=== PATIENT | female | born 1985 | race Caucasian/White ===

== ENCOUNTER → 2016-09-06 | Outpatient (CLI) | payer MEDICAID ==
--- NOTE | 2016-09-09 18:45 | US ---
EXAM DATE: 09/06/16 PATIENT'S AGE: 30 Patient: RYAN DAVIS Facility: [place], [place] Site . Site : 1985 Study: US OB Pelvis [id number]/10/2017 5:01:19 PM Ordering Physician: Sandra Pelaez Final Report: INDICATION: survey. TECHNIQUE: Conventional transabdominal two-dimensional grayscale ultrasound examination. COMPARISON: None. FINDINGS: There is a living fetus with gestational age of 20 weeks 6 days by LMP and 20 weeks 5 days by today`s measurements. EDC based on LMP is 01/18/2017. BPD: 4.8 cm, 20 weeks 5 days Head circumference: 18.4 cm, 20 weeks 4 days Abdominal circumference: 15.0 cm, 20 weeks 3 days Femur length: 3.6 cm, 21 weeks 4 days The weight is estimated at 386 grams, the 48th percentile. The heart rate is measured at 147 beats per minute and the rhythm appears regular. The quality of the survey is less than optimal due to the patient`s large body habitus. The head and spine are grossly intact. No gross facial abnormality is evident. The upper lip is intact. Four cardiac chambers are demonstrated. The heart and stomach appear to be on the same side. The diaphragm is intact. Two kidneys and a bladder are demonstrated. The cord insertion is normal and 3 cord vessels are noted. Four extremities are demonstrated. The amniotic fluid volume is within normal limits with CELIA of 16 cm. The placenta is anterior with no evidence of previa. IMPRESSION: 1. Living fetus with gestational age of 20 weeks 6 days by LMP and 20 weeks 5 days by today`s measurements. EDC based on LMP is 01/18/2017. 2. Less than optimal survey due to the patient`s large body habitus. No gross anomaly evident. Dictated by Sherman Gamino MD @ Sep 09 2016 10:06AM (Electronic Signature) Report Signed by Proxy and Original Signed Document filed in the Medical Record. CHIVOD
== END ==
LOC: MW.US 15:54
PROVIDERS: ATTEND Obstetrics & Gynecology
DX: Z34.90 Encounter for supervision of normal pregnancy, unspecified, unspecified trimester (principal); Z36 Encounter for antenatal screening of mother; Z3A.20 20 weeks gestation of pregnancy
CPT/HCPCS: 76805; 76805-26

== ENCOUNTER → 2016-09-06 | Outpatient (CLI) | payer MEDICAID | LOC: MW.CHOBGYN 14:33 | PROVIDERS: ATTEND Obstetrics & Gynecology | DX: O20.0 Threatened abortion (principal) | CPT/HCPCS: 81003 ==

== ENCOUNTER → 2016-10-16 | Outpatient (CLI) | payer MEDICAID | LOC: MW.CHOBGYN 10:20 | PROVIDERS: ATTEND Obstetrics & Gynecology | DX: Z34.90 Encounter for supervision of normal pregnancy, unspecified, unspecified trimester (principal) | CPT/HCPCS: 36415; 82950; 85027 ==

== ENCOUNTER → 2016-10-18 | Outpatient (CLI) | payer MEDICAID | LOC: MW.CHOBGYN 08:33 | PROVIDERS: ATTEND Obstetrics & Gynecology | DX: O99.810 Abnormal glucose complicating pregnancy (principal) | CPT/HCPCS: 36415; 82951; 83036 ==

== ENCOUNTER 2017-01-08 07:07 | Inpatient (IN) | payer MEDICAID ==
[2017-01-08] MEDS ORDERED: Terbutaline 1 MG/ML SDV SUBCUT PRN (07:18)
[2017-01-08] MEDS ORDERED: Methylergonovine 0.2 MG/1 ML Amp IM PRN (07:18)
[2017-01-08] MEDS ORDERED: Nalbuphine 10 MG/1 ML Vial IVPUSH PRN (07:18)
[2017-01-08] MEDS ORDERED: Misoprostol 200 MCG Tab PO PRN (07:18)
[2017-01-08] MEDS ORDERED: Water For Irrigation,Sterile 1,000 ML Container IRR PRN (07:18)
[2017-01-08] MEDS ORDERED: Sodium Chloride 0.9% 2.5 ML Syringe FLUSH PRN (07:18)
[2017-01-08] MEDS ORDERED: Sodium Chloride 0.9% 10 ML Syringe FLUSH PRN (07:18)
[2017-01-08] MEDS ORDERED: Ampicillin 2 GM in Sodium Chloride 0.9% 100 ML IV ONE (07:18)
[2017-01-08] MEDS ORDERED: Carboprost Tromethamine 250 MCG/1 ML Amp IM PRN (07:18)
[2017-01-08] MEDS ORDERED: Lidocaine 1% 50 ML MDV INJECT PRN (07:18)
[2017-01-08] MEDS ORDERED: Oxytocin/Lactated Ringers 30 UNIT/500 ML BAG IV SCH ×2 (07:30)
[2017-01-08] MEDS ORDERED: Lactated Ringers 1,000 ML IV SCH (07:30)
[2017-01-08] MEDS ORDERED: Dextrose 5%-0.9% NaCl 1,000 ML IV SCH (07:30)
[2017-01-08] MEDS ORDERED: Misoprostol 25 MCG (1/4 of 100 MCG) Tab VAG SCH (07:30)
[2017-01-08 08:28] LABS: CHLORIDE,CL 108 mmol/L (98-110); SODIUM,NA 135 mmol/L (136-146)
[2017-01-08] MEDS: Dextrose 5%-Lactated Ringers 1,000 ML IV SCH ×2 (09:59→21:19)
[2017-01-08] MEDS: Sodium Chloride 0.9% 1,000 ML IV SCH (10:04)
[2017-01-08] MEDS: Butorphanol 1 MG/ML SDV IVPUSH PRN ×4 (14:01→22:33)
[2017-01-08] MEDS: Ampicillin 1 GM in Sodium Chloride 0.9% 50 ML IV SCH ×3 (14:08→23:07)
[2017-01-08] MEDS ORDERED: Ondansetron 4 MG/2 ML SDV IVPUSH PRN (19:08)
[2017-01-08] MEDS: Promethazine 25 MG/ML SDV IM PRN (20:17)
[2017-01-08] MEDS: Misoprostol 25 MCG (1/4 of 100 MCG) Tab VAG PRN (20:19)
[2017-01-09] MEDS: Butorphanol 1 MG/ML SDV IVPUSH PRN ×8 (00:11→17:58)
[2017-01-09] MEDS: Misoprostol 25 MCG (1/4 of 100 MCG) Tab VAG PRN ×4 (00:12→12:28)
[2017-01-09] MEDS: Ampicillin 1 GM in Sodium Chloride 0.9% 50 ML IV SCH ×5 (04:08→21:24)
[2017-01-09] MEDS: Dextrose 5%-Lactated Ringers 1,000 ML IV SCH ×2 (07:42→17:51)
[2017-01-09] MEDS: Promethazine 25 MG/ML SDV IM PRN (12:34)
[2017-01-09] MEDS ORDERED: hydrOXYzine Pamoate 25 MG Cap PO ONE (15:18)
[2017-01-09] MEDS ORDERED: Misoprostol 50 MCG (1/2 of 100 MCG) Tab VAG SCH ×2 (16:30)
[2017-01-09] MEDS: Misoprostol 25 MCG (1/4 of 100 MCG) Tab VAG SCH (16:53)
[2017-01-09] MEDS ORDERED: Ropivacaine 0.2% 2 MG/ML 20 ML SDV ONE (18:56)
--- NOTE | 2017-01-09 19:29 | PCM.PREANE ---
Preanesthetic Assessment - Procedure Proposed Procedure: labor induction on insulin gtt - Anesthesia/Transfusion/Family Hx Anesthesia History: Prior Anesthesia Without Reaction Family History of Anesthesia Reaction: No - Review of Systems Other: Reports: None - Physical Assessment Height: 5 ft 1.5 in Weight: 130 kg ASA Class: 3 Mental Status: Alert & Oriented x3 Airway Class: Mallampati = 2 Dentition: Reports: Normal Dentition, Broken Tooth/Teeth (left front chipped) Thyro-Mental Finger Breadths: 3 Mouth Opening Finger Breadths: 3 ROM/Head Extension: Full - Lab Values: Laboratory Last Values WBC 9.59 K/uL (4.0-11.0) 01/09/17 18:07 RBC 3.65 M/uL (4.30-5.90) L 01/09/17 18:07 Hgb 12.1 g/dL (12.0-16.0) 01/09/17 18:07 Hct 34.8 % (36.0-46.0) L 01/09/17 18:07 MCV 95.3 fL (80.0-98.0) 01/09/17 18:07 MCH 33.2 pg (27.0-32.0) H 01/09/17 18:07 MCHC 34.8 g/dL (31.0-37.0) 01/09/17 18:07 RDW Std Deviation 48.7 fl (28.0-62.0) 01/09/17 18:07 RDW Coeff of Raúl 14 % (11.0-15.0) 01/09/17 18:07 Plt Count 110 K/uL (150-400) L 01/09/17 18:07 MPV 9.60 fL (7.40-12.00) 01/09/17 18:07 Nucleated RBC % 0.0 /100WBC 01/09/17 18:07 Nucleated RBCs # 0 K/uL 01/09/17 18:07 Sodium 135 mmol/L (136-146) L 01/08/17 07:57 Potassium 3.9 mmol/L (3.5-5.1) 01/08/17 07:57 Chloride 108 mmol/L (98-110) 01/08/17 07:57 Carbon Dioxide 21 mmol/L (21-31) 01/08/17 07:57 BUN 9 mg/dL (6.0-23.0) 01/08/17 07:57 Creatinine 0.7 mg/dL (0.6-1.5) 01/08/17 07:57 Est Cr Clr Drug Dosing 92.10 mL/min 01/08/17 07:57 Estimated GFR (MDRD) > 60.0 ml/min 01/08/17 07:57 Glucose 201 mg/dL (60-110) H 01/08/17 07:57 POC Glucose 102 mg/dL (60-110) 01/09/17 18:33 Uric Acid 3.8 mg/dL (2.1-6.2) 01/08/17 07:57 Calcium 8.6 mg/dL (8.8-10.8) L 01/08/17 07:57 Total Bilirubin 0.4 mg/dL (0.1-1.5) 01/08/17 07:57 AST 12 IU/L (5-40) 01/08/17 07:57 ALT 22 IU/L (8-54) 01/08/17 07:57 Alkaline Phosphatase 218 (40-150) H 01/08/17 07:57 Total Protein 5.7 g/dL (6.0-8.0) L 01/08/17 07:57 Albumin 2.7 g/dL (3.5-5.0) L 01/08/17 07:57 Globulin 3.0 g/dL (2.0-3.5) 01/08/17 07:57 Albumin/Globulin Ratio 0.9 (1.3-2.8) L 01/08/17 07:57 Membrane Rupture NEGATIVE 01/08/17 22:20 Urine Opiates Screen NEGATIVE (NEGATIVE) 01/08/17 09:25 Ur Oxycodone Screen NEGATIVE (NEGATIVE) 01/08/17 09:25 Urine Methadone Screen NEGATIVE (NEGATIVE) 01/08/17 09:25 Ur Barbiturates Screen NEGATIVE (NEGATIVE) 01/08/17 09:25 Ur Phencyclidine Scrn NEGATIVE (NEGATIVE) 01/08/17 09:25 Ur Amphetamine Screen NEGATIVE (NEGATIVE) 01/08/17 09:25 U Methamphetamines Scrn NEGATIVE (NEGATIVE) 01/08/17 09:25 U Benzodiazepines Scrn NEGATIVE (NEGATIVE) 01/08/17 09:25 U Cocaine Metab Screen NEGATIVE (NEGATIVE) 01/08/17 09:25 U Marijuana (THC) Screen NEGATIVE (NEGATIVE) 01/08/17 09:25 Blood Type O POSITIVE 01/08/17 07:57 Antibody Screen NEGATIVE 01/08/17 07:57 - Allergies Allergies/Adverse Reactions: Allergies Allergy/AdvReac Type Severity Reaction Status Date / Time No Known Allergies Allergy Verified 05/30/16 20:46 - Blood Blood Available: Yes Product(s) Available: PRBC - Acknowledgements Anesthesia Type Planned: Epidural Pt an Appropriate Candidate for the Planned Anesthesia: Yes Alternatives and Risks of Anesthesia Discussed w Pt/Guardian: Yes Pt/Guardian Understands and Agrees with Anesthesia Plan: Yes PreAnesthesia Questionnaire - Past Health History Medical/Surgical History: Denies 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: Psychiatric History: Reports: Suicide Attempt Endocrine/Metabolic History: Reports: Diabetes, Gestational, Diabetes, Type II Hematologic History: Reports: Other (See Below) Other Hematologic History: thrombocytopenia - Infectious Disease History Infectious Disease History: Reports: None - Past Surgical History GI Surgical History: Reports: Appendectomy, Cholecystectomy - SUBSTANCE USE Smoking Status *Q: Never Smoker Tobacco Use Within Last Twelve Months: Cigarettes Recreational Drug Use History: Yes Recreational Drug Type: Reports: Methamphetamine - HOME MEDS Home Medications: Home Meds Insulin NPH Human Isophane [Humulin N] 100 unit SQ 01/08/17 [History] Insulin Regular, Human [Humulin R] 12 units SUBCUT 01/08/17 [History] Pnv No.95/Ferrous Fum/Folic AC [ Multivitamin Tablet] 1 each PO DAILY [History] Venlafaxine [Effexor XR 24 Hr] 75 mg PO 01/08/17 [History] - CURRENT (IN HOUSE) MEDS Current Meds: Current Medications Butorphanol Tartrate (Stadol) 1 mg IVPUSH Q1H PRN PRN Reason: Pain Last Admin: 01/09/17 17:58 Dose: 1 mg Carboprost Tromethamine (Hemabate Ds) 250 mcg IM ASDIRECTED PRN PRN Reason: Post Hemorrhage Ampicillin Sodium 1 gm/ Sodium (Chloride) 50 mls @ 100 mls/hr IV Q4H ISABEL Last Admin: 01/09/17 16:50 Dose: 100 mls/hr Oxytocin/Lactated Ringer's (Pitocin In Lr 30 Units/500 Ml) 30 unit in 500 mls @ 2 mls/hr IV TITRATE ISABEL; 2 MUNITS/MIN PRN Reason: Protocol Insulin Human Regular 100 unit (/ Sodium Chloride) 100 mls @ 0.5 mls/hr IV TITRATE ISABEL; 0.5 UNIT/HR PRN Reason: Protocol Last Titration: 01/09/17 11:16 Dose: 1 unit/hr, 1 mls/hr Dextrose/Sodium Chloride (Dextrose 5%-Normal Saline) 1,000 mls @ 100 mls/hr IV ASDIRECTED ISABEL Dextrose/Lactated Ringer's (Dextrose 5%-Lactated Ringers) 1,000 mls @ 100 mls/ hr IV ASDIRECTED ISABEL Last Admin: 01/09/17 17:51 Dose: 100 mls/hr Sodium Chloride (Normal Saline) 1,000 mls @ 125 mls/hr IV ASDIRECTED ISABEL Last Infusion: 01/08/17 10:23 Dose: 0 mls/hr Lidocaine HCl (Xylocaine 1%) 50 ml INJECT .ONCE PRN PRN Reason: Laceration repair Methylergonovine Maleate (Methergine) 0.2 mg IM ASDIRECTED PRN PRN Reason: Post Hemorrhage Misoprostol (Cytotec) 200 mcg PO .ONCE PRN PRN Reason: Post Hemorrhage Misoprostol (Cytotec) 25 mcg VAG Q4H ISABEL Last Admin: 01/09/17 16:53 Dose: 25 mcg Ondansetron HCl (Zofran) 8 mg IVPUSH Q4H PRN PRN Reason: Nausea/Vomiting Last Admin: 01/08/17 20:15 Dose: 8 mg Promethazine HCl (Phenergan) 25 mg IM Q4H PRN PRN Reason: Nausea/Vomiting Last Admin: 01/09/17 12:34 Dose: 25 mg Sodium Chloride (Saline Flush) 10 ml FLUSH ASDIRECTED PRN PRN Reason: Keep Vein Open Sodium Chloride (Saline Flush) 2.5 ml FLUSH ASDIRECTED PRN PRN Reason: Keep Vein Open Sterile Water (Sterile Water For Irrigation) 1,000 ml IRR ASDIRECTED PRN PRN Reason: delivery Terbutaline Sulfate (Brethine) 0.25 mg SUBCUT ASDIRECTED PRN PRN Reason: Tacysystole Discontinued Medications Hydroxyzine Pamoate (Vistaril) 50 mg PO ONETIME ONE Stop: 01/09/17 15:19 Last Admin: 01/09/17 15:23 Dose: 50 mg Ampicillin Sodium 2 gm/ Sodium (Chloride) 100 mls @ 200 mls/hr IV ONETIME ONE Stop: 01/08/17 07:47 Last Admin: 01/08/17 10:04 Dose: 200 mls/hr Lactated Ringer's (Ringers, Lactated) 1,000 mls @ 150 mls/hr IV ASDIRECTED ISABEL Oxytocin/Lactated Ringer's (Pitocin In Lr 30 Units/500 Ml) 30 unit in 500 mls @ 999 mls/hr IV TITRATE ISABEL; 999 MUNITS/MIN PRN Reason: Protocol Stop: 01/08/17 08:01 Ropivacaine/Fentanyl/NS (Fentanyl 2 Mcg-Ropiv 0.2%-Ns) Confirm Administered Dose 100 mls @ as directed .ROUTE .STK-MED ONE Stop: 01/09/17 18:56 Misoprostol (Cytotec) 25 mcg VAG .ONCE ISABEL Last Admin: 01/08/17 09:40 Dose: 25 mcg Misoprostol (Cytotec) 25 mcg VAG Q4H PRN PRN Reason: Cervical Ripening Stop: 01/09/17 11:19 Last Admin: 01/09/17 12:28 Dose: 25 mcg Misoprostol (Cytotec) 25 mcg VAG Q4H ISABEL Misoprostol (Cytotec) 25 mcg VAG Q4H ISABEL Nalbuphine HCl (Nubain) 10 mg IVPUSH Q1H PRN PRN Reason: Pain (severe 7-10) Stop: 01/08/17 09:19 Ropivacaine (Naropin 0.2%) Confirm Administered Dose 20 ml .ROUTE .STK-MED ONE Stop: 01/09/17 18:57
[2017-01-10] MEDS: Ampicillin 1 GM in Sodium Chloride 0.9% 50 ML IV SCH ×5 (00:51→12:46)
[2017-01-10] MEDS: Dextrose 5%-Lactated Ringers 1,000 ML IV SCH ×2 (03:51→14:01)
[2017-01-10] MEDS ORDERED: Acetaminophen 500 MG Tab PO ONE (07:15)
[2017-01-10] MEDS: Sodium Chloride 0.9% 1,000 ML IV SCH (13:18)
[2017-01-10] MEDS ORDERED: Ropivacaine HCl/PF 100 ML ONE (13:29)
[2017-01-10] MEDS ORDERED: Bupivacaine 0.5% 10 ML SDV ONE (16:00)
[2017-01-10] MEDS ORDERED: Oxytocin 10 Units/1 ML SDV ONE (16:13)
[2017-01-10] MEDS ORDERED: Ondansetron 4 MG/2 ML SDV ONE (16:13)
[2017-01-10] MEDS ORDERED: ceFAZolin 1 GM Vial ONE (16:16)
[2017-01-10] MEDS ORDERED: Sodium Chloride 0.9% 20 ML ONE (16:16)
[2017-01-10] MEDS ORDERED: ePHEDrine 50 MG/ML SDV ONE (16:24)
[2017-01-10] MEDS ORDERED: Nitroglycerin/D5W 0 MG/0 ML BOTTLE ONE (16:31)
[2017-01-10] MEDS ORDERED: fentaNYL 100 MCG/2 ML SDV ONE (16:42)
[2017-01-10] MEDS ORDERED: Morphine PF 10 MG/10 ML SDV ONE (16:47)
[2017-01-10] MEDS ORDERED: Phenylephrine/Normal Saline 100 MCG/ML 10 ML Syringe ONE (16:59)
[2017-01-10] MEDS ORDERED: Acetaminophen/oxyCODONE 325-5 MG Tab PO PRN (18:04)
[2017-01-10] MEDS ORDERED: Lanolin 100% Cream 7 GM Tube TOP PRN (18:04)
[2017-01-10] MEDS ORDERED: Ondansetron 4 MG/2 ML SDV IV PRN (18:04)
[2017-01-10] MEDS ORDERED: Bisacodyl 10 MG Supp RECTAL PRN (18:04)
[2017-01-10] MEDS ORDERED: diphenhydrAMINE 50 MG/ML SDV IVPUSH PRN ×2 (18:04→18:17)
[2017-01-10] MEDS ORDERED: Lactated Ringers 1,000 ML IV SCH (18:15)
[2017-01-10] MEDS ORDERED: Nalbuphine 10 MG/1 ML Vial IVPUSH PRN (18:17)
[2017-01-10] MEDS ORDERED: Naloxone 0.4 MG/ML Syringe IVPUSH PRN (18:17)
[2017-01-10] MEDS: Ketorolac 30 MG/ML SDV IVPUSH SCH (18:28)
[2017-01-10] MEDS: Docusate Sodium 100 MG Cap PO SCH (22:09)
[2017-01-10] MEDS: Nystatin Topical Powder 15 GM Bottle TOP SCH (22:54)
[2017-01-11] MEDS: Ketorolac 30 MG/ML SDV IVPUSH SCH ×4 (00:25→22:55)
[2017-01-11] MEDS: Misoprostol 25 MCG (1/4 of 100 MCG) Tab VAG SCH ×5 (04:50→10:08)
[2017-01-11] MEDS: Ampicillin 1 GM in Sodium Chloride 0.9% 50 ML IV SCH (04:54)
[2017-01-11] MEDS: Nystatin Topical Powder 15 GM Bottle TOP SCH ×2 (06:31→13:46)
--- NOTE | 2017-01-11 09:47 | PCM.PNPP ---
- General Info Date of Service: 01/11/17 Functional Status: Reports: pain controlled, tolerating diet - Review of Systems General: Denies: Fever, Weakness Pulmonary: Denies: shortness of breath Cardiovascular: Denies: Chest Pain, Palpitations, Lightheadedness Gastrointestinal: Reports: Abdominal pain (incisional--controlled overall with duramorph). Denies: Nausea, Vomiting Genitourinary: Denies: flank pain Psychiatric: Reports: no symptoms - General Info Date of Service: 01/11/17 - Patient Data Vital Signs - most recent: Last Vital Signs Temp 37.2 C 01/11/17 04:00 Pulse 94 01/11/17 07:00 Resp 15 01/11/17 07:00 BP 143/77 H 01/11/17 04:00 Pulse Ox 96 01/11/17 07:00 Weight - most recent: 130 kg I&O - last 24 hours: Intake & Output 01/10/17 01/11/17 01/11/17 22:59 06:59 14:59 Intake Total 2600 Output Total 400 600 Balance 2200 -600 Lab Results - last 24 hrs: Laboratory Results - last 24 hr 01/08/17 01/08/17 01/08/17 Range/Units 07:57 07:57 07:57 WBC 6.20 (4.0-11.0) K/uL RBC 3.47 L (4.30-5.90) M/uL Hgb 11.2 L (12.0-16.0) g/dL Hct 33.1 L (36.0-46.0) % MCV 95.4 (80.0-98.0) fL MCH 32.3 H (27.0-32.0) pg MCHC 33.8 (31.0-37.0) g/dL RDW Std Deviation 47.6 (28.0-62.0) fl RDW Coeff of Raúl 14 (11.0-15.0) % Plt Count 103 L (150-400) K/uL MPV 9.40 (7.40-12.00) fL Neut % (Auto) (48.0-80.0) % Lymph % (Auto) (16.0-40.0) % [place] % (Auto) (0.0-15.0) % Eos % (Auto) (0.0-7.0) % Baso % (Auto) (0.0-1.5) % Neut # (Auto) (1.4-5.7) K/uL Lymph # (Auto) (0.6-2.4) K/uL [place] # (Auto) (0.0-0.8) K/uL Eos # (Auto) (0.0-0.7) K/uL Baso # (Auto) (0.0-0.1) K/uL Nucleated RBC % 0.0 /100WBC Nucleated RBCs # 0 K/uL Sodium 135 L (136-146) mmol/L Potassium 3.9 (3.5-5.1) mmol/L Chloride 108 (98-110) mmol/L Carbon Dioxide 21 (21-31) mmol/L BUN 9 (6.0-23.0) mg/dL Creatinine 0.7 (0.6-1.5) mg/dL Est Cr Clr Drug Dosing 92.10 mL/min Estimated GFR (MDRD) > 60.0 ml/min Glucose 201 H (60-110) mg/dL POC Glucose (60-110) mg/dL Calcium 8.6 L (8.8-10.8) mg/dL Total Bilirubin 0.4 (0.1-1.5) mg/dL AST 12 (5-40) IU/L ALT 22 (8-54) IU/L Alkaline Phosphatase 218 H (40-150) Total Protein 5.7 L (6.0-8.0) g/dL Albumin 2.7 L (3.5-5.0) g/dL Globulin 3.0 (2.0-3.5) g/dL Albumin/Globulin Ratio 0.9 L (1.3-2.8) Blood Type O POSITIVE Antibody Screen NEGATIVE Crossmatch See Detail 01/10/17 01/10/17 01/10/17 Range/Units 10:05 11:08 12:26 WBC (4.0-11.0) K/uL RBC (4.30-5.90) M/uL Hgb (12.0-16.0) g/dL Hct (36.0-46.0) % MCV (80.0-98.0) fL MCH (27.0-32.0) pg MCHC (31.0-37.0) g/dL RDW Std Deviation (28.0-62.0) fl RDW Coeff of Raúl (11.0-15.0) % Plt Count (150-400) K/uL MPV (7.40-12.00) fL Neut % (Auto) (48.0-80.0) % Lymph % (Auto) (16.0-40.0) % [place] % (Auto) (0.0-15.0) % Eos % (Auto) (0.0-7.0) % Baso % (Auto) (0.0-1.5) % Neut # (Auto) (1.4-5.7) K/uL Lymph # (Auto) (0.6-2.4) K/uL [place] # (Auto) (0.0-0.8) K/uL Eos # (Auto) (0.0-0.7) K/uL Baso # (Auto) (0.0-0.1) K/uL Nucleated RBC % /100WBC Nucleated RBCs # K/uL Sodium (136-146) mmol/L Potassium (3.5-5.1) mmol/L Chloride (98-110) mmol/L Carbon Dioxide (21-31) mmol/L BUN (6.0-23.0) mg/dL Creatinine (0.6-1.5) mg/dL Est Cr Clr Drug Dosing mL/min Estimated GFR (MDRD) ml/min Glucose (60-110) mg/dL POC Glucose 141 H 121 H 133 H (60-110) mg/dL Calcium (8.8-10.8) mg/dL Total Bilirubin (0.1-1.5) mg/dL AST (5-40) IU/L ALT (8-54) IU/L Alkaline Phosphatase (40-150) Total Protein (6.0-8.0) g/dL Albumin (3.5-5.0) g/dL Globulin (2.0-3.5) g/dL Albumin/Globulin Ratio (1.3-2.8) Blood Type Antibody Screen Crossmatch 01/10/17 01/10/17 01/10/17 Range/Units 13:35 14:37 17:49 WBC (4.0-11.0) K/uL RBC (4.30-5.90) M/uL Hgb (12.0-16.0) g/dL Hct (36.0-46.0) % MCV (80.0-98.0) fL MCH (27.0-32.0) pg MCHC (31.0-37.0) g/dL RDW Std Deviation (28.0-62.0) fl RDW Coeff of Raúl (11.0-15.0) % Plt Count (150-400) K/uL MPV (7.40-12.00) fL Neut % (Auto) (48.0-80.0) % Lymph % (Auto) (16.0-40.0) % [place] % (Auto) (0.0-15.0) % Eos % (Auto) (0.0-7.0) % Baso % (Auto) (0.0-1.5) % Neut # (Auto) (1.4-5.7) K/uL Lymph # (Auto) (0.6-2.4) K/uL [place] # (Auto) (0.0-0.8) K/uL Eos # (Auto) (0.0-0.7) K/uL Baso # (Auto) (0.0-0.1) K/uL Nucleated RBC % /100WBC Nucleated RBCs # K/uL Sodium (136-146) mmol/L Potassium (3.5-5.1) mmol/L Chloride (98-110) mmol/L Carbon Dioxide (21-31) mmol/L BUN (6.0-23.0) mg/dL Creatinine (0.6-1.5) mg/dL Est Cr Clr Drug Dosing mL/min Estimated GFR (MDRD) ml/min Glucose (60-110) mg/dL POC Glucose 133 H 108 141 H (60-110) mg/dL Calcium (8.8-10.8) mg/dL Total Bilirubin (0.1-1.5) mg/dL AST (5-40) IU/L ALT (8-54) IU/L Alkaline Phosphatase (40-150) Total Protein (6.0-8.0) g/dL Albumin (3.5-5.0) g/dL Globulin (2.0-3.5) g/dL Albumin/Globulin Ratio (1.3-2.8) Blood Type Antibody Screen Crossmatch 01/11/17 01/11/17 Range/Units 06:28 06:28 WBC 14.17 H (4.0-11.0) K/uL RBC 2.69 L (4.30-5.90) M/uL Hgb 8.9 L (12.0-16.0) g/dL Hct 25.5 L (36.0-46.0) % MCV 94.8 (80.0-98.0) fL MCH 33.1 H (27.0-32.0) pg MCHC 34.9 (31.0-37.0) g/dL RDW Std Deviation 47.9 (28.0-62.0) fl RDW Coeff of Raúl 14 (11.0-15.0) % Plt Count 109 L (150-400) K/uL MPV 10.10 (7.40-12.00) fL Neut % (Auto) 83.2 H (48.0-80.0) % Lymph % (Auto) 9.9 L (16.0-40.0) % [place] % (Auto) 6.6 (0.0-15.0) % Eos % (Auto) 0.2 (0.0-7.0) % Baso % (Auto) 0.1 (0.0-1.5) % Neut # (Auto) 11.8 H (1.4-5.7) K/uL Lymph # (Auto) 1.4 (0.6-2.4) K/uL [place] # (Auto) 0.9 H (0.0-0.8) K/uL Eos # (Auto) 0.0 (0.0-0.7) K/uL Baso # (Auto) 0.0 (0.0-0.1) K/uL Nucleated RBC % 0.0 /100WBC Nucleated RBCs # 0 K/uL Sodium 132 L (136-146) mmol/L Potassium 4.0 (3.5-5.1) mmol/L Chloride 103 (98-110) mmol/L Carbon Dioxide 19 L (21-31) mmol/L BUN 20 (6.0-23.0) mg/dL Creatinine 1.3 (0.6-1.5) mg/dL Est Cr Clr Drug Dosing 48.45 mL/min Estimated GFR (MDRD) 47.8 ml/min Glucose 158 H (60-110) mg/dL POC Glucose (60-110) mg/dL Calcium 7.4 L (8.8-10.8) mg/dL Total Bilirubin (0.1-1.5) mg/dL AST (5-40) IU/L ALT (8-54) IU/L Alkaline Phosphatase (40-150) Total Protein (6.0-8.0) g/dL Albumin (3.5-5.0) g/dL Globulin (2.0-3.5) g/dL Albumin/Globulin Ratio (1.3-2.8) Blood Type Antibody Screen Crossmatch Med Orders - Current: Current Medications Bisacodyl (Dulcolax) 10 mg RECTAL .ONCE PRN PRN Reason: Constipation Butorphanol Tartrate (Stadol) 1 mg IVPUSH Q1H PRN PRN Reason: Pain Last Admin: 01/09/17 17:58 Dose: 1 mg Diphenhydramine HCl (Benadryl) 25 mg IVPUSH Q6H PRN PRN Reason: Itching or Nausea Diphenhydramine HCl (Benadryl) 25 mg IVPUSH Q4H PRN PRN Reason: Itching Stop: 01/11/17 18:18 Docusate Sodium (Colace) 100 mg PO BID ISABEL Last Admin: 01/10/17 22:09 Dose: 100 mg Emollient Ointment (Lansinoh Hpa) 0 gm TOP ASDIRECTED PRN PRN Reason: Sore Nipples Oxytocin/Lactated Ringer's (Pitocin In Lr 30 Units/500 Ml) 30 unit in 500 mls @ 2 mls/hr IV TITRATE ISABEL; 2 MUNITS/MIN PRN Reason: Protocol Last Titration: 01/10/17 02:16 Dose: 22 munits/min, 22 mls/hr Insulin Human Regular 100 unit (/ Sodium Chloride) 100 mls @ 0.5 mls/hr IV TITRATE ISABEL; 0.5 UNIT/HR PRN Reason: Protocol Last Titration: 01/10/17 11:19 Dose: 1 unit/hr, 1 mls/hr Sodium Chloride (Normal Saline) 1,000 mls @ 125 mls/hr IV ASDIRECTED ISABEL Last Admin: 01/10/17 13:18 Dose: 125 mls/hr Lactated Ringer's (Ringers, Lactated) 1,000 mls @ 125 mls/hr IV ASDIRECTED [facility] Last Admin: 01/10/17 22:12 Dose: 125 mls/hr Ibuprofen (Motrin) 800 mg PO Q8H PRN PRN Reason: mild pain or fever Ketorolac Tromethamine (Toradol) 30 mg IVPUSH Q6H [facility] Stop: 01/11/17 18:16 Last Admin: 01/11/17 06:27 Dose: 30 mg Lidocaine HCl (Xylocaine 1%) 50 ml INJECT .ONCE PRN PRN Reason: Laceration repair Methylergonovine Maleate (Methergine) 0.2 mg IM ASDIRECTED PRN PRN Reason: Post Hemorrhage Misoprostol (Cytotec) 200 mcg PO .ONCE PRN PRN Reason: Post Hemorrhage Misoprostol (Cytotec) 25 mcg VAG Q4H [facility] Last Admin: 01/11/17 04:51 Dose: Not Given Nalbuphine HCl (Nubain) 5 mg IVPUSH Q3H PRN PRN Reason: Pruritis Stop: 01/11/17 18:18 Naloxone HCl (Narcan) 0.1 mg IVPUSH ONETIME PRN PRN Reason: Respiratory Depression Stop: 01/11/17 18:18 Nystatin (Nystop) 0 gm TOP TID [facility] Last Admin: 01/11/17 06:31 Dose: 1 applic Ondansetron HCl (Zofran) 8 mg IVPUSH Q4H PRN PRN Reason: Nausea/Vomiting Last Admin: 01/08/17 20:15 Dose: 8 mg Ondansetron HCl (Zofran) 4 mg IV Q4H PRN PRN Reason: Nausea/Vomiting Oxycodone/Acetaminophen (Percocet 325-5 Mg) 1 tab PO Q4H PRN PRN Reason: Pain (moderate 4-6) Oxycodone/Acetaminophen (Percocet 325-5 Mg) 2 tab PO Q4H PRN PRN Reason: Pain (moderate 4-6) Promethazine HCl (Phenergan) 25 mg IM Q4H PRN PRN Reason: Nausea/Vomiting Last Admin: 01/09/17 12:34 Dose: 25 mg Sodium Chloride (Saline Flush) 10 ml FLUSH ASDIRECTED PRN PRN Reason: Keep Vein Open Sodium Chloride (Saline Flush) 2.5 ml FLUSH ASDIRECTED PRN PRN Reason: Keep Vein Open Sterile Water (Sterile Water For Irrigation) 1,000 ml IRR ASDIRECTED PRN PRN Reason: delivery Terbutaline Sulfate (Brethine) 0.25 mg SUBCUT ASDIRECTED PRN PRN Reason: Tacysystole Discontinued Medications Acetaminophen (Tylenol Extra Strength) 1,000 mg PO ONETIME ONE Stop: 01/10/17 07:16 Last Admin: 01/10/17 07:19 Dose: 1,000 mg Bupivacaine HCl (Sensorcaine-Mpf 0.5%) Confirm Administered Dose 10 ml .ROUTE .STK-MED ONE Stop: 01/10/17 16:01 Last Admin: 01/11/17 04:51 Dose: Not Given Carboprost Tromethamine (Hemabate Ds) 250 mcg IM ASDIRECTED PRN PRN Reason: Post Hemorrhage Cefazolin Sodium (Ancef) Confirm Administered Dose 3 gm .ROUTE .STK-MED ONE Stop: 01/10/17 16:17 Ephedrine Sulfate (Ephedrine Sulfate) Confirm Administered Dose 50 mg .ROUTE .STK-MED ONE Stop: 01/10/17 16:25 Fentanyl (Sublimaze) Confirm Administered Dose 100 mcg .ROUTE .STK-MED ONE Stop: 01/10/17 16:43 Glycopyrrolate () Confirm Administered Dose 1 mg .ROUTE .STK-MED ONE Stop: 01/10/17 16:25 Hydroxyzine Pamoate (Vistaril) 50 mg PO ONETIME ONE Stop: 01/09/17 15:19 Last Admin: 01/09/17 15:23 Dose: 50 mg Ampicillin Sodium 2 gm/ Sodium (Chloride) 100 mls @ 200 mls/hr IV ONETIME ONE Stop: 01/08/17 07:47 Last Admin: 01/08/17 10:04 Dose: 200 mls/hr Ampicillin Sodium 1 gm/ Sodium (Chloride) 50 mls @ 100 mls/hr IV Q4H ISABEL Last Admin: 01/11/17 04:54 Dose: Not Given Lactated Ringer's (Ringers, Lactated) 1,000 mls @ 150 mls/hr IV ASDIRECTED ISABEL Oxytocin/Lactated Ringer's (Pitocin In Lr 30 Units/500 Ml) 30 unit in 500 mls @ 999 mls/hr IV TITRATE ISABEL; 999 MUNITS/MIN PRN Reason: Protocol Stop: 01/08/17 08:01 Dextrose/Sodium Chloride (Dextrose 5%-Normal Saline) 1,000 mls @ 100 mls/hr IV ASDIRECTED ISABEL Dextrose/Lactated Ringer's (Dextrose 5%-Lactated Ringers) 1,000 mls @ 100 mls/ hr IV ASDIRECTED ISABEL Last Admin: 01/10/17 14:01 Dose: 100 mls/hr Ropivacaine/Fentanyl/NS (Fentanyl 2 Mcg-Ropiv 0.2%-Ns) Confirm Administered Dose 100 mls @ as directed .ROUTE .STK-MED ONE Stop: 01/09/17 18:56 Ropivacaine/Fentanyl/NS (Fentanyl 2 Mcg-Ropiv 0.2%-Ns) Confirm Administered Dose 100 mls @ as directed .ROUTE .STK-MED ONE Stop: 01/10/17 03:36 Last Admin: 01/11/17 04:51 Dose: Not Given Ropivacaine (Naropin 0.2%) Confirm Administered Dose 100 mls @ as directed .ROUTE .STK-MED ONE Stop: 01/10/17 13:30 Last Admin: 01/11/17 04:51 Dose: Not Given Sodium Chloride (Normal Saline) Confirm Administered Dose 20 mls @ as directed .ROUTE .STK-MED ONE Stop: 01/10/17 16:17 Nitroglycerin/Dextrose (Nitroglycerin 25 Mg/D5w 250 Ml) Confirm Administered Dose 25 mg in 250 mls @ as directed .ROUTE .STK-MED ONE Stop: 01/10/17 16:32 Misoprostol (Cytotec) 25 mcg VAG .ONCE ISABEL Last Admin: 01/08/17 09:40 Dose: 25 mcg Misoprostol (Cytotec) 25 mcg VAG Q4H PRN PRN Reason: Cervical Ripening Stop: 01/09/17 11:19 Last Admin: 01/09/17 12:28 Dose: 25 mcg Misoprostol (Cytotec) 25 mcg VAG Q4H ISABEL Misoprostol (Cytotec) 25 mcg VAG Q4H ISABEL Morphine Sulfate (Duramorph Pf) Confirm Administered Dose 10 mg .ROUTE .STK-MED ONE Stop: 01/10/17 16:48 Nalbuphine HCl (Nubain) 10 mg IVPUSH Q1H PRN PRN Reason: Pain (severe 7-10) Stop: 01/08/17 09:19 Ondansetron HCl (Zofran) Confirm Administered Dose 4 mg .ROUTE .STK-MED ONE Stop: 01/10/17 16:14 Oxytocin (Pitocin) Confirm Administered Dose 20 unit .ROUTE .STK-MED ONE Stop: 01/10/17 16:14 Phenylephrine HCl (Phenylephrine In Ns 100 Mcg/Ml) Confirm Administered Dose 1 mg .ROUTE .STK-MED ONE Stop: 01/10/17 17:00 Ropivacaine (Naropin 0.2%) Confirm Administered Dose 20 ml .ROUTE .STK-MED ONE Stop: 01/09/17 18:57 - Infant Interaction Support Person: Sister - Recovery Exam Fundal Tone: Firm Fundal Level: At Umbilicus Fundal Placement: Midline Lochia Amount: Scant Lochia Color: Rubra/Red Perineum Description: Other (see below) Other Perinuem Description: Vaginal laceration Bladder Status: Indwelling Catheter in Place Urinary Elimination: Indwelling Catheter - Exam General: alert, oriented Lungs: Normal respiratory effort, Rhonchi Cardiovascular: Regular Rate Abdomen: bowel sounds present, soft. No: CVA tenderness Extremities: no calf tenderness Skin: warm, dry, intact Wound/Incisions: no drainage. No: erythema Psy/Mental Status: alert - Problem List & Annotations (1) delivery delivered SNOMED Code(s): 282758535 Code(s): O82 - ENCOUNTER FOR DELIVERY WITHOUT INDICATION Status: Acute Current Visit: Yes - Problem List Review Problem List Initiated/Reviewed/Updated: Yes - Assessment Assessment:: POD 1 status post Primary LTCS GDM - Plan Plan:: Ambulate today, amin removed. Labs are stable. Glucose 158, will monitor bid and consider oral hypoglycemic as indicated. Continue PP cares.
--- NOTE | 2017-01-11 10:25 | PCM48HPAN ---
Post Anesthesia Note - EVALUATION WITHIN 48HRS OF ANESTHETIC Vital Signs in Normal Range: Yes Patient Participated in Evaluation: Yes Respiratory Function Stable: Yes Airway Patent: Yes Cardiovascular Function Stable: Yes Hydration Status Stable: Yes Pain Control Satisfactory: Yes Nausea and Vomiting Control Satisfactory: Yes Mental Status Recovered: Yes
[2017-01-11] MEDS: Docusate Sodium 100 MG Cap PO SCH ×2 (13:27→22:59)
[2017-01-11] MEDS: Acetaminophen/oxyCODONE 325-5 MG Tab PO PRN ×2 (17:54→23:19)
[2017-01-11] MEDS: Ibuprofen 800 MG Tab PO PRN (22:59)
[2017-01-12] MEDS: Acetaminophen/oxyCODONE 325-5 MG Tab PO PRN ×3 (05:13→21:15)
[2017-01-12] MEDS: Nystatin Topical Powder 15 GM Bottle TOP SCH ×4 (08:19→22:10)
[2017-01-12] MEDS: Docusate Sodium 100 MG Cap PO SCH ×2 (08:19→21:11)
[2017-01-12] MEDS: Ibuprofen 800 MG Tab PO PRN ×2 (08:19→16:34)
--- NOTE | 2017-01-12 11:18 | PCM.PNPP ---
- General Info Date of Service: 01/12/17 Functional Status: Reports: pain controlled, tolerating diet, ambulating, urinating - Review of Systems General: Denies: Fever, Weakness Pulmonary: Denies: shortness of breath Cardiovascular: Denies: Chest Pain, Palpitations, Lightheadedness Gastrointestinal: Reports: Flatus. Denies: Nausea, Vomiting Genitourinary: Denies: flank pain Neurological: Denies: Headache Psychiatric: Reports: no symptoms - General Info Date of Service: 01/12/17 - Patient Data Vital Signs - most recent: Last Vital Signs Temp 36.0 C 01/12/17 04:00 Pulse 96 01/12/17 04:00 Resp 15 01/12/17 04:00 BP 131/76 01/12/17 04:00 Pulse Ox 99 01/12/17 04:00 Weight - most recent: 130 kg Lab Results - last 24 hrs: Laboratory Results - last 24 hr 01/08/17 01/11/17 01/12/17 Range/Units 07:57 17:30 05:11 POC Glucose 151 H 133 H (60-110) mg/dL Blood Type O POSITIVE Antibody Screen NEGATIVE Crossmatch See Detail Med Orders - Current: Current Medications Bisacodyl (Dulcolax) 10 mg RECTAL .ONCE PRN PRN Reason: Constipation Butorphanol Tartrate (Stadol) 1 mg IVPUSH Q1H PRN PRN Reason: Pain Last Admin: 01/09/17 17:58 Dose: 1 mg Diphenhydramine HCl (Benadryl) 25 mg IVPUSH Q6H PRN PRN Reason: Itching or Nausea Docusate Sodium (Colace) 100 mg PO BID ISABEL Last Admin: 01/12/17 08:19 Dose: 100 mg Emollient Ointment (Lansinoh Hpa) 0 gm TOP ASDIRECTED PRN PRN Reason: Sore Nipples Oxytocin/Lactated Ringer's (Pitocin In Lr 30 Units/500 Ml) 30 unit in 500 mls @ 2 mls/hr IV TITRATE ISABEL; 2 MUNITS/MIN PRN Reason: Protocol Last Titration: 01/10/17 02:16 Dose: 22 munits/min, 22 mls/hr Insulin Human Regular 100 unit (/ Sodium Chloride) 100 mls @ 0.5 mls/hr IV TITRATE ISABEL; 0.5 UNIT/HR PRN Reason: Protocol Last Titration: 01/10/17 11:19 Dose: 1 unit/hr, 1 mls/hr Sodium Chloride (Normal Saline) 1,000 mls @ 125 mls/hr IV ASDIRECTED [facility] Last Admin: 01/10/17 13:18 Dose: 125 mls/hr Lactated Ringer's (Ringers, Lactated) 1,000 mls @ 125 mls/hr IV ASDIRECTED [facility] Last Admin: 01/10/17 22:12 Dose: 125 mls/hr Ibuprofen (Motrin) 800 mg PO Q8H PRN PRN Reason: mild pain or fever Last Admin: 01/12/17 08:19 Dose: 800 mg Lidocaine HCl (Xylocaine 1%) 50 ml INJECT .ONCE PRN PRN Reason: Laceration repair Methylergonovine Maleate (Methergine) 0.2 mg IM ASDIRECTED PRN PRN Reason: Post Hemorrhage Misoprostol (Cytotec) 200 mcg PO .ONCE PRN PRN Reason: Post Hemorrhage Nystatin (Nystop) 0 gm TOP TID [facility] Last Admin: 01/12/17 08:19 Dose: 1 applic Ondansetron HCl (Zofran) 8 mg IVPUSH Q4H PRN PRN Reason: Nausea/Vomiting Last Admin: 01/08/17 20:15 Dose: 8 mg Ondansetron HCl (Zofran) 4 mg IV Q4H PRN PRN Reason: Nausea/Vomiting Oxycodone/Acetaminophen (Percocet 325-5 Mg) 1 tab PO Q4H PRN PRN Reason: Pain (moderate 4-6) Oxycodone/Acetaminophen (Percocet 325-5 Mg) 2 tab PO Q4H PRN PRN Reason: Pain (moderate 4-6) Last Admin: 01/12/17 05:13 Dose: 2 tab Promethazine HCl (Phenergan) 25 mg IM Q4H PRN PRN Reason: Nausea/Vomiting Last Admin: 01/09/17 12:34 Dose: 25 mg Sodium Chloride (Saline Flush) 10 ml FLUSH ASDIRECTED PRN PRN Reason: Keep Vein Open Sodium Chloride (Saline Flush) 2.5 ml FLUSH ASDIRECTED PRN PRN Reason: Keep Vein Open Sterile Water (Sterile Water For Irrigation) 1,000 ml IRR ASDIRECTED PRN PRN Reason: delivery Terbutaline Sulfate (Brethine) 0.25 mg SUBCUT ASDIRECTED PRN PRN Reason: Tacysystole Discontinued Medications Acetaminophen (Tylenol Extra Strength) 1,000 mg PO ONETIME ONE Stop: 01/10/17 07:16 Last Admin: 01/10/17 07:19 Dose: 1,000 mg Bupivacaine HCl (Sensorcaine-Mpf 0.5%) Confirm Administered Dose 10 ml .ROUTE .STK-MED ONE Stop: 01/10/17 16:01 Last Admin: 01/11/17 04:51 Dose: Not Given Carboprost Tromethamine (Hemabate Ds) 250 mcg IM ASDIRECTED PRN PRN Reason: Post Hemorrhage Cefazolin Sodium (Ancef) Confirm Administered Dose 3 gm .ROUTE .STK-MED ONE Stop: 01/10/17 16:17 Diphenhydramine HCl (Benadryl) 25 mg IVPUSH Q4H PRN PRN Reason: Itching Stop: 01/11/17 18:18 Last Admin: 01/11/17 13:42 Dose: 25 mg Ephedrine Sulfate (Ephedrine Sulfate) Confirm Administered Dose 50 mg .ROUTE .STK-MED ONE Stop: 01/10/17 16:25 Fentanyl (Sublimaze) Confirm Administered Dose 100 mcg .ROUTE .STK-MED ONE Stop: 01/10/17 16:43 Glycopyrrolate () Confirm Administered Dose 1 mg .ROUTE .STK-MED ONE Stop: 01/10/17 16:25 Hydroxyzine Pamoate (Vistaril) 50 mg PO ONETIME ONE Stop: 01/09/17 15:19 Last Admin: 01/09/17 15:23 Dose: 50 mg Ampicillin Sodium 2 gm/ Sodium (Chloride) 100 mls @ 200 mls/hr IV ONETIME ONE Stop: 01/08/17 07:47 Last Admin: 01/08/17 10:04 Dose: 200 mls/hr Ampicillin Sodium 1 gm/ Sodium (Chloride) 50 mls @ 100 mls/hr IV Q4H ISABEL Last Admin: 01/11/17 04:54 Dose: Not Given Lactated Ringer's (Ringers, Lactated) 1,000 mls @ 150 mls/hr IV ASDIRECTED ISABEL Oxytocin/Lactated Ringer's (Pitocin In Lr 30 Units/500 Ml) 30 unit in 500 mls @ 999 mls/hr IV TITRATE ISABEL; 999 MUNITS/MIN PRN Reason: Protocol Stop: 01/08/17 08:01 Last Admin: 01/11/17 10:06 Dose: Not Given Dextrose/Sodium Chloride (Dextrose 5%-Normal Saline) 1,000 mls @ 100 mls/hr IV ASDIRECTED [facility] Dextrose/Lactated Ringer's (Dextrose 5%-Lactated Ringers) 1,000 mls @ 100 mls/ hr IV ASDIRECTED [facility] Last Admin: 01/10/17 14:01 Dose: 100 mls/hr Ropivacaine/Fentanyl/NS (Fentanyl 2 Mcg-Ropiv 0.2%-Ns) Confirm Administered Dose 100 mls @ as directed .ROUTE .STK-MED ONE Stop: 01/09/17 18:56 Last Admin: 01/11/17 10:08 Dose: Not Given Ropivacaine/Fentanyl/NS (Fentanyl 2 Mcg-Ropiv 0.2%-Ns) Confirm Administered Dose 100 mls @ as directed .ROUTE .STK-MED ONE Stop: 01/10/17 03:36 Last Admin: 01/11/17 04:51 Dose: Not Given Ropivacaine (Naropin 0.2%) Confirm Administered Dose 100 mls @ as directed .ROUTE .STK-MED ONE Stop: 01/10/17 13:30 Last Admin: 01/11/17 04:51 Dose: Not Given Sodium Chloride (Normal Saline) Confirm Administered Dose 20 mls @ as directed .ROUTE .STK-MED ONE Stop: 01/10/17 16:17 Nitroglycerin/Dextrose (Nitroglycerin 25 Mg/D5w 250 Ml) Confirm Administered Dose 25 mg in 250 mls @ as directed .ROUTE .STK-MED ONE Stop: 01/10/17 16:32 Ketorolac Tromethamine (Toradol) 30 mg IVPUSH Q6H ISABEL Stop: 01/11/17 18:16 Last Admin: 01/11/17 22:55 Dose: Not Given Misoprostol (Cytotec) 25 mcg VAG .ONCE ISABEL Last Admin: 01/08/17 09:40 Dose: 25 mcg Misoprostol (Cytotec) 25 mcg VAG Q4H PRN PRN Reason: Cervical Ripening Stop: 01/09/17 11:19 Last Admin: 01/09/17 12:28 Dose: 25 mcg Misoprostol (Cytotec) 25 mcg VAG Q4H ISABEL Misoprostol (Cytotec) 25 mcg VAG Q4H ISABEL Last Admin: 01/11/17 10:08 Dose: Not Given Misoprostol (Cytotec) 25 mcg VAG Q4H ISABEL Last Admin: 01/11/17 10:08 Dose: Not Given Morphine Sulfate (Duramorph Pf) Confirm Administered Dose 10 mg .ROUTE .STK-MED ONE Stop: 01/10/17 16:48 Nalbuphine HCl (Nubain) 10 mg IVPUSH Q1H PRN PRN Reason: Pain (severe 7-10) Stop: 01/08/17 09:19 Nalbuphine HCl (Nubain) 5 mg IVPUSH Q3H PRN PRN Reason: Pruritis Stop: 01/11/17 18:18 Naloxone HCl (Narcan) 0.1 mg IVPUSH ONETIME PRN PRN Reason: Respiratory Depression Stop: 01/11/17 18:18 Ondansetron HCl (Zofran) Confirm Administered Dose 4 mg .ROUTE .STK-MED ONE Stop: 01/10/17 16:14 Oxytocin (Pitocin) Confirm Administered Dose 20 unit .ROUTE .STK-MED ONE Stop: 01/10/17 16:14 Phenylephrine HCl (Phenylephrine In Ns 100 Mcg/Ml) Confirm Administered Dose 1 mg .ROUTE .STK-MED ONE Stop: 01/10/17 17:00 Ropivacaine (Naropin 0.2%) Confirm Administered Dose 20 ml .ROUTE .STK-MED ONE Stop: 01/09/17 18:57 Last Admin: 01/11/17 10:08 Dose: Not Given - Interaction Support Person: Sister - Recovery Exam Fundal Tone: Firm Fundal Level: At Umbilicus Fundal Placement: Midline Lochia Amount: Scant Lochia Color: Rubra/Red Perineum Description: Intact, Minimal Bruising/Swelling Other Perinuem Description: Vaginal laceration Episiotomy/Laceration: None Bladder Status: Voiding Urinary Elimination: Voided Other Urinary Elimination, : Due to void by 1100 - Exam General: alert, oriented Lungs: Normal respiratory effort Cardiovascular: Regular Rate, Regular Rhythm Abdomen: bowel sounds present, soft. No: CVA tenderness Extremities: no calf tenderness Wound/Incisions: healing well, drainage (small amount of serous). No: erythema Psy/Mental Status: alert, normal affect - Problem List & Annotations (1) delivery delivered SNOMED Code(s): 714657591 Code(s): O82 - ENCOUNTER FOR DELIVERY WITHOUT INDICATION Status: Acute Current Visit: Yes - Problem List Review Problem List Initiated/Reviewed/Updated: Yes - Assessment Assessment:: POD 2 status post Primary LTCS GDM--glucoses slightly elevated in 130-150s. Depression/anxiety. - Plan Plan:: Ambulate, may shower. Continue postoperative cares. Given elevated glucoses will resume metformin 750 XR daily Patient has been off effexor for almost a week and prefers to not resume with . She prefers to trial a SSRI, like sertraline. Will start this medication and monitor mood.
[2017-01-12] MEDS: Sertraline 50 MG Tab PO SCH (11:35)
[2017-01-12] MEDS: metFORMIN 500 MG Tab.ER PO SCH (17:37)
[2017-01-13] MEDS: Ibuprofen 800 MG Tab PO PRN ×2 (04:09→17:00)
--- NOTE | 2017-01-13 06:20 | OR ---
SURGEON: Deirdre Moreira DATE OF PROCEDURE: 01/10/2017 PREOPERATIVE HISTORY: This is a 31-year-old, G1, P0, presented to Labor and Delivery on January 08 for induction of labor at 38 weeks and 6 days for diabetes noted in and treated with insulin. The patient was also known to have gestational thrombocytopenia in addition to class 3 obesity with a BMI above 50. The patient's heart tracing was significant for category 1 status and the patient was not having any significant uterine activity on admission. The patient was given approximately at least 8 doses of vaginal Cytotec for cervical ripening, as the patient's cervix was closed, thick, and high at the time of admission. The patient eventually needed to 3 cm dilated, had underwent an amniotomy for meconium-stained amniotic fluid. IUPC and scalp electrode was placed. The patient's blood sugars remained euglycemic with the insulin drip. During the course of induction, the patient had mild to severe range hypertension without any symptoms and labs not supporting overt preeclampsia. The patient was also known to be very anxious and stated she was in pain the entire time the cervix was being ripened. The patient eventually did receive her epidural for analgesia during labor and the patient afterwards had normotensive blood pressures throughout. The patient of note also was on IV ampicillin for GBS positive. The patient eventually did progress to complete dilation and started maternal expulsive efforts. The patient pushed for 2 hours and then was evaluated by myself and it was in agreement that the patient was not pushing effectively. The patient was offered a vacuum assistance though it was told to the patient she did have to push even harder to effectively move the baby for vaginal delivery. Even with help, the patient did continue to say that she could not push the baby out and that she wanted a . The patient even with vacuum had poor maternal expulsive efforts for an ineffective vacuum delivery. After the third pop-off, it was decided to proceed with primary low transverse section for a failed vacuum and maternal exhaustion. PREOPERATIVE DIAGNOSES: 1. Intrauterine at 38 weeks and 6 days. 2. GBS positive. 3. A2 diabetes mellitus in . 4. Meconium-stained amniotic fluid. 5. Maternal exhaustion. 6. Failed vacuum. 7. Vaginal laceration secondary to placement of vacuum. 8. Active yeast under pannus. POSTOPERATIVE DIAGNOSES: 1. Intrauterine at 38 weeks and 6 days. 2. Delivery. 3. Vaginal laceration secondary to placement of vacuum. PROCEDURE PERFORMED: 1. Primary low transverse section. 2. Repair of vaginal laceration. ANESTHESIA TYPE: Redosed epidural. ESTIMATED BLOOD LOSS: 800 mL. IV FLUIDS: 2 L. URINE OUTPUT: 400 mL. BAG TURNER SURGEON: Breonna Black M.D. FINDINGS: Active yeast under the patient's pannus. Viable female infant in vertex presentation with score of 7 and 8 at 1 and 5 minutes respectively, and weight of 3540 g. Normal intact placenta with 3-vessel cord. Normal uterus, tubes, and ovaries palpated normally. Vaginal laceration from placement of the vacuum. COMPLICATIONS: None known other than difficulty in completing the secondary to a depth of maternal adipose tissue. DISPOSITION: Mom and tolerated the procedure well and was stable afterwards. DESCRIPTION OF PROCEDURE: The patient was taken to the operating room in her labor bed. Venodyne were placed in the OR and Venodyne were connected to the machine. The patient was placed in the dorsal lithotomy position in the [facility] with a leftward tilt. The patient was then prepped and of note, underneath pannus was prepped at least a minimum of two times in addition to prepping the belly secondary to the active yeast under the patient's pannus. After prepping, the patient was draped in a normal sterile fashion. A time-out was held. The patient was tested and redosed spinal, was noted to be good. The incision was made at above the patient's pannus to avoid her active intertriginal yeast . A Pfannenstiel skin incision was made with a scalpel blade and the adipose tissue was dissected down to the fascia with the scalpel. The fascia was incised in the midline and the fascia was extended laterally with the Webster scissors. The superior aspect of the fascial incision was grasped with the Nadine clamps, and elevated and the rectus muscles were dissected off bluntly, then sharply with the Bovie. Attention was turned to the inferior aspect of the same incision where the fascia was tented and the rectus muscles dissected off bluntly, then sharply with the Bovie. The peritoneum was entered with blunt dissection and with lateral stretching, the abdominal exposure was increased. The Andrei self- retaining retractor was placed in the patient's abdomen and set. The vesicouterine peritoneum was identified, entered sharply with the Metzenbaum scissors and the bladder flap was created digitally. A new scalpel blade was used to incise the lower uterine segment in a transverse fashion. The uterine incision was then extended in anterior-posterior direction to prevent lateral extension out to the uterine vessels. Secondary to the vertex being deep in the pelvis, the suction was broken, the vertex was brought out of the pelvis through the hysterotomy incision followed by the body. The body later came and was bulb suctioned at delivery. Cord was doubly clamped and cut and the was taken over to Dr. Frye who was waiting and the waiting baby nurse. Cord blood was collected and sent for analysis. The gases were not present on the table. IV Pitocin was given in a bolus fashion to help clamp the uterus down. The placenta was removed from the uterus manually and the uterus was cleared of all clots and debris. The first layer of the uterine incision was closed with 0 Vicryl suture in a running, locked fashion. A second layer of same suture was used for the imbricating layer. A non- hemostatic area on the uterus at the hysterotomy incision was oversewn with 0 Vicryl in a [id number] fashion. The ovaries were palpated bilaterally and noted to be normal. Secondary to patient's morbid obese status, it was difficult to elevate the adipose to actually directly visualize the ovaries and the tubes bilaterally. Afterwards, the Andrei self-retaining retractor was removed from the patient's abdomen after it was noted that there were no further bleeders. The rectus muscles and peritoneum were reapproximated with 0 Vicryl suture in a running mattress with an 0 Vicryl. The fascia was reapproximated on a looped PDS. The adipose tissue was reapproximated with 0 Vicryl suture on a CTX needle in two layers to prevent seroma or hematoma postoperatively. The skin was closed with tate. Afterwards, a Telfa pressure dressing and ABD was placed. After completing the abdominal surgery, attention was turned to patient's vagina where the vaginal laceration on the left vaginal sidewall was located and the area was made hemostatic with a 3-0 Vicryl suture in a figure-of - eight fashion. Afterwards, hemostasis was noted to be excellent. The patient's uterus was expressed and there was no excess bleeding, just normal lochia at this point. The patient was cleansed and bed was returned to functioning normal functioning status and the patient was taken down out of stirru. The patient was eventually moved to bed in awake and stable condition. The patient went to the postop recovery area in awake and stable condition. The patient tolerated the procedure well. Sponge, lap, needle, and instrument counts were correct on all counts. MIKE / CHELE /[id number] MTDD
[2017-01-13] MEDS: Nystatin Topical Powder 15 GM Bottle TOP SCH ×2 (06:21→13:15)
[2017-01-13] MEDS: Acetaminophen/oxyCODONE 325-5 MG Tab PO PRN ×2 (08:19→16:59)
[2017-01-13] MEDS: Docusate Sodium 100 MG Cap PO SCH (08:19)
[2017-01-13] MEDS: Sertraline 50 MG Tab PO SCH (08:19)
--- NOTE | 2017-01-13 09:01 | PCM.PNPP ---
- General Info Date of Service: 01/13/17 Functional Status: Reports: pain controlled, tolerating diet, ambulating, urinating - Review of Systems General: Reports: No Symptoms HEENT: Reports: no symptoms Pulmonary: Reports: no symptoms Cardiovascular: Reports: No Symptoms Gastrointestinal: Reports: No symptoms Genitourinary: Reports: no symptoms Musculoskeletal: Reports: no symptoms Skin: Reports: no symptoms Neurological: Reports: No Symptoms Psychiatric: Reports: no symptoms - General Info Date of Service: 01/13/17 - Patient Data Vital Signs - most recent: Last Vital Signs Temp 36.8 C 01/13/17 04:00 Pulse 88 01/13/17 04:00 Resp 17 01/13/17 04:00 BP 135/70 01/13/17 04:00 Pulse Ox 95 01/13/17 04:00 Weight - most recent: 130 kg Lab Results - last 24 hrs: Laboratory Results - last 24 hr 01/13/17 Range/Units 05:28 POC Glucose 91 (60-110) mg/dL Med Orders - Current: Current Medications Bisacodyl (Dulcolax) 10 mg RECTAL .ONCE PRN PRN Reason: Constipation Butorphanol Tartrate (Stadol) 1 mg IVPUSH Q1H PRN PRN Reason: Pain Last Admin: 01/09/17 17:58 Dose: 1 mg Diphenhydramine HCl (Benadryl) 25 mg IVPUSH Q6H PRN PRN Reason: Itching or Nausea Docusate Sodium (Colace) 100 mg PO BID ISABEL Last Admin: 01/13/17 08:19 Dose: 100 mg Emollient Ointment (Lansinoh Hpa) 0 gm TOP ASDIRECTED PRN PRN Reason: Sore Nipples Oxytocin/Lactated Ringer's (Pitocin In Lr 30 Units/500 Ml) 30 unit in 500 mls @ 2 mls/hr IV TITRATE ISABEL; 2 MUNITS/MIN PRN Reason: Protocol Last Titration: 01/10/17 02:16 Dose: 22 munits/min, 22 mls/hr Insulin Human Regular 100 unit (/ Sodium Chloride) 100 mls @ 0.5 mls/hr IV TITRATE ISABEL; 0.5 UNIT/HR PRN Reason: Protocol Last Titration: 01/10/17 11:19 Dose: 1 unit/hr, 1 mls/hr Sodium Chloride (Normal Saline) 1,000 mls @ 125 mls/hr IV ASDIRECTED [facility] Last Admin: 01/10/17 13:18 Dose: 125 mls/hr Lactated Ringer's (Ringers, Lactated) 1,000 mls @ 125 mls/hr IV ASDIRECTED [facility] Last Admin: 01/10/17 22:12 Dose: 125 mls/hr Ibuprofen (Motrin) 800 mg PO Q8H PRN PRN Reason: mild pain or fever Last Admin: 01/13/17 04:09 Dose: 800 mg Lidocaine HCl (Xylocaine 1%) 50 ml INJECT .ONCE PRN PRN Reason: Laceration repair Metformin HCl (Glucophage Xr) 500 mg PO WITHDINNER [facility] Last Admin: 01/12/17 17:37 Dose: 500 mg Methylergonovine Maleate (Methergine) 0.2 mg IM ASDIRECTED PRN PRN Reason: Post Hemorrhage Misoprostol (Cytotec) 200 mcg PO .ONCE PRN PRN Reason: Post Hemorrhage Nystatin (Nystop) 0 gm TOP TID [facility] Last Admin: 01/13/17 06:21 Dose: 1 applic Ondansetron HCl (Zofran) 8 mg IVPUSH Q4H PRN PRN Reason: Nausea/Vomiting Last Admin: 01/08/17 20:15 Dose: 8 mg Ondansetron HCl (Zofran) 4 mg IV Q4H PRN PRN Reason: Nausea/Vomiting Oxycodone/Acetaminophen (Percocet 325-5 Mg) 1 tab PO Q4H PRN PRN Reason: Pain (moderate 4-6) Last Admin: 01/12/17 16:35 Dose: 1 tab Oxycodone/Acetaminophen (Percocet 325-5 Mg) 2 tab PO Q4H PRN PRN Reason: Pain (moderate 4-6) Last Admin: 01/13/17 08:19 Dose: 2 tab Promethazine HCl (Phenergan) 25 mg IM Q4H PRN PRN Reason: Nausea/Vomiting Last Admin: 01/09/17 12:34 Dose: 25 mg Sertraline HCl (Zoloft) 50 mg PO DAILY [facility] Last Admin: 01/13/17 08:19 Dose: 50 mg Sodium Chloride (Saline Flush) 10 ml FLUSH ASDIRECTED PRN PRN Reason: Keep Vein Open Sodium Chloride (Saline Flush) 2.5 ml FLUSH ASDIRECTED PRN PRN Reason: Keep Vein Open Sterile Water (Sterile Water For Irrigation) 1,000 ml IRR ASDIRECTED PRN PRN Reason: delivery Terbutaline Sulfate (Brethine) 0.25 mg SUBCUT ASDIRECTED PRN PRN Reason: Tacysystole Discontinued Medications Acetaminophen (Tylenol Extra Strength) 1,000 mg PO ONETIME ONE Stop: 01/10/17 07:16 Last Admin: 01/10/17 07:19 Dose: 1,000 mg Bupivacaine HCl (Sensorcaine-Mpf 0.5%) Confirm Administered Dose 10 ml .ROUTE .STK-MED ONE Stop: 01/10/17 16:01 Last Admin: 01/11/17 04:51 Dose: Not Given Carboprost Tromethamine (Hemabate Ds) 250 mcg IM ASDIRECTED PRN PRN Reason: Post Hemorrhage Cefazolin Sodium (Ancef) Confirm Administered Dose 3 gm .ROUTE .STK-MED ONE Stop: 01/10/17 16:17 Diphenhydramine HCl (Benadryl) 25 mg IVPUSH Q4H PRN PRN Reason: Itching Stop: 01/11/17 18:18 Last Admin: 01/11/17 13:42 Dose: 25 mg Ephedrine Sulfate (Ephedrine Sulfate) Confirm Administered Dose 50 mg .ROUTE .STK-MED ONE Stop: 01/10/17 16:25 Fentanyl (Sublimaze) Confirm Administered Dose 100 mcg .ROUTE .STK-MED ONE Stop: 01/10/17 16:43 Glycopyrrolate () Confirm Administered Dose 1 mg .ROUTE .STK-MED ONE Stop: 01/10/17 16:25 Hydroxyzine Pamoate (Vistaril) 50 mg PO ONETIME ONE Stop: 01/09/17 15:19 Last Admin: 01/09/17 15:23 Dose: 50 mg Ampicillin Sodium 2 gm/ Sodium (Chloride) 100 mls @ 200 mls/hr IV ONETIME ONE Stop: 01/08/17 07:47 Last Admin: 01/08/17 10:04 Dose: 200 mls/hr Ampicillin Sodium 1 gm/ Sodium (Chloride) 50 mls @ 100 mls/hr IV Q4H [facility] Last Admin: 01/11/17 04:54 Dose: Not Given Lactated Ringer's (Ringers, Lactated) 1,000 mls @ 150 mls/hr IV ASDIRECTED ISABEL Oxytocin/Lactated Ringer's (Pitocin In Lr 30 Units/500 Ml) 30 unit in 500 mls @ 999 mls/hr IV TITRATE ISABEL; 999 MUNITS/MIN PRN Reason: Protocol Stop: 01/08/17 08:01 Last Admin: 01/11/17 10:06 Dose: Not Given Dextrose/Sodium Chloride (Dextrose 5%-Normal Saline) 1,000 mls @ 100 mls/hr IV ASDIRECTED ISABEL Dextrose/Lactated Ringer's (Dextrose 5%-Lactated Ringers) 1,000 mls @ 100 mls/ hr IV ASDIRECTED ISABEL Last Admin: 01/10/17 14:01 Dose: 100 mls/hr Ropivacaine/Fentanyl/NS (Fentanyl 2 Mcg-Ropiv 0.2%-Ns) Confirm Administered Dose 100 mls @ as directed .ROUTE .STK-MED ONE Stop: 01/09/17 18:56 Last Admin: 01/11/17 10:08 Dose: Not Given Ropivacaine/Fentanyl/NS (Fentanyl 2 Mcg-Ropiv 0.2%-Ns) Confirm Administered Dose 100 mls @ as directed .ROUTE .STK-MED ONE Stop: 01/10/17 03:36 Last Admin: 01/11/17 04:51 Dose: Not Given Ropivacaine (Naropin 0.2%) Confirm Administered Dose 100 mls @ as directed .ROUTE .STK-MED ONE Stop: 01/10/17 13:30 Last Admin: 01/11/17 04:51 Dose: Not Given Sodium Chloride (Normal Saline) Confirm Administered Dose 20 mls @ as directed .ROUTE .STK-MED ONE Stop: 01/10/17 16:17 Nitroglycerin/Dextrose (Nitroglycerin 25 Mg/D5w 250 Ml) Confirm Administered Dose 25 mg in 250 mls @ as directed .ROUTE .STK-MED ONE Stop: 01/10/17 16:32 Ketorolac Tromethamine (Toradol) 30 mg IVPUSH Q6H ISABEL Stop: 01/11/17 18:16 Last Admin: 01/11/17 22:55 Dose: Not Given Misoprostol (Cytotec) 25 mcg VAG .ONCE ISABEL Last Admin: 01/08/17 09:40 Dose: 25 mcg Misoprostol (Cytotec) 25 mcg VAG Q4H PRN PRN Reason: Cervical Ripening Stop: 01/09/17 11:19 Last Admin: 01/09/17 12:28 Dose: 25 mcg Misoprostol (Cytotec) 25 mcg VAG Q4H ISABEL Misoprostol (Cytotec) 25 mcg VAG Q4H ISABEL Last Admin: 01/11/17 10:08 Dose: Not Given Misoprostol (Cytotec) 25 mcg VAG Q4H [facility] Last Admin: 01/11/17 10:08 Dose: Not Given Morphine Sulfate (Duramorph Pf) Confirm Administered Dose 10 mg .ROUTE .STK-MED ONE Stop: 01/10/17 16:48 Nalbuphine HCl (Nubain) 10 mg IVPUSH Q1H PRN PRN Reason: Pain (severe 7-10) Stop: 01/08/17 09:19 Nalbuphine HCl (Nubain) 5 mg IVPUSH Q3H PRN PRN Reason: Pruritis Stop: 01/11/17 18:18 Naloxone HCl (Narcan) 0.1 mg IVPUSH ONETIME PRN PRN Reason: Respiratory Depression Stop: 01/11/17 18:18 Ondansetron HCl (Zofran) Confirm Administered Dose 4 mg .ROUTE .STK-MED ONE Stop: 01/10/17 16:14 Oxytocin (Pitocin) Confirm Administered Dose 20 unit .ROUTE .STK-MED ONE Stop: 01/10/17 16:14 Phenylephrine HCl (Phenylephrine In Ns 100 Mcg/Ml) Confirm Administered Dose 1 mg .ROUTE .STK-MED ONE Stop: 01/10/17 17:00 Ropivacaine (Naropin 0.2%) Confirm Administered Dose 20 ml .ROUTE .STK-MED ONE Stop: 01/09/17 18:57 Last Admin: 01/11/17 10:08 Dose: Not Given - Interaction Disposition, : to Nursery Infant Feeding: Attempted ; Nursed Fair/Poor Support Person: Sister - Recovery Exam Fundal Tone: Firm Fundal Level: At Umbilicus Fundal Placement: Midline Lochia Amount: Scant Lochia Color: Rubra/Red Perineum Description: Intact, Minimal Bruising/Swelling Other Perinuem Description: Vaginal laceration Episiotomy/Laceration: Approximated Bladder Status: Nonpalpable, Voiding Urinary Elimination: Voided Other Urinary Elimination, : Due to void by 1100 - Exam General: alert, oriented Neck: supple Lungs: Clear to auscultation, Normal respiratory effort Cardiovascular: Regular Rate, Regular Rhythm Abdomen: bowel sounds present, soft, no tenderness Extremities: no calf tenderness Skin: warm, dry, intact Wound/Incisions: healing well (draining serous fluid 2nd to edematous pannus) Neurological: no new focal deficit Psy/Mental Status: alert, normal affect, normal mood - Problem List & Annotations (1) Delivered by section SNOMED Code(s): 181108707 Code(s): O82 - ENCOUNTER FOR DELIVERY WITHOUT INDICATION Status: Acute Current Visit: Yes - Problem List Review Problem List Initiated/Reviewed/Updated: Yes - Assessment Assessment:: POD 3 status post Primary LTCS Doing well overall Incision with normal serous drainage 2nd to edematous pannus - Plan Plan:: Pelvic rest for 6wks Patient given instructions on cleaning under pannus and would cleaning Wound infeciton precautions given Bleeding precautions given Infection precautions given Thrombotic precautions given blues/depression precautions given
[2017-01-13 16:13] VITALS: BP 136/70
[2017-01-13] MEDS: metFORMIN 500 MG Tab.ER PO SCH (17:37)
== END 2017-01-13 18:17 | disposition home or self-care (01) | DRG 765 ==
LOC: MW.OB 07:07 → OBSVTOIN 01-10 16:41
PROVIDERS: ADMIT Obstetrics & Gynecology; ATTEND Obstetrics & Gynecology
PROC: 10D00Z1 Extraction of Products of Conception, Low, Open Approach (ICD-10-PCS; principal; 2017-01-10)
PROC: 3E0P7GC Introduction of Other Therapeutic Substance into Female Reproductive, Via Natural or Artificial Opening (ICD-10-PCS; 2017-01-10)
PROC: 0HQ9XZZ Repair Perineum Skin, External Approach (ICD-10-PCS; 2017-01-10)
PROC: 10907ZC Drainage of Amniotic Fluid, Therapeutic from Products of Conception, Via Natural or Artificial Opening (ICD-10-PCS; 2017-01-10)
DX: O24.424 Gestational diabetes mellitus in childbirth, insulin controlled (principal); O98.82 Other maternal infectious and parasitic diseases complicating childbirth; B37.89 Other sites of candidiasis; O99.12 Other diseases of the blood and blood-forming organs and certain disorders involving the immune mechanism complicating childbirth; Z68.43 Body mass index [BMI] 50.0-59.9, adult; O70.0 First degree perineal laceration during delivery; O75.81 Maternal exhaustion complicating labor and delivery; O66.5 Attempted application of vacuum extractor and forceps; O77.0 Labor and delivery complicated by meconium in amniotic fluid; O99.214 Obesity complicating childbirth; E66.01 Morbid (severe) obesity due to excess calories; Z22.330 Carrier of Group B streptococcus; Z37.0 Single live birth; Z3A.38 38 weeks gestation of pregnancy
CPT/HCPCS: 01967; 01968; 36410; 36415; 59025; 80048; 80053; 80305; 81003; 82962; 84112; 84550; 85025; 85027; 86850; 86900; 86901; 86920; 86921; 86922; 88307; A9270-GY; J0290; J0595; J0690; J1200; J1815-GY; J1885; J2270; J2405; J2550; J2590; J2795; J3010; J7030; J7040; J7042; J7050; J7120

== ENCOUNTER 2017-05-13 12:07 | Emergency (ER) | payer MEDICAID ==
[2017-05-13] MEDS ORDERED: Ketorolac 60 MG/2 ML SDV IM ONE (12:25)
--- NOTE | 2017-05-13 12:25 | EDM.PDOC ---
ED HPI GENERAL MEDICAL PROBLEM - General Chief Complaint: Lower Extremity Injury/Pain Stated Complaint: right knee pain Time Seen by Provider: 05/13/17 12:24 Source of Information: Reports: Patient - History of Present Illness INITIAL COMMENTS - FREE TEXT/NARRATIVE: HISTORY AND PHYSICAL: History of present illness: [Patient presents with right knee pain that began acutely last night she got out of a chair transfer her daughter fell upon springing up she heard a pop and has since been unable to bear weight due to the pain she rates 6 out of 10 worse with weightbearing S No fever nausea vomiting chills sweats ] Review of systems: As per history of present illness and below otherwise all systems reviewed and negative. Past medical history: As per history of present illness and as reviewed below otherwise noncontributory. Surgical history: As per history of present illness and as reviewed below otherwise noncontributory. Social history: No reported history of drug or alcohol abuse. Family history: As per history of present illness and as reviewed below otherwise noncontributory. Physical exam: HEENT: Atraumatic, normocephalic, pupils reactive, negative for conjunctival pallor or scleral icterus, mucous membranes moist, throat clear, neck supple, nontender, trachea midline. Lungs: Clear to auscultation, breath sounds equal bilaterally, chest nontender. Heart: S1S2, regular, negative for clicks, rubs, or JVD. Abdomen: Soft, nondistended, nontender. Negative for masses or hepatosplenomegaly. Negative for costovertebral tenderness. Pelvis: Stable nontender. Genitourinary: Deferred. Rectal: Deferred. Extremities: Atraumatic, negative for cords or calf pain. Neurovascular unremarkable. Neuro: Awake, alert, oriented. Cranial nerves II through XII unremarkable. Cerebellum unremarkable. Motor and sensory unremarkable throughout. Exam nonfocal. Right lower extremity hip and ankle are unaffected knee has a full range of passive motion somewhat limited exam due to pain with tendon and ligamentous structures appear intact there is some laxity to the lateral collateral as compared to the left knee however very limited exam due to pain. There is no redness warmth or ballooning of the patella no open lesion or bruising and higher limb is neurovascularly intact Diagnostics: []Right knee 3 views CBC uric acid CRP Therapeutics: []Toradol 60 IM Crutches Nonweightbearing Cataflam Follow-up with primary care as scheduled on the [place] follow-up 2 weeks as needed Impression: []Right knee pain Definitive disposition and diagnosis as appropriate pending reevaluation and review of above. 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: Psychiatric History: Reports: Suicide Attempt Endocrine/Metabolic History: Reports: Diabetes, Gestational, Diabetes, Type II Hematologic History: Reports: Other (See Below) Other Hematologic History: thrombocytopenia - Infectious Disease History Infectious Disease History: Reports: None - Past Surgical History GI Surgical History: Reports: Appendectomy, Cholecystectomy Social & Family History - Family History Family Medical History: Noncontributory Cardiac: Reports: Heart Murmur : Reports: Other (See Below) Other Family History: kidney disease Psychiatric: Reports: Autism Immunologic: Reports: Other (See Below) Other Immunologic Family History: Hepatitis C Oncologic: Reports: Colon - Tobacco Use Smoking Status *Q: Never Smoker Years of Tobacco use: 1 Packs/Tins Daily: 0.2 - Recreational Drug Use Recreational Drug Use: Yes Drug Use in Last 12 Months: Yes 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 ED EXAM, GENERAL - Physical Exam Exam: See Below Course - Vital Signs Last Recorded V/S: Last Vital Signs Temp 36.2 C 05/13/17 12:17 Pulse 77 05/13/17 12:17 Resp 16 05/13/17 12:17 BP 130/68 05/13/17 12:17 Pulse Ox 96 05/13/17 12:17 - Orders/Labs/Meds Orders: Active Orders 24 hr Category Date Time Status Knee 3V Rt [CR] Stat Exams 05/13/17 12:24 Taken Labs: Laboratory Tests 05/13/17 05/13/17 Range/Units 12:25 12:25 WBC 7.85 (4.0-11.0) K/uL RBC 4.45 (4.30-5.90) M/uL Hgb 12.0 (12.0-16.0) g/dL Hct 37.4 (36.0-46.0) % MCV 84.0 (80.0-98.0) fL MCH 27.0 (27.0-32.0) pg MCHC 32.1 (31.0-37.0) g/dL RDW Std Deviation 47.1 (28.0-62.0) fl RDW Coeff of Raúl 16 H (11.0-15.0) % Plt Count 168 (150-400) K/uL MPV 8.60 (7.40-12.00) fL Neut % (Auto) 72.9 (48.0-80.0) % Lymph % (Auto) 19.7 (16.0-40.0) % Eddy % (Auto) 6.1 (0.0-15.0) % Eos % (Auto) 1.0 (0.0-7.0) % Baso % (Auto) 0.3 (0.0-1.5) % Neut # (Auto) 5.7 (1.4-5.7) K/uL Lymph # (Auto) 1.6 (0.6-2.4) K/uL Eddy # (Auto) 0.5 (0.0-0.8) K/uL Eos # (Auto) 0.1 (0.0-0.7) K/uL Baso # (Auto) 0.0 (0.0-0.1) K/uL Nucleated RBC % 0.0 /100WBC Nucleated RBCs # 0 K/uL Uric Acid 4.0 (2.1-6.2) mg/dL C-Reactive Protein 0.50 (0.0-0.5) mg/dL Meds: Medications Discontinued Medications Generic Name Dose Route Start Last Admin Trade Name Freq PRN Reason Stop Dose Admin Ketorolac Tromethamine 60 mg 05/13/17 12:25 05/13/17 12:55 Toradol IM 05/13/17 12:26 60 mg ONETIME ONE Administration Departure - Departure Time of Disposition: 13:37 Disposition: Home, Self-Care 01 Condition: Good Clinical Impression: Knee pain - Discharge Information Referrals: Dick Elkins MD [Primary Care Provider] - Forms: ED Department Discharge Additional Instructions: Crutches Immobilizer Nonweightbearing Ice 20 minute intervals 3 times daily Cataflam 50 mg 3 times daily 10 days Follow-up with primary care as scheduled on the for reexamination if symptoms persist consider orthopedic follow-up, exam is somewhat limited due to pain today. Discussed as suggested orthopedic follow-up, as you're already scheduled cc work in 2 days reexamination after some symptomatic treatment nonweightbearing may improved symptomology for complete examination of the knee. [facility] - Orthopedic Clinic Professional Building [address] [place] [address], [address] [place] [address] my orthopedic The following information is given to patients seen in the emergency department who are being discharged to home. This information is to outline your options for follow-up care. We provide all patients seen in our emergency department with a follow-up referral. The need for follow-up, as well as the timing and circumstances, are variable depending upon the specifics of your emergency department visit. If you don't have a primary care physician on staff, we will provide you with a referral. We always advise you to contact your personal physician following an emergency department visit to inform them of the circumstance of the visit and for follow-up with them and/or the need for any referrals to a consulting specialist. The emergency department will also refer you to a specialist when appropriate. This referral assures that you have the opportunity for follow-up care with a specialist. All of these measure are taken in an effort to provide you with optimal care, which includes your follow-up. Under all circumstances we always encourage you to contact your private physician who remains a resource for coordinating your care. When calling for follow-up care, please make the office aware that this follow-up is from your recent emergency room visit. If for any reason you are refused follow-up, please contact the [facility] emergency department at and asked to speak to the emergency department charge nurse. - My Orders Last 24 Hours: My Active Orders 05/13/17 12:24 Knee 3V Rt [CR] Stat - Assessment/Plan Last 24 Hours: My Active Orders 05/13/17 12:24 Knee 3V Rt [CR] Stat
--- NOTE | 2017-05-13 14:03 | CR ---
EXAM DATE: 05/13/17 PATIENT'S AGE: 31 Patient: RYAN DAVIS Facility: [place], [place] Site . Site : 1985 Study: XRay Knee Right [id number] 1:22:43 PM Ordering Physician: Yuval Browne Final Report: INDICATION: Knee pain COMPARISON: none TECHNIQUE: Standing/supine AP and lateral views of the right knee as well as AP sunrise view. FINDINGS: The bones are anatomically aligned. There is no evidence of fracture, erosion or intrinsic bone lesion. The soft tissues appear normal. IMPRESSION: Negative right knee. Dictated by Gavino Joe MD @ May 13 2017 1:25PM (Electronic Signature) Report Signed by Proxy. MARII
[2017-05-13 14:19] VITALS: BP 149/71
== END 2017-05-13 14:26 | disposition home or self-care (01) ==
LOC: MW.ED 12:07
DX: M25.561 Pain in right knee (principal); Z79.899 Other long term (current) drug therapy
CPT/HCPCS: 36415; 73562; 84550; 85025; 86140; 96372; 99283; J1885; 99282

== ENCOUNTER 2018-09-04 19:07 | Emergency (ER) | payer MEDICAID ==
--- NOTE | 2018-09-04 19:28 | EDM.PDOC ---
ED HPI GENERAL MEDICAL PROBLEM - General Chief Complaint: Head Injury Stated Complaint: HIT HER HEAD IN A WATERSLIDE Time Seen by Provider: 09/04/18 19:25 Source of Information: Reports: Patient History Limitations: Reports: No Limitations - History of Present Illness INITIAL COMMENTS - FREE TEXT/NARRATIVE: HISTORY AND PHYSICAL: History of present illness: Patient is a 32-year-old female who presents to the emergency room with complaints of right-sided scalp/head pain. She states she was going down a water slide when she hit the right side of her head and left knee on the slide before going into the water. She states she did not lose consciousness. She states that her son who was sitting on her lap also hit his right shoulder. She would like to be evaluated along with her son for these injuries. She states she was able to ambulate without any difficulty although has some soft tissue pain of the left knee. Denies any visual changes, syncope/near syncope, diaphoresis. She denies any chest pain, shortness of breath, cough. Denies any GI or symptoms. Denies any chance of at this time. Review of systems: As per history of present illness and below otherwise all systems reviewed and negative. Past medical history: As per history of present illness and as reviewed below otherwise noncontributory. Surgical history: As per history of present illness and as reviewed below otherwise noncontributory. Social history: See social history for further information Family history: As per history of present illness and as reviewed below otherwise noncontributory. Physical exam: General: Well-developed and well-nourished 32-year-old female. Alert and oriented. Nontoxic appearing and in no acute distress. HEENT: Mild pain with palpation to the right upper scalp (in the hairline). No open skin, lacerations or abrasions noted. There is some mild soft tissue swelling which she states is tender with palpation. Otherwise is normocephalic, pupils equal and reactive bilaterally, negative for conjunctival pallor or scleral icterus, mucous membranes moist, TMs normal bilaterally, throat clear, neck supple, nontender, trachea midline. No drooling or trismus noted. No meningeal signs. No hot potato voice noted. Lungs: Clear to auscultation, breath sounds equal bilaterally, chest nontender. Heart: S1S2, regular rate and rhythm without overt murmur Abdomen: Soft, nondistended, nontender. Negative for masses or hepatosplenomegaly. Negative for costovertebral tenderness. Pelvis: Stable nontender. Genitourinary: Deferred. Rectal: Deferred. Skin: Intact, warm, dry. No lesions or rashes noted. Extremities: Moves all extremities per self without difficulty or deficits. She does have mild tenderness with palpation of the left lateral knee. No knee instability. No soft tissue swelling, abrasion or open skin noted. She is able to flex and extend at the knee that any difficulty. Strong pedal and pretibial pulse. She is negative for cords or calf pain. Neurovascular unremarkable. C-spine/back: No pinpoint vertebral tenderness upon palpation. No crepitus, step -offs or obvious deformities. She is ambulatory without any difficulty or deficits. She denies any numbness or tingling to her distal extremities. Denies any urinary or fecal incontinence. She is able to walk on her heels and toes without any problem. Neuro: Awake, alert, oriented. Cranial nerves II through XII unremarkable. Cerebellum unremarkable. Motor and sensory unremarkable throughout. Exam nonfocal. Notes: I did offer to do an x-ray of the left knee, she declines at this time. She denies any chance of , although is agreeable to an hCG U prior to receiving the CT of the head. Unremarkable head CT. Supportive care measures were reviewed and discussed. Voices understanding and is agreeable to plan of care. Denies any further questions or concerns at this time. Diagnostics: Head CT, hCG U Therapeutics: Tylenol Prescription: None Impression: Head Injury Left knee injury Plan: 1. Rest, ice, elevate the left knee as able. Please review and follow the head injury instructions that her printed in your packet and that we discussed. 2. You may use Tylenol and/or ibuprofen as needed for pain management. 3. Please follow-up with your primary caregiver. Return to the ED as needed and as discussed. Definitive disposition and diagnosis as appropriate pending reevaluation and review of above. head;left knee Pain Score (Numeric/FACES): 10 - Related Data Allergies Allergy/AdvReac Type Severity Reaction Status Date / Time No Known Allergies Allergy Verified 09/04/18 20:04 Home Meds: Home Meds metFORMIN HCl [Metformin ER Osmotic] 500 mg PO DAILY 07/17/17 [History] Escitalopram [Lexapro] 1 tab PO DAILY 09/04/18 [History] Past Medical History - Past Health History Medical/Surgical History: Denies Medical/Surgical History HEENT History: Reports: Impaired Vision Genitourinary History: Reports: None [employer]ER History: Reports: Neurological History: Reports: None Psychiatric History: Reports: Addiction, Anxiety, Depression, Suicide Attempt Endocrine/Metabolic History: Reports: Diabetes, Gestational, Diabetes, Type II Hematologic History: Reports: Other (See Below) Other Hematologic History: thrombocytopenia Immunologic History: Reports: None Oncologic (Cancer) History: Reports: None Dermatologic History: Reports: None - Infectious Disease History Infectious Disease History: Reports: None - Past Surgical History GI Surgical History: Reports: Appendectomy, Cholecystectomy Social & Family History - Family History Family Medical History: Noncontributory Cardiac: Reports: Heart Murmur : Reports: Other (See Below) Other Family History: kidney disease Psychiatric: Reports: Autism Immunologic: Reports: Other (See Below) Other Immunologic Family History: Hepatitis C Oncologic: Reports: Colon - Caffeine Use Caffeine Use: Reports: Coffee ED ROS GENERAL - Review of Systems Review Of Systems: ROS reveals no pertinent complaints other than HPI. ED EXAM, HEAD INJURY - Physical Exam Exam: See Below (See dictation) Course - Vital Signs Last Recorded V/S: Last Vital Signs Temp 98.1 F 09/04/18 19:30 Pulse 98 09/04/18 19:30 Resp 18 09/04/18 19:30 BP 139/61 09/04/18 19:30 Pulse Ox 97 09/04/18 19:30 - Orders/Labs/Meds Labs: Laboratory Tests 09/04/18 Range/Units 19:35 Urine HCG, Qual NEGATIVE (NEGATIVE) Meds: Medications Discontinued Medications Generic Name Dose Route Start Last Admin Trade Name Freq PRN Reason Stop Dose Admin Acetaminophen 1,000 mg 09/04/18 19:39 09/04/18 19:54 Tylenol Extra Strength PO 09/04/18 19:40 1,000 mg ONETIME ONE Administration Departure - Departure Time of Disposition: 20:43 Disposition: Home, Self-Care 01 Clinical Impression: Head injury Qualifiers: Encounter type: initial encounter Qualified Code(s): S09.90XA - Unspecified injury of head, initial encounter Left knee injury Qualifiers: Encounter type: initial encounter Qualified Code(s): S89.92XA - Unspecified injury of left lower leg, initial encounter - Discharge Information Instructions: Head Injury, Adult, [id number] Referrals: Dick Elkins MD [Primary Care Provider] - Forms: ED Department Discharge Additional Instructions: The following information is given to patients seen in the emergency department who are being discharged to home. This information is to outline your options for follow-up care. We provide all patients seen in our emergency department with a follow-up referral. The need for follow-up, as well as the timing and circumstances, are variable depending upon the specifics of your emergency department visit. If you don't have a primary care physician on staff, we will provide you with a referral. We always advise you to contact your personal physician following an emergency department visit to inform them of the circumstance of the visit and for follow-up with them and/or the need for any referrals to a consulting specialist. The emergency department will also refer you to a specialist when appropriate. This referral assures that you have the opportunity for follow-up care with a specialist. All of these measure are taken in an effort to provide you with optimal care, which includes your follow-up. Under all circumstances we always encourage you to contact your private physician who remains a resource for coordinating your care. When calling for follow-up care, please make the office aware that this follow-up is from your recent emergency room visit. If for any reason you are refused follow-up, please contact the [facility] Emergency Department at and asked to speak to the emergency department charge nurse. [facility] [address] [place] [id number] [address] 1. Rest, ice, elevate the left knee as able. Please review and follow the head injury instructions that her printed in your packet and that we discussed. 2. You may use Tylenol and/or ibuprofen as needed for pain management. 3. Please follow-up with your primary caregiver. Return to the ED as needed and as discussed.
[2018-09-04] MEDS ORDERED: Acetaminophen 500 MG Tab PO ONE (19:39)
--- NOTE | 2018-09-04 20:42 | CT ---
INDICATION: Head injury with pain TECHNIQUE: CT head without contrast. COMPARISON: None FINDINGS: CSF spaces: Within normal limits for age. Brain parenchyma: The tanner-white differentiation is normal. No sign of mass, hemorrhage, or midline shift. Skull base and calvarium: The visualized paranasal sinuses and mastoid air cells demonstrate no acute or significant findings. The visualized orbits are grossly unremarkable. No skull fractures. IMPRESSION: Unremarkable noncontrast head CT. Please note that all CT scans at this facility use dose modulation, iterative reconstruction, and/or weight-based dosing when appropriate to reduce radiation dose to as low as reasonably achievable. Dictated by Shirley Morgan MD @ Sep 04 2018 8:37PM Signed by Dr. Shirley Morgan @ Sep 04 2018 8:39PM
[2018-09-04 21:00] VITALS: BP 116/79
== END 2018-09-04 20:50 | disposition home or self-care (01) ==
LOC: MW.ED 19:07
DX: S09.90XA Unspecified injury of head, initial encounter (principal); S89.92XA Unspecified injury of left lower leg, initial encounter; R51 Headache; E11.9 Type 2 diabetes mellitus without complications; F41.9 Anxiety disorder, unspecified; F32.9 Major depressive disorder, single episode, unspecified; Z79.84 Long term (current) use of oral hypoglycemic drugs; Z79.899 Other long term (current) drug therapy; W22.8XXA Striking against or struck by other objects, initial encounter
CPT/HCPCS: 70450; 81025; 99284; A9270; 99283

== ENCOUNTER 2019-01-27 15:22 | Emergency (ER) | payer MEDICAID, SELFPAY ==
[2019-01-27] MEDS ORDERED: Erythromycin Base 0.5% Ophth Oint 1 GM Tube EYEBOTH ONE (15:35)
--- NOTE | 2019-01-27 15:35 | EDM.PDOC ---
ED HPI GENERAL MEDICAL PROBLEM - General Chief Complaint: General Stated Complaint: MEDICAL CLEARANCE Time Seen by Provider: 01/27/19 15:28 Source of Information: Reports: Patient History Limitations: Reports: No Limitations - History of Present Illness INITIAL COMMENTS - FREE TEXT/NARRATIVE: HISTORY AND PHYSICAL: History of present illness: Patient is a 33-year-old female who presents to the emergency room by law enforcement for medical clearance. Patient states she does have a past history of drug abuse and has not taken anything in several days. She currently offers no complaints or concerns other than some irritation of the right eye. She states she was rubbing it this morning and felt like she scratched it. Patient denies any fever, chills, headache, change in vision, syncope or near syncope. Denies any chest pain, back pain, shortness of breath or cough. Denies any abdominal pain, nausea, vomiting, diarrhea, constipation or dysuria. Has not noted any blood in urine or stool. Patient has been eating and drinking appropriately. Review of systems: As per history of present illness and below otherwise all systems reviewed and negative. Past medical history: As per history of present illness and as reviewed below otherwise noncontributory. Surgical history: As per history of present illness and as reviewed below otherwise noncontributory. Social history: See social history for further information Family history: As per history of present illness and as reviewed below otherwise noncontributory. Physical exam: General: Well-developed and well-nourished 33-year-old female. Alert and oriented. Nontoxic appearing and in no acute distress. HEENT: Atraumatic, normocephalic, pupils equal and reactive bilaterally, negative for conjunctival pallor or scleral icterus, mucous membranes moist, small corneal abrasion noted to the 9 o'clock position on the right eye, trachea midline. No drooling or trismus noted. No meningeal signs. No hot potato voice noted. Lungs: Clear to auscultation, breath sounds equal bilaterally, chest nontender. Heart: S1S2, regular rate and rhythm without overt murmur Abdomen: Soft, nondistended, nontender. Negative for masses or hepatosplenomegaly. Negative for costovertebral tenderness. Skin: Intact, warm, dry. No lesions or rashes noted. Extremities: Atraumatic, moves all extremities per self without difficulty or deficits, negative for cords or calf pain. Neurovascular unremarkable. Neuro: Awake, alert, oriented. Cranial nerves II through XII unremarkable. Cerebellum unremarkable. Motor and sensory unremarkable throughout. Exam nonfocal. Notes: Erythromycin ointment and given here. Vital signs are stable. Patient will be discharged into custody of law enforcement. Supportive care measures were reviewed and discussed. Voices understanding and is agreeable to plan of care. Denies any further questions or concerns at this time. Diagnostics: Bedside Glucose Therapeutics: Erythromycin ointment Prescription: None Impression: Corneal abrasion, right eye Encounter for medical screening exam Plan: 1. Use the erythromycin ointment 3 times a day in the right eye 5 days. 2. Tylenol and/or ibuprofen as needed for pain management. 3. Follow-up with primary care as needed and as discussed. Return to the ED as needed and as discussed. Definitive disposition and diagnosis as appropriate pending reevaluation and review of above. Onset: Today - Related Data Allergies Allergy/AdvReac Type Severity Reaction Status Date / Time No Known Allergies Allergy Verified 01/27/19 15:36 Home Meds: Home Meds metFORMIN HCl [Metformin ER Osmotic] 500 mg PO DAILY 01/13/17 [History] Escitalopram [Lexapro] 1 tab PO DAILY 09/04/18 [History] busPIRone [Buspar] 01/27/19 [History] Past Medical History - Past Health History Medical/Surgical History: Denies Medical/Surgical History HEENT History: Reports: Impaired Vision Genitourinary History: Reports: None [employer] History: Reports: Neurological History: Reports: None Psychiatric History: Reports: Addiction, Anxiety, Depression, Suicide Attempt Endocrine/Metabolic History: Reports: Diabetes, Gestational, Diabetes, Type II Hematologic History: Reports: Other (See Below) Other Hematologic History: thrombocytopenia Immunologic History: Reports: None Oncologic (Cancer) History: Reports: None Dermatologic History: Reports: None - Infectious Disease History Infectious Disease History: Reports: None - Past Surgical History GI Surgical History: Reports: Appendectomy, Cholecystectomy Social & Family History - Family History Family Medical History: Noncontributory Cardiac: Reports: Heart Murmur : Reports: Other (See Below) Other Family History: kidney disease Psychiatric: Reports: Autism Immunologic: Reports: Other (See Below) Other Immunologic Family History: Hepatitis C Oncologic: Reports: Colon - Caffeine Use Caffeine Use: Reports: Coffee ED ROS GENERAL - Review of Systems Review Of Systems: ROS reveals no pertinent complaints other than HPI. ED EXAM, GENERAL - Physical Exam Exam: See Below (See dictation) Course - Vital Signs Last Recorded V/S: Last Vital Signs Temp 97.5 F 01/27/19 15:33 Pulse 110 H 01/27/19 15:33 Resp 18 01/27/19 15:33 BP 148/82 H 01/27/19 15:33 Pulse Ox 96 01/27/19 15:33 - Orders/Labs/Meds Meds: Medications Discontinued Medications Generic Name Dose Route Start Last Admin Trade Name Freq PRN Reason Stop Dose Admin Erythromycin 1 gm 01/27/19 15:35 01/27/19 15:39 Erythromycin 0.5% Ophth Oint EYEBOTH 01/27/19 15:36 1 applic ONETIME ONE Administration Departure - Departure Time of Disposition: 15:38 Disposition: Home, Self-Care 01 Clinical Impression: Encounter for medical screening examination Corneal abrasion, right Qualifiers: Encounter type: initial encounter Qualified Code(s): S05.01XA - Injury of conjunctiva and corneal abrasion without foreign body, right eye, initial encounter - Discharge Information Instructions: Corneal Abrasion, [id number] Referrals: PCP,None [Primary Care Provider] - Forms: ED Department Discharge Additional Instructions: The following information is given to patients seen in the emergency department who are being discharged to home. This information is to outline your options for follow-up care. We provide all patients seen in our emergency department with a follow-up referral. The need for follow-up, as well as the timing and circumstances, are variable depending upon the specifics of your emergency department visit. If you don't have a primary care physician on staff, we will provide you with a referral. We always advise you to contact your personal physician following an emergency department visit to inform them of the circumstance of the visit and for follow-up with them and/or the need for any referrals to a consulting specialist. The emergency department will also refer you to a specialist when appropriate. This referral assures that you have the opportunity for follow-up care with a specialist. All of these measure are taken in an effort to provide you with optimal care, which includes your follow-up. Under all circumstances we always encourage you to contact your private physician who remains a resource for coordinating your care. When calling for follow-up care, please make the office aware that this follow-up is from your recent emergency room visit. If for any reason you are refused follow-up, please contact the [facility] Emergency Department at and asked to speak to the emergency department charge nurse. [facility] [address] [place] [id number] [facility] [address] [place] [id number] 1. Use the erythromycin ointment 3 times a day in the right eye 5 days. 2. Tylenol and/or ibuprofen as needed for pain management. 3. Follow-up with primary care as needed and as discussed. Return to the ED as needed and as discussed.
[2019-01-27 16:03] VITALS: BP 148/82; PULSE 110
== END 2019-01-27 16:00 | disposition home or self-care (01) ==
LOC: MW.ED 15:22
DX: S05.01XA Injury of conjunctiva and corneal abrasion without foreign body, right eye, initial encounter (principal); F41.9 Anxiety disorder, unspecified; F32.9 Major depressive disorder, single episode, unspecified; E11.9 Type 2 diabetes mellitus without complications; Z79.899 Other long term (current) drug therapy; Z79.84 Long term (current) use of oral hypoglycemic drugs; Z90.49 Acquired absence of other specified parts of digestive tract; X58.XXXA Exposure to other specified factors, initial encounter
CPT/HCPCS: 82962; 99283; A9270; 99282

== ENCOUNTER 2020-01-21 22:59 | Emergency (ER) | payer MEDICAID ==
[2020-01-21] MEDS ORDERED: Sulfamethoxazole/Trimethoprim 800-160 MG Tab PO ONE (23:14)
--- NOTE | 2020-01-21 23:14 | EDM.PDOC ---
ED HPI GENERAL MEDICAL PROBLEM - General Time Seen by Provider: 01/21/20 23:17 - History of Present Illness INITIAL COMMENTS - FREE TEXT/NARRATIVE: History of present illness: [] Patient has redness tenderness and warmth around injection site in right antecubital fossa. She self injects medication. Patient has no systemic signs of illness. She has no fever chills or weakness. She has no nausea or vomiting. Patient denies . The pain is moderately severe and worse with movement of the arm Review of systems: As per history of present illness and below otherwise all systems reviewed and negative. Past medical history: As per history of present illness and as reviewed below otherwise noncontributory. Surgical history: As per history of present illness and as reviewed below otherwise noncontributory. Social history: No reported history of drug or alcohol abuse. Family history: As per history of present illness and as reviewed below otherwise noncontributory. Physical exam: Constitutional - well developed, well-nourished and in no acute distress HEENT - normocephalic, no evidence of trauma - external nose and mouth normal - no mass in neck and no JVD - mucosae moist EYES - full EOM, PERRL, no icterus - no evidence of inflammation, injection, or drainage Respiratory - no respiratory distress, equal bilateral expansion, lungs clear to auscultation and no abnormal lung sounds Cardiovascular - Regular Rhythm with S1 and S2 appreciated and no murmur, gallop or rub. GI - abdomen soft without distension or organomegaly - normal bowel sounds - no guard or rebound Musculoskeletal no gross deformity of long bones or joints - no tenderness, swelling or edema Neurologic - Alert and oriented times four - CN II-XII grossly intact - motor sensory and coordination symmetrically normal Psychiatric - appropriate mood and affect with normal thought content Hematologic - No petechiae or purpura - mucosa appropriate color and sclera not pale - normal nail bed color and refill Integument -there is a tender soft boggy spot on the antecubital fossa on the ulnar side. It is warm. There is no fluctuant mass. This no rash or evidence of trauma - normal turgor Diagnostics: [] Therapeutics: [] Impression: [] Plan: [] Definitive disposition and diagnosis as appropriate pending reevaluation and review of above. Right Arm Pain Score (Numeric/FACES): 6 - Related Data Allergies Allergy/AdvReac Type Severity Reaction Status Date / Time No Known Allergies Allergy Verified 01/21/20 23:12 Home Meds: Home Meds ARIPiprazole [Abilify] 15 mg PO DAILY 01/21/20 [History] Benztropine [Cogentin] 1 mg PO DAILY 01/21/20 [History] Sulfamethoxazole/Trimethoprim [Bactrim Ds Tablet] 1 each PO BID #20 tablet 01/21/20 [Rx] Past Medical History - Past Health History Medical/Surgical History: Denies Medical/Surgical History HEENT History: Reports: Impaired Vision Genitourinary History: Reports: None [employer] History: Reports: Neurological History: Reports: None Psychiatric History: Reports: Addiction, Anxiety, Depression, Suicide Attempt Endocrine/Metabolic History: Reports: Diabetes, Gestational, Diabetes, Type II Hematologic History: Reports: Other (See Below) Other Hematologic History: thrombocytopenia Immunologic History: Reports: None Oncologic (Cancer) History: Reports: None Dermatologic History: Reports: None - Infectious Disease History Infectious Disease History: Reports: None - Past Surgical History GI Surgical History: Reports: Appendectomy, Cholecystectomy Social & Family History - Family History Family Medical History: Noncontributory Cardiac: Reports: Heart Murmur : Reports: Other (See Below) Other Family History: kidney disease Psychiatric: Reports: Autism Immunologic: Reports: Other (See Below) Other Immunologic Family History: Hepatitis C Oncologic: Reports: Colon - Caffeine Use Caffeine Use: Reports: Coffee ED ROS GENERAL - Review of Systems Review Of Systems: Comprehensive ROS is negative, except as noted in HPI. ED EXAM, GENERAL - Physical Exam Exam: See Below Free Text/Narrative:: Physical exam as in the HPI Course - Vital Signs Last Recorded V/S: Last Vital Signs Temp 98.7 F 01/21/20 23:04 Pulse 84 01/21/20 23:04 Resp 16 01/21/20 23:04 BP 118/75 01/21/20 23:04 Pulse Ox 98 01/21/20 23:04 - Orders/Labs/Meds Meds: Medications Discontinued Medications Generic Name Dose Route Start Last Admin Trade Name Freq PRN Reason Stop Dose Admin Trimethoprim/Sulfamethoxazole 1 tab 01/21/20 23:14 01/21/20 23:36 Septra Ds PO 01/21/20 23:15 1 tab ONETIME ONE Administration Departure - Departure Time of Disposition: 23:38 Disposition: Home, Self-Care 01 Condition: Good Clinical Impression: Cellulitis - Discharge Information Prescriptions: Sulfamethoxazole/Trimethoprim [Bactrim Ds Tablet] 1 each PO BID #20 tablet Instructions: Cellulitis, Adult, [id number] Referrals: Dick Elkins MD [Primary Care Provider] - Additional Instructions: The following information is given to patients seen in the emergency department who are being discharged to home. This information is to outline your options for follow-up care. We provide all patients seen in our emergency department with a follow-up referral. The need for follow-up, as well as the timing and circumstances, are variable depending upon the specifics of your emergency department visit. If you don't have a primary care physician on staff, we will provide you with a referral. We always advise you to contact your personal physician following an emergency department visit to inform them of the circumstance of the visit and for follow-up with them and/or the need for any referrals to a consulting specialist. The emergency department will also refer you to a specialist when appropriate. This referral assures that you have the opportunity for follow-up care with a specialist. All of these measure are taken in an effort to provide you with optimal care, which includes your follow-up. Under all circumstances we always encourage you to contact your private physician who remains a resource for coordinating your care. When calling for follow-up care, please make the office aware that this follow-up is from your recent emergency room visit. If for any reason you are refused follow-up, please contact the Emergency Department at and asked to speak to the emergency department charge nurse. [facility] - Primary Care [address] [place] [address] [id number] [address] [address] Sepsis Event Note (ED) - Focused Exam Vital Signs: Vital Signs Temp Pulse Resp BP Pulse Ox 01/21/20 23:04 98.7 F 84 16 118/75 98
[2020-01-21 23:49] VITALS: BP 118/75; PULSE 84
== END 2020-01-21 23:45 | disposition home or self-care (01) ==
LOC: MW.ED 22:59
DX: L03.113 Cellulitis of right upper limb (principal); F41.9 Anxiety disorder, unspecified; F32.9 Major depressive disorder, single episode, unspecified; Z79.899 Other long term (current) drug therapy
CPT/HCPCS: 99283; A9270; 99282

== ENCOUNTER 2020-02-12 11:18 | Emergency (ER) | payer MEDICAID ==
[2020-02-12] MEDS ORDERED: Sodium Chloride 0.9% 1,000 ML IV ONE (11:53)
[2020-02-12] MEDS ORDERED: cefTRIAXone 1 GM in Premix Bag 1 BAG IV ONE (11:54)
--- NOTE | 2020-02-12 12:29 | CR ---
Left elbow: 2 views of the left elbow were obtained. Comparison: No previous elbow study. Soft tissue swelling is identified. Joint spaces are maintained. No fracture or other abnormality is appreciated. Impression: 1. Soft tissue swelling. 2. No fracture or dislocation is seen. Diagnostic code #2 Study was dictated in MDT
[2020-02-12 13:39] LABS: BLOOD UREA NITROGEN,BUN 6 mg/dL (7.0-18.0); CARBON DIOXIDE,CO2 23.2 mmol/L (21.0-32.0); CHLORIDE,CL 99 mmol/L (98-107); GLUCOSE RANDOM 168 mg/dL (74-106); POTASSIUM,K 4.2 mmol/L (3.5-5.1); SODIUM,NA 132 mmol/L (136-145)
[2020-02-12 14:35] VITALS: PULSE 80
--- NOTE | 2020-02-12 14:41 | EDM.PDOC ---
ED HPI GENERAL MEDICAL PROBLEM - General Chief Complaint: Upper Extremity Injury/Pain Stated Complaint: CANNOT BEND ARM; SWOLLEN Time Seen by Provider: 02/12/20 11:36 Source of Information: Reports: Patient History Limitations: Reports: No Limitations - History of Present Illness INITIAL COMMENTS - FREE TEXT/NARRATIVE: HISTORY AND PHYSICAL: History of present illness: Patient is a 34-year-old female who presents the ED today with concern of infection of her left antecubital area. Patient states that she injects methamphetamine daily and starting 2 days ago started noticing redness of her left antecubital area. Patient states she has continued to inject into this area despite the redness. Patient states she last used methamphetamine yesterday. Patient states today she noticed the redness spreading so came to the ED to be evaluated. Patient denies any body aches or fever. Patient states she does have pain and swelling of the area but denies any other associated symptoms. Patient denies fever, chills, chest pain, shortness of breath, or cough. Denies headache, neck stiff ness, change in vision, syncope, or near syncope. Denies nausea, vomiting, abdominal pain, diarrhea, constipation, or dysuria. Has not noted any blood in urine or stool. Patient has been eating and drinking appropriately. Review of systems: As per history of present illness and below otherwise all systems reviewed and negative. Past medical history: As per history of present illness and as reviewed below otherwise noncontributory. Surgical history: As per history of present illness and as reviewed below otherwise noncontributory. Social history: See social history for further information Family history: As per history of present illness and as reviewed below otherwise n oncontributory. Physical exam: General: Patient is alert, oriented, and in no acute distress. Patient sitting comfortably on exam table. HEENT: Atraumatic, normocephalic, pupils equal and reactive bilaterally, negative for conjunctival pallor or scleral icterus, mucous membranes moist, TMs normal bilaterally, throat clear, neck supple, nontender, trachea midline. No drooling or trismus noted. No meningeal signs. No hot potato voice noted. Lungs: Clear to auscultation, breath sounds equal bilaterally, chest nontender. Heart: S1S2, regular rate and rhythm without overt murmur Abdomen: Soft, nondistended, nontender. Negative for masses or hepatosplenomegaly. Negative for costovertebral tenderness. Pelvis: Stable nontender. Genitourinary: Deferred. Rectal: Deferred. Skin: Intact, warm, dry. No lesions or rashes noted. Extremities: There is a 7 cm circular area of erythema and edema of the left antecubital area with track gatica of the left antecubital. The right antecubital also has multiple track laura areas along with bruising. Patient has full range of motion of complete bilateral upper extremities without pain or difficulty. Radial pulses grossly intact bilaterally with capillary refill less than 2 seconds. Otherwise, atraumatic, negative for cords or calf pain. Neurovascular unremarkable. Neuro: Awake, alert, oriented. Cranial nerves II through XII unremarkable. Cerebellum unremarkable. Motor and sensory unremarkable throughout. Exam nonfocal. Notes: The area of erythema was outlined using a surgical marker. Signs and symptoms that would prompt return to the ED were thoroughly discussed with patient. Discussed returning to the ED in 24 hours for reevaluation of infection. Discussed with patient to keep an eye on the area of redness. This area was outlined so instructed patient that if this spreads beyond this, she needs to return back to the ED. Voices understanding and is agreeable to plan of care. Denies any further questions or concerns at this time. Diagnostics: CBC, CMP, blood cultures x2, lactate, left elbow x-ray Therapeutics: Rocephin IV Prescription: Bactrim DS Impression: Left antecubital cellulitis Plan: 1. Take medication as prescribed. You can alternate ibuprofen and Tylenol as directed for pain and discomfort. 2. Return to the ED in 24 hours for reevaluation of infection as discussed. Continue to monitor for spreading infection as discussed. 3. Return to the ED as needed and as discussed. Definitive disposition and diagnosis as appropriate pending reevaluation and review of above. Left Arm Pain Score (Numeric/FACES): 10 - Related Data Allergies Allergy/AdvReac Type Severity Reaction Status Date / Time No Known Allergies Allergy Verified 02/12/20 11:37 Home Meds: Home Meds ARIPiprazole [Abilify] 15 mg PO DAILY 01/21/20 [History] Benztropine [Cogentin] 1 mg PO DAILY 01/21/20 [History] Sulfamethoxazole/Trimethoprim [Bactrim Ds Tablet] 1 each PO BID #20 tablet 01/21/20 [Rx] Sulfamethoxazole/Trimethoprim [Bactrim Ds Tablet] 1 each PO BID 10 Days #20 tablet 02/12/20 [Rx] Past Medical History - Past Health History Medical/Surgical History: Denies Medical/Surgical History HEENT History: Reports: Impaired Vision Genitourinary History: Reports: None [employer] History: Reports: Neurological History: Reports: None Psychiatric History: Reports: Addiction, Anxiety, Depression, Suicide Attempt, Other (See Below) Other Psychiatric History: substance abuse Endocrine/Metabolic History: Reports: Diabetes, Gestational, Diabetes, Type II, Obesity/BMI 30+ Hematologic History: Reports: Other (See Below) Other Hematologic History: thrombocytopenia Immunologic History: Reports: None Oncologic (Cancer) History: Reports: None Dermatologic History: Reports: None - Infectious Disease History Infectious Disease History: Reports: Chicken Pox - Past Surgical History GI Surgical History: Reports: Appendectomy, Cholecystectomy Social & Family History - Family History Family Medical History: Noncontributory Cardiac: Reports: Heart Murmur : Reports: Other (See Below) Other Family History: kidney disease Psychiatric: Reports: Autism Immunologic: Reports: Other (See Below) Other Immunologic Family History: Hepatitis C Oncologic: Reports: Colon - Caffeine Use Caffeine Use: Reports: Soda - Recreational Drug Use Recreational Drug Type: Reports: Methamphetamine, Vicodin, Other (see below) Other Recreational Drug Type: muscle relaxers Review of Systems - Review of Systems Review Of Systems: Comprehensive ROS is negative, except as noted in HPI. ED EXAM, GENERAL - Physical Exam Exam: See Below (See dictation) Course - Vital Signs Last Recorded V/S: Last Vital Signs Temp 97.9 F 02/12/20 11:38 Pulse 80 02/12/20 14:34 Resp 20 02/12/20 14:34 BP 104/57 L 02/12/20 14:34 Pulse Ox 96 02/12/20 14:34 - Orders/Labs/Meds Orders: Active Orders 24 hr Category Date Time Status CULTURE BLOOD [BC] Stat Lab 02/12/20 12:30 Results CULTURE BLOOD [BC] Stat Lab 02/12/20 12:57 Results Blood Culture x2 Reflex Set [OM.PC] Stat Oth 02/12/20 11:54 Ordered Labs: Laboratory Tests 02/12/20 02/12/20 02/12/20 Range/Units 12:57 12:57 12:57 WBC 10.75 (4.0-11.0) K/uL RBC 4.36 (4.30-5.90) M/uL Hgb 13.8 (12.0-16.0) g/dL Hct 40.0 (36.0-46.0) % MCV 91.7 (80.0-98.0) fL MCH 31.7 (27.0-32.0) pg MCHC 34.5 (31.0-37.0) g/dL RDW Std Deviation 44.0 (28.0-62.0) fl RDW Coeff of Raúl 13 (11.0-15.0) % Plt Count 122 L (150-400) K/uL MPV 8.70 (7.40-12.00) fL Neut % (Auto) 74.5 (48.0-80.0) % Lymph % (Auto) 17.8 (16.0-40.0) % Dare % (Auto) 7.3 (0.0-15.0) % Eos % (Auto) 0.2 (0.0-7.0) % Baso % (Auto) 0.2 (0.0-1.5) % Neut # (Auto) 8.0 H (1.4-5.7) K/uL Lymph # (Auto) 1.9 (0.6-2.4) K/uL Dare # (Auto) 0.8 (0.0-0.8) K/uL Eos # (Auto) 0.0 (0.0-0.7) K/uL Baso # (Auto) 0.0 (0.0-0.1) K/uL Nucleated RBC % 0.0 /100WBC Nucleated RBCs # 0 K/uL Lactate 1.4 (0.20-2.00) mmol/L Sodium 132 L (136-145) mmol/L Potassium 4.2 (3.5-5.1) mmol/L Chloride 99 (98-107) mmol/L Carbon Dioxide 23.2 (21.0-32.0) mmol/L BUN 6 L (7.0-18.0) mg/dL Creatinine 0.9 (0.6-1.0) mg/dL Est Cr Clr Drug Dosing 69.66 mL/min Estimated GFR (MDRD) > 60.0 ml/min Glucose 168 H (74-106) mg/dL Calcium 8.3 L (8.5-10.1) mg/dL Total Bilirubin 0.9 (0.2-1.0) mg/dL AST 19 (15-37) IU/L ALT 47 (14-63) IU/L Alkaline Phosphatase 98 (46-116) U/L Total Protein 8.1 (6.4-8.2) g/dL Albumin 3.8 (3.4-5.0) g/dL Globulin 4.3 H (2.6-4.0) g/dL Albumin/Globulin Ratio 0.9 (0.9-1.6) Meds: Medications Discontinued Medications Generic Name Dose Route Start Last Admin Trade Name Elisha PRN Reason Stop Dose Admin Sodium Chloride 1,000 mls @ 999 mls/hr 02/12/20 11:53 02/12/20 12:16 Normal Saline IV 02/12/20 12:53 999 mls/hr BOLUS ONE Administration Ceftriaxone Sodium/Dextrose 1 50 mls @ 100 mls/hr 02/12/20 11:54 02/12/20 13:07 gm/ Premix IV 02/12/20 12:23 100 mls/hr ONETIME ONE Administration Departure - Departure Time of Disposition: 14:41 Disposition: Home, Self-Care 01 Clinical Impression: Cellulitis of antecubital fossa - Discharge Information Prescriptions: Sulfamethoxazole/Trimethoprim [Bactrim Ds Tablet] 1 each PO BID 10 Days #20 tablet Referrals: Dick Elkins MD [Primary Care Provider] - Additional Instructions: The following information is given to patients seen in the emergency department who are being discharged to home. This information is to outline your options for follow-up care. We provide all patients seen in our emergency department with a follow-up referral. The need for follow-up, as well as the timing and circumstances, are variable depending upon the specifics of your emergency department visit. If you don't have a primary care physician on staff, we will provide you with a referral. We always advise you to contact your personal physician following an emergency department visit to inform them of the circumstance of the visit and for follow-up with them and/or the need for any referrals to a consulting specialist. The emergency department will also refer you to a specialist when appropriate. This referral assures that you have the opportunity for follow-up care with a specialist. All of these measure are taken in an effort to provide you with optimal care, which includes your follow-up. Under all circumstances we always encourage you to contact your private physician who remains a resource for coordinating your care. When calling for follow-up care, please make the office aware that this follow-up is from your recent emergency room visit. If for any reason you are refused follow-up, please contact the [facility] Emergency Department at and asked to speak to the emergency department charge nurse. [facility] Primary Care [address] [place] [address] [facility] [address] [place] [id number] 1. Take medication as prescribed. You can alternate ibuprofen and Tylenol as directed for pain and discomfort. 2. Return to the ED in 24 hours for reevaluation of infection as discussed. Continue to monitor for spreading infection as discussed. 3. Return to the ED as needed and as discussed. Sepsis Event Note (ED) - Evaluation Sepsis Screening Result: No Definite Risk - Focused Exam Vital Signs: Vital Signs Temp Pulse Resp BP Pulse Ox 02/12/20 14:34 80 20 104/57 L 96 02/12/20 11:38 97.9 F 112 H 20 139/73 98 - My Orders Last 24 Hours: My Active Orders 02/12/20 11:54 Blood Culture x2 Reflex Set [OM.PC] Stat 02/12/20 12:30 CULTURE BLOOD [BC] Stat 02/12/20 12:57 CULTURE BLOOD [BC] Stat - Assessment/Plan Last 24 Hours: My Active Orders 02/12/20 11:54 Blood Culture x2 Reflex Set [OM.PC] Stat 02/12/20 12:30 CULTURE BLOOD [BC] Stat 02/12/20 12:57 CULTURE BLOOD [BC] Stat
[2020-02-12 14:59] VITALS: BP 113/54
== END 2020-02-12 15:11 | disposition home or self-care (01) ==
LOC: MW.ED 11:18
DX: L03.114 Cellulitis of left upper limb (principal); F41.9 Anxiety disorder, unspecified; F32.9 Major depressive disorder, single episode, unspecified; E66.9 Obesity, unspecified; Z68.42 Body mass index [BMI] 45.0-49.9, adult; Z79.899 Other long term (current) drug therapy
CPT/HCPCS: 36415; 73070; 80053; 83605; 85025; 87040; 96361; 96365; 99283; J0696; J7030

== ENCOUNTER 2020-02-14 11:16 | Emergency (ER) | payer MEDICAID | END 2020-02-14 12:30 | disposition left against medical advice (07) | LOC: MW.ED 11:16 | DX: Z53.21 Procedure and treatment not carried out due to patient leaving prior to being seen by health care provider (principal) ==

== ENCOUNTER 2020-02-14 13:30 | Emergency (ER) | payer MEDICAID ==
--- NOTE | 2020-02-14 14:03 | EDM.PDOC ---
ED HPI GENERAL MEDICAL PROBLEM - General Chief Complaint: Upper Extremity Injury/Pain Stated Complaint: LEFT ARM INJURY Time Seen by Provider: 02/14/20 13:32 Source of Information: Reports: Patient History Limitations: Reports: No Limitations - History of Present Illness INITIAL COMMENTS - FREE TEXT/NARRATIVE: 34F presents for L arm antecubital cellulitis 2/2 IVDA. She was seen 2 days ago for same and told to come back to ED if area of redness spread. She was given an rx for abx but never picked it up. She's been on another antibiotic at home that she had previously been given for R arm cellulitis but states it is not helping. Antibiotic was the same though, bactrim DS. The arm is painful, swollen, and red which is all worsening. No fevers, N/V. left arm Pain Score (Numeric/FACES): 10 - Related Data Allergies Allergy/AdvReac Type Severity Reaction Status Date / Time No Known Allergies Allergy Verified 02/14/20 13:43 Home Meds: Home Meds ARIPiprazole [Abilify] 15 mg PO DAILY 01/21/20 [History] Benztropine [Cogentin] 1 mg PO DAILY 01/21/20 [History] Sulfamethoxazole/Trimethoprim [Bactrim Ds Tablet] 1 each PO BID #20 tablet 01/21/20 [Rx] Sulfamethoxazole/Trimethoprim [Bactrim Ds Tablet] 1 each PO BID 10 Days #20 tablet 02/12/20 [Rx] Past Medical History - Past Health History Medical/Surgical History: Denies Medical/Surgical History HEENT History: Reports: Impaired Vision Genitourinary History: Reports: None 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: Neurological History: Reports: None Psychiatric History: Reports: Addiction, Anxiety, Depression, Suicide Attempt, Other (See Below) Other Psychiatric History: substance abuse Endocrine/Metabolic History: Reports: Diabetes, Gestational, Diabetes, Type II, Obesity/BMI 30+ Hematologic History: Reports: Other (See Below) Other Hematologic History: thrombocytopenia Immunologic History: Reports: None Oncologic (Cancer) History: Reports: None Dermatologic History: Reports: None - Infectious Disease History Infectious Disease History: Reports: Chicken Pox - Past Surgical History GI Surgical History: Reports: Appendectomy, Cholecystectomy Social & Family History - Family History Family Medical History: Noncontributory Cardiac: Reports: Heart Murmur : Reports: Other (See Below) Other Family History: kidney disease Psychiatric: Reports: Autism Immunologic: Reports: Other (See Below) Other Immunologic Family History: Hepatitis C Oncologic: Reports: Colon - Tobacco Use Smoking Status *Q: Former Smoker Used Tobacco, but Quit: Yes Month/Year Tobacco Last Used: 2019 - Caffeine Use Caffeine Use: Reports: Soda - Recreational Drug Use Recreational Drug Use: Yes Drug Use in Last 12 Months: Yes Recreational Drug Type: Reports: Methamphetamine Recreational Drug Use Frequency: Monthly Review of Systems - Review of Systems Review Of Systems: Comprehensive ROS is negative, except as noted in HPI. ED EXAM, GENERAL - Physical Exam Exam: See Below Exam Limited By: No Limitations General Appearance: Alert, WD/WN, No Apparent Distress Head: Atraumatic, Normocephalic Respiratory/Chest: No Respiratory Distress, Lungs Clear, Normal Breath Sounds, No Accessory Muscle Use Cardiovascular: Normal Peripheral Pulses, Regular Rate, Rhythm Extremities: Other (area of erythema, warmth, and TTP on L antecubital fossa extending beyond the marked area from 2 days ago) Neurological: Alert, Oriented Psychiatric: Normal Affect, Normal Mood Skin Exam: Warm, Dry Course - Vital Signs Last Recorded V/S: Last Vital Signs Temp 96.2 F L 02/14/20 13:45 Pulse 101 H 02/14/20 13:45 Resp 17 02/14/20 13:45 BP 93/52 L 02/14/20 13:45 Pulse Ox 96 02/14/20 13:45 - Orders/Labs/Meds Orders: Active Orders 24 hr Category Date Time Status CULTURE BLOOD [BC] Stat Lab 02/14/20 14:38 Received CULTURE BLOOD [BC] Stat Lab 02/14/20 15:15 Received Blood Culture x2 Reflex Set [OM.PC] Stat Oth 02/14/20 14:07 Ordered Labs: Laboratory Tests 02/14/20 02/14/20 Range/Units 14:38 14:38 WBC 6.09 (4.0-11.0) K/uL RBC 3.98 L (4.30-5.90) M/uL Hgb 12.4 (12.0-16.0) g/dL Hct 36.6 (36.0-46.0) % MCV 92.0 (80.0-98.0) fL MCH 31.2 (27.0-32.0) pg MCHC 33.9 (31.0-37.0) g/dL RDW Std Deviation 45.2 (28.0-62.0) fl RDW Coeff of Raúl 14 (11.0-15.0) % Plt Count 149 L (150-400) K/uL MPV 8.80 (7.40-12.00) fL Neut % (Auto) 66.1 (48.0-80.0) % Lymph % (Auto) 23.2 (16.0-40.0) % [place] % (Auto) 8.9 (0.0-15.0) % Eos % (Auto) 1.6 (0.0-7.0) % Baso % (Auto) 0.2 (0.0-1.5) % Neut # (Auto) 4.0 (1.4-5.7) K/uL Lymph # (Auto) 1.4 (0.6-2.4) K/uL [place] # (Auto) 0.5 (0.0-0.8) K/uL Eos # (Auto) 0.1 (0.0-0.7) K/uL Baso # (Auto) 0.0 (0.0-0.1) K/uL Nucleated RBC % 0.0 /100WBC Nucleated RBCs # 0 K/uL Sodium 136 (136-145) mmol/L Potassium 3.9 (3.5-5.1) mmol/L Chloride 102 (98-107) mmol/L Carbon Dioxide 27.1 (21.0-32.0) mmol/L BUN 6 L (7.0-18.0) mg/dL Creatinine 0.9 (0.6-1.0) mg/dL Est Cr Clr Drug Dosing 69.66 mL/min Estimated GFR (MDRD) > 60.0 ml/min Glucose 170 H (74-106) mg/dL Calcium 8.3 L (8.5-10.1) mg/dL Meds: Medications Discontinued Medications Generic Name Dose Route Start Last Admin Trade Name Freq PRN Reason Stop Dose Admin Sodium Chloride 1,000 mls @ 999 mls/hr 02/14/20 14:07 02/14/20 15:35 Normal Saline IV 02/14/20 15:07 999 mls/hr .Bolus ONE Administration Clindamycin Phosphate 600 mg/ 50 mls @ 100 mls/hr 02/14/20 14:07 02/14/20 15:34 Premix IV 02/14/20 14:36 100 mls/hr ONETIME ONE Administration Iopamidol 100 ml 02/14/20 15:14 02/14/20 15:14 Isovue-370 (76%) IVPUSH 02/14/20 15:15 100 ml ONETIME STA Administration Ketorolac Tromethamine 15 mg 02/14/20 15:26 02/14/20 15:34 Toradol IVPUSH 02/14/20 15:27 15 mg ONETIME ONE Administration Lidocaine/Epinephrine 10 ml 02/14/20 16:15 02/14/20 16:31 Xylocaine 1% With Epinephrine 1:100,000 INJECT 02/14/20 16:16 Not Given ONETIME ONE Lidocaine/Epinephrine Confirm 02/14/20 16:16 02/14/20 16:30 Xylocaine 1% With Epinephrine 1:100,000 Administered 02/14/20 16:17 Not Given Dose 20 ml .ROUTE .STK-MED ONE Lidocaine/Epinephrine 20 ml 02/14/20 16:30 02/14/20 16:32 Xylocaine 1% With Epinephrine 1:100,000 INJECT 02/14/20 16:31 20 ml ONETIME ONE Administration - Re-Assessments/Exams Free Text/Narrative Re-Assessment/Exam: 02/14/20 15:52 CT w/ evidence of abscess. Dr. Vallejo gen surg consulted and will see in ED 02/14/20 17:02 Dr. Vallejo has seen patient in ED and performed bedside I&D. She will f/u tomorrow for wound packing change and wound reassessment. She will f/u with Genevieve in 1-week. She will continue bactrim Departure - Departure Time of Disposition: 16:56 Disposition: Home, Self-Care 01 Condition: Good Clinical Impression: Abscess - Discharge Information Instructions: Skin Abscess Referrals: Angelica Vallejo MD [Physician] - 1 Week (please come back for wound check tomorrow and please set up appontment with physician Dr. Vallejo in 1-week) Forms: ED Department Discharge Additional Instructions: The following information is given to patients seen in the emergency department who are being discharged to home. This information is to outline your options for follow-up care. We provide all patients seen in our emergency department with a follow-up referral. The need for follow-up, as well as the timing and circumstances, are variable depending upon the specifics of your emergency department visit. If you don't have a primary care physician on staff, we will provide you with a referral. We always advise you to contact your personal physician following an emergency department visit to inform them of the circumstance of the visit and for follow-up with them and/or the need for any referrals to a consulting specialist. The emergency department will also refer you to a specialist when appropriate. This referral assures that you have the opportunity for follow-up care with a specialist. All of these measure are taken in an effort to provide you with optimal care, which includes your follow-up. Under all circumstances we always encourage you to contact your private physician who remains a resource for coordinating your care. When calling for follow-up care, please make the office aware that this follow-up is from your recent emergency room visit. If for any reason you are refused follow-up, please contact the [facility] Emergency Department at and asked to speak to the emergency department charge nurse. Sepsis Event Note (ED) - Evaluation Sepsis Screening Result: Possible Sepsis Risk - Focused Exam Vital Signs: Vital Signs Temp Pulse Resp BP Pulse Ox 02/14/20 13:45 96.2 F L 101 H 17 93/52 L 96 - My Orders Last 24 Hours: My Active Orders 02/14/20 14:07 Blood Culture x2 Reflex Set [OM.PC] Stat 02/14/20 14:38 CULTURE BLOOD [BC] Stat 02/14/20 15:15 CULTURE BLOOD [BC] Stat - Assessment/Plan Last 24 Hours: My Active Orders 02/14/20 14:07 Blood Culture x2 Reflex Set [OM.PC] Stat 02/14/20 14:38 CULTURE BLOOD [BC] Stat 02/14/20 15:15 CULTURE BLOOD [BC] Stat
[2020-02-14] MEDS ORDERED: Sodium Chloride 0.9% 1,000 ML IV ONE (14:07)
[2020-02-14] MEDS ORDERED: Clindamycin Phosphate in D5W 600 MG in Premix Bag 1 BAG IV ONE ×2 (14:07)
[2020-02-14 15:14] LABS: BLOOD UREA NITROGEN,BUN 6 mg/dL (7.0-18.0); CARBON DIOXIDE,CO2 27.1 mmol/L (21.0-32.0); CHLORIDE,CL 102 mmol/L (98-107); GLUCOSE RANDOM 170 mg/dL (74-106); POTASSIUM,K 3.9 mmol/L (3.5-5.1); SODIUM,NA 136 mmol/L (136-145)
[2020-02-14] MEDS ORDERED: Iopamidol 755 Mg/ML 100 ML Bottle IVPUSH STA (15:14)
[2020-02-14] MEDS ORDERED: Ketorolac 30 MG/ML SDV IVPUSH ONE (15:26)
--- NOTE | 2020-02-14 15:32 | CT ---
CT left elbow Technique: Multiple axial sections through the left elbow were obtained. Reconstructed coronal and sagittal images were obtained. Comparison: Previous left elbow radiographic exam of 02/12/20. Findings: No joint effusion is seen. No fracture is identified. Joint spaces are preserved. Low density area is noted within the anterior elbow measuring 2.3 cm x 2.1 cm which has the appearance of abscess. Surrounding soft tissue swelling and infiltration into the subcutaneous fat is seen. Impression: 1. Findings compatible with soft tissue abscess anteriorly within the elbow. 2. No acute bony abnormality is seen. Diagnostic code #3 This report was dictated in MDT
[2020-02-14] MEDS ORDERED: Lidocaine 1% with EPINEPHrine 1:100,000 10 ML MDV INJECT ONE (16:15)
[2020-02-14] MEDS ORDERED: Lidocaine 1% with EPINEPHrine 1:100,000 20 ML MDV ONE (16:16)
[2020-02-14] MEDS ORDERED: Lidocaine 1% with EPINEPHrine 1:100,000 20 ML MDV INJECT ONE (16:30)
--- NOTE | 2020-02-14 17:01 | PCM.CONS ---
H&P History of Present Illness - General Date of Service: 02/14/20 Source of Information: Patient History Limitations: Reports: No Limitations - History of Present Illness Initial Comments - Free Text/Narative: Patient is a 34-year-old female who presents with a left antecubital abscess. She is an IV drug user. She does share needles. The other day she noticed some redness. She presented the emergency room and was given Bactrim. Despite the use of Bactrim and the redness has increased. She is now having swelling and extreme pain in the antecubital fossa. She presented back to the emergency room. Her vital signs were stable. Her white blood cell count was normal. A CT of the left arm was performed that showed an abscess in the antecubital fossa surrounded by inflammatory change in the soft tissues. I was consulted on the patient for a possible incision and drainage. The patient states she has never had any issues with abscesses or skin infections in the past. left arm Pain Score (Numeric/FACES): 10 - Related Data Allergies/Adverse Reactions: Allergies Allergy/AdvReac Type Severity Reaction Status Date / Time No Known Allergies Allergy Verified 02/15/20 10:03 Home Medications: Home Meds ARIPiprazole [Abilify] 15 mg PO DAILY 01/21/20 [History] Benztropine [Cogentin] 1 mg PO DAILY 01/21/20 [History] Sulfamethoxazole/Trimethoprim [Bactrim Ds Tablet] 1 each PO BID #20 tablet 01/21/20 [Rx] Sulfamethoxazole/Trimethoprim [Bactrim Ds Tablet] 1 each PO BID 10 Days #20 tablet 02/12/20 [Rx] Ondansetron [Zofran ODT] 4 mg PO Q6H PRN #8 tab.dis 02/15/20 [Rx] Past Medical History - Past Health History Medical/Surgical History: Denies Medical/Surgical History HEENT History: Reports: Impaired Vision Genitourinary History: Reports: None 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: Neurological History: Reports: None Psychiatric History: Reports: Addiction, Anxiety, Depression, Suicide Attempt, Other (See Below) Other Psychiatric History: substance abuse Endocrine/Metabolic History: Reports: Diabetes, Gestational, Diabetes, Type II, Obesity/BMI 30+ Hematologic History: Reports: Other (See Below) Other Hematologic History: thrombocytopenia Immunologic History: Reports: None Oncologic (Cancer) History: Reports: None Dermatologic History: Reports: None - Infectious Disease History Infectious Disease History: Reports: Chicken Pox - Past Surgical History GI Surgical History: Reports: Appendectomy, Cholecystectomy Social & Family History - Family History Family Medical History: Noncontributory Cardiac: Reports: Heart Murmur : Reports: Other (See Below) Other Family History: kidney disease Psychiatric: Reports: Autism Immunologic: Reports: Other (See Below) Other Immunologic Family History: Hepatitis C Oncologic: Reports: Colon - Tobacco Use Smoking Status *Q: Former Smoker Used Tobacco, but Quit: Yes Month/Year Tobacco Last Used: 2019 - Caffeine Use Caffeine Use: Reports: Soda - Recreational Drug Use Recreational Drug Use: Yes Drug Use in Last 12 Months: Yes Recreational Drug Type: Reports: Methamphetamine Recreational Drug Use Frequency: Monthly H&P Review of Systems - Review of Systems: Review Of Systems: Comprehensive ROS is negative, except as noted in HPI. Exam - Exam Exam: See Below - Vital Signs Vital Signs: Last Vital Signs Temp 35.7 C L 02/14/20 13:45 Pulse 101 H 02/14/20 13:45 Resp 17 02/14/20 13:45 BP 93/52 L 02/14/20 13:45 Pulse Ox 96 02/14/20 13:45 Weight: 113.398 kg - Exam Quality Assessment: Supplemental Oxygen General: Alert, Oriented HEENT: Conjunctiva Clear, Mucosa Moist & [place], Posterior Pharynx Clear Lungs: Normal Respiratory Effort Cardiovascular: Regular Rate Extremities: Other (fluctuant area in the antecubital fossa surrounded by erythema and edema ) - Patient Data Lab Results Last 24 hrs: Laboratory Results - last 24 hr 02/14/20 02/14/20 Range/Units 14:38 14:38 WBC 6.09 (4.0-11.0) K/uL RBC 3.98 L (4.30-5.90) M/uL Hgb 12.4 (12.0-16.0) g/dL Hct 36.6 (36.0-46.0) % MCV 92.0 (80.0-98.0) fL MCH 31.2 (27.0-32.0) pg MCHC 33.9 (31.0-37.0) g/dL RDW Std Deviation 45.2 (28.0-62.0) fl RDW Coeff of Raúl 14 (11.0-15.0) % Plt Count 149 L (150-400) K/uL MPV 8.80 (7.40-12.00) fL Neut % (Auto) 66.1 (48.0-80.0) % Lymph % (Auto) 23.2 (16.0-40.0) % [place] % (Auto) 8.9 (0.0-15.0) % Eos % (Auto) 1.6 (0.0-7.0) % Baso % (Auto) 0.2 (0.0-1.5) % Neut # (Auto) 4.0 (1.4-5.7) K/uL Lymph # (Auto) 1.4 (0.6-2.4) K/uL [place] # (Auto) 0.5 (0.0-0.8) K/uL Eos # (Auto) 0.1 (0.0-0.7) K/uL Baso # (Auto) 0.0 (0.0-0.1) K/uL Nucleated RBC % 0.0 /100WBC Nucleated RBCs # 0 K/uL Sodium 136 (136-145) mmol/L Potassium 3.9 (3.5-5.1) mmol/L Chloride 102 (98-107) mmol/L Carbon Dioxide 27.1 (21.0-32.0) mmol/L BUN 6 L (7.0-18.0) mg/dL Creatinine 0.9 (0.6-1.0) mg/dL Est Cr Clr Drug Dosing 69.66 mL/min Estimated GFR (MDRD) > 60.0 ml/min Glucose 170 H (74-106) mg/dL Calcium 8.3 L (8.5-10.1) mg/dL Result Diagrams: 02/14/20 14:38 02/14/20 14:38 Sepsis Event Note - Evaluation Sepsis Screening Result: Possible Sepsis Risk - Focused Exam Vital Signs: Vital Signs Temp Pulse Resp BP Pulse Ox 02/14/20 13:45 35.7 C L 101 H 17 93/52 L 96 Consult PN Assessment/Plan Procedures: Procedures ALPHA-FETOPROTEIN SERUM (08/06/16) ASSAY GLUCOSE BLOOD QUANT (04/02/17) ASSAY OF BLOOD/URIC ACID (05/13/17) ASSAY OF ESTRIOL (08/06/16) ASSAY OF LACTIC ACID (05/20/18) ASSAY OF MAGNESIUM (05/20/18) ASSAY THYROID STIM HORMONE (05/20/18) BLOOD CULTURE FOR BACTERIA (05/20/18) BLOOD TYPING SEROLOGIC ABO (08/06/16) BLOOD TYPING SEROLOGIC RH(D) (08/06/16) C-REACTIVE PROTEIN (05/13/17) ORQUE DNA DIR PROBE (02/19/17) CHORIONIC GONADOTROPIN TEST (05/20/18) CHYLMD TRACH DNA AMP PROBE (06/10/16) COMPLETE CBC AUTOMATED (02/25/17) COMPLETE CBC W/AUTO DIFF WBC (05/20/18) COMPREHEN METABOLIC PANEL (05/20/18) CT ABD & PELVIS W/O CONTRAST (05/20/18) CT HEAD/BRAIN W/O DYE (09/04/18) CULTURE AEROBIC IDENTIFY (05/20/18) CULTURE OTHR SPECIMN AEROBIC (06/10/16) CULTURE SCREEN ONLY (12/18/16) DRUG TEST PRSMV DIR OPT OBS (05/20/18) ELECTROCARDIOGRAM TRACING (05/20/18) EMERGENCY DEPT VISIT (01/21/20) EMERGENCY DEPT VISIT (09/04/18) EMERGENCY DEPT VISIT (05/20/18) EMERGENCY DEPT VISIT (05/13/17) EMERGENCY DEPT VISIT (05/30/16) EMERGENCY DEPT VISIT (02/16/16) VILLAVICENCIO VAG DNA DIR PROBE (02/19/17) GLUCOSE BLOOD TEST (01/27/19) GLUCOSE TEST (04/02/17) GLUCOSE TOLERANCE TEST (GTT) (10/18/16) GLYCOSYLATED HEMOGLOBIN TEST (11/05/16) HEPATITIS B SURFACE AG IA (08/06/16) HEPATITIS C AB TEST (08/06/16) HIV-1 AG W/HIV-1 & HIV-2 AB (08/06/16) HYDRATE IV INFUSION ADD-ON (05/20/18) IIV4 VACC NO PRSV 0.5 ML IM (05/20/18) INFLUENZA ASSAY W/OPTIC (05/20/18) INHIBIN A (08/06/16) METABOLIC PANEL TOTAL CA (05/20/18) MICROBE SUSCEPTIBLE GELACIO (05/20/18) MRI NECK SPINE W/O DYE (05/20/18) N.GONORRHOEAE DNA AMP PROB (06/10/16) OB US >/= 14 WKS SNGL FETUS (09/06/16) RBC ANTIBODY SCREEN (08/06/16) ROUTINE VENIPUNCTURE (05/20/18) RUBELLA ANTIBODY (08/06/16) SYPHILIS TEST NON-TREP QUAL (08/06/16) TDAP VACCINE 7 YRS/> IM (02/16/16) THER/PROPH/DIAG INJ SC/IM (05/13/17) THER/PROPH/DIAG IV INF INIT (05/20/18) TRICHOMONAS VAGIN DIR PROBE (02/19/17) TX/PRO/DX INJ NEW DRUG ADDON (05/20/18) URINALYSIS AUTO W/O SCOPE (10/04/16) URINALYSIS AUTO W/SCOPE (05/20/18) URINE BACTERIA CULTURE (05/20/18) URINE CULTURE/COLONY COUNT (05/20/18) URINE TEST (09/04/18) X-RAY EXAM OF KNEE 3 (05/13/17) (1) Abscess SNOMED Code(s): 260125926 Code(s): L02.91 - CUTANEOUS ABSCESS, UNSPECIFIED (2) Cellulitis of antecubital fossa SNOMED Code(s): 732952647 Code(s): L03.119 - CELLULITIS OF UNSPECIFIED PART OF LIMB Problem List Initiated/Reviewed/Updated: Yes Plan: Likely the patient's cellulitis has resolved due to the abscess in the area. I explained for an incision and drainage of the abscess. I explained that afterwards the patient will need to have packing that needs to get changed daily. I explained the procedure the expected preoperative course and the risks including bleeding, recurrent infection, or damage to surrounding structures. She verbalized understanding and wishes to proceed. I performed an incision and drainage without complication. The wound was packed with half-inch iodoform packing strip and cover with gauze. The patient will come back tomorrow for a wound check and dressing change. After that she can perform dressing changes at home. I will follow-up with her in one week for a wound check.
[2020-02-14 19:41] VITALS: BP 118/62; PULSE 82
--- NOTE | 2020-02-15 16:36 | OR ---
SURGEON: ANGELICA VALLEJO MD DATE OF PROCEDURE: 02/14/2020 PREOPERATIVE DIAGNOSIS: Antecubital abscess, left arm. POSTOPERATIVE DIAGNOSIS: Antecubital abscess, left arm. PROCEDURE PERFORMED: Incision and drainage of left antecubital abscess. PRIMARY SURGEON: Angelica Vallejo MD ANESTHESIA: Lidocaine 1% with epinephrine. FLUIDS: None. ESTIMATED BLOOD LOSS: 2 mL. FINDINGS: 2 cm in diameter antecubital abscess. COMPLICATIONS: None. INDICATIONS: The patient is a 34-year-old female who is an IV drug user and presents with an abscess in her left antecubital fossa. I was called by the emergency room to perform an incision and drainage of this. I examined the patient and explained the need for an incision and drainage of this abscess. I explained the procedure, the need for dressing changes afterwards, and the risks of bleeding or subsequent infection. She verbalized understanding and wishes to proceed. PROCEDURE IN DETAIL: The patient was met in the ER and placed in supine position on the ER cart. A time-out was completed. The left antecubital fossa was prepped and draped in usual standard fashion. I anesthetized the area of maximal fluctuance with 1% lidocaine with epinephrine. 2 mL was used. Using an 11 blade, an incision was made over the top of the area of maximal fluctuance. Using a hemostat, I dissected into the abscess cavity. Purulent material was expressed. Aerobic cultures were taken and sent to pathology. I then extended my incision medially and laterally. The incision measured 1.5 cm in size. The abscess cavity was approximately 2 cm in diameter. The wound was irrigated with the remaining lidocaine as well as normal saline. It was then packed with half-inch iodoform packing strip and covered with 4 x 4 gauze, which was secured in place with tape. The patient tolerated the procedure well with no immediate complications. SAL / CHELE /[id number]
== END 2020-02-14 17:30 | disposition home or self-care (01) ==
LOC: MW.ED 13:30
DX: L02.414 Cutaneous abscess of left upper limb (principal); F41.9 Anxiety disorder, unspecified; F32.9 Major depressive disorder, single episode, unspecified; E66.9 Obesity, unspecified; Z68.42 Body mass index [BMI] 45.0-49.9, adult; Z87.891 Personal history of nicotine dependence; Z79.899 Other long term (current) drug therapy
CPT/HCPCS: 10060; 36415; 73201; 80048; 85025; 87040; 87070; 96365; 96375; 99284; J1885; J3490; J7030; Q9967; 99283

== ENCOUNTER 2020-02-15 09:47 | Emergency (ER) | payer MEDICAID ==
[2020-02-15] MEDS ORDERED: Ondansetron 4 MG Tab.DIS PO ONE (10:12)
--- NOTE | 2020-02-15 10:16 | EDM.PDOC ---
ED HPI GENERAL MEDICAL PROBLEM - General Chief Complaint: Wound Recheck Stated Complaint: REDO BANDAGE WRAP Time Seen by Provider: 02/15/20 10:03 Source of Information: Reports: Patient History Limitations: Reports: No Limitations - History of Present Illness INITIAL COMMENTS - FREE TEXT/NARRATIVE: HISTORY AND PHYSICAL: History of present illness: Patient is a 34-year-old female who presents to the emergency room for a wound recheck. She was seen in the emergency room for an abscess with cellulitis secondary to IV drug use. Dr. Vallejo had came and I&D the site and packed with iodoform. It was requested that she come in for reevaluation of the site and repacking of the wound. Patient offers no current complaints or concerns, stating it does feel somewhat improved since her ER visit yesterday. She has been taking her antibiotic as directed. Patient denies any fever, chills, headache, change in vision, syncope or near syncope. Denies any chest pain, back pain, shortness of breath or cough. Denies any GI or symptoms. Patient has been eating and drinking appropriately. Review of systems: As per history of present illness and below otherwise all systems reviewed and negative. Past medical history: As per history of present illness and as reviewed below otherwise noncontributory. Surgical history: As per history of present illness and as reviewed below otherwise noncontributory. Social history: See social history for further information Family history: As per history of present illness and as reviewed below otherwise noncontributory. Physical exam: General: Well developed and well nourished 34 year old fema. Alert and orientated x 3. Nontoxic in appearance and in no acute distress. Vital signs are stable and have been reviewed by me. Nursing notes were reviewed. HEENT: Atraumatic, normocephalic, pupils equal and reactive bilaterally, negative for conjunctival pallor or scleral icterus, mucous membranes moist, TMs normal bilaterally, throat clear, neck supple, nontender, trachea midline. No drooling or trismus noted. No meningeal signs. No hot potato voice noted. Lungs: Clear to auscultation, breath sounds equal bilaterally, chest nontender. Normal work of breathing, no accessory muscles used. Heart: S1S2, regular rate and rhythm without overt murmur Abdomen: Soft, nondistended, nontender. Skin: Marked area of the left antecubital with surgical marker which she states previously was the border of cellulitis, this is approximately 2 fingerbreadths in, appears improved. No surrounding fluctuance at the I&D site. See note for details. Otherwise skin is intact, warm, dry. No lesions or rashes noted. Hematologic: No petechiae or purpra. Mucosa appropriate color and normal nail bed color and refill. Extremities: Atraumatic, moves all extremities per self without difficulty or deficits, negative for cords or calf pain. Neurovascular unremarkable. Neuro: Awake, alert, oriented. Cranial nerves II through XII unremarkable. Cerebellum unremarkable. Motor and sensory unremarkable throughout. Exam nonfocal. Psychiatric: Mood and affect are appropriate. Normal thought process. Answering questions appropriately. Notes: The cellulitis/abscess/I&D site appears improved from yesterday. Patient states it also feels much better. The iodoform packing was removed and replaced. Patient tolerated well. Nonstick dressing applied. She does request some Zofran as she states the antibiotics make her nauseous. We will have her return for redressing of the wound tomorrow. We discussed signs and symptoms that would prompt them to return to the Emergency Department. Medication, follow up and supportive care measures were reviewed and discussed. Voices understanding and is agreeable to plan of care. Denies any further questions or concerns at this time. Diagnostics: None Therapeutics: Wound care Prescription: Zofran Impression: Encounter for wound reevaluation Plan: 1. Today your physical exam appears that the abscess/cellulitis is improving. Continue to take the Bactrim as directed and monitor the site. Return in the next 24 to 48 hours for an additional dressing change we always encourage you to follow up with your primary care provider or recommended specialist in the next few days for re-evaluation and further care/management. If your symptoms should worsen, new symptoms develop or any of the signs and symptoms we discussed should arise please return to the emergency room or call 911 (if needed). 2. Zofran as needed for nausea. Continue alternating Tylenol and ibuprofen for pain management. 3. Keep your appointment with Dr. Vallejo for next week Definitive disposition and diagnosis as appropriate pending reevaluation and review of above. left upper arm Pain Score (Numeric/FACES): 5 - Related Data Allergies Allergy/AdvReac Type Severity Reaction Status Date / Time No Known Allergies Allergy Verified 02/15/20 10:03 Home Meds: Home Meds ARIPiprazole [Abilify] 15 mg PO DAILY 01/21/20 [History] Benztropine [Cogentin] 1 mg PO DAILY 01/21/20 [History] Sulfamethoxazole/Trimethoprim [Bactrim Ds Tablet] 1 each PO BID #20 tablet 01/21/20 [Rx] Sulfamethoxazole/Trimethoprim [Bactrim Ds Tablet] 1 each PO BID 10 Days #20 tablet 02/12/20 [Rx] Ondansetron [Zofran ODT] 4 mg PO Q6H PRN #8 tab.dis 02/15/20 [Rx] Past Medical History - Past Health History Medical/Surgical History: Denies Medical/Surgical History HEENT History: Reports: Impaired Vision Cardiovascular History: Reports: None Respiratory History: Reports: None Gastrointestinal History: Reports: None Genitourinary History: Reports: None 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: Musculoskeletal History: Reports: None Neurological History: Reports: None Psychiatric History: Reports: Addiction, Anxiety, Depression, Suicide Attempt, Other (See Below) Other Psychiatric History: substance abuse Endocrine/Metabolic History: Reports: Diabetes, Gestational, Diabetes, Type II, Obesity/BMI 30+ Hematologic History: Reports: Other (See Below) Other Hematologic History: thrombocytopenia Immunologic History: Reports: None Oncologic (Cancer) History: Reports: None Dermatologic History: Reports: None - Infectious Disease History Infectious Disease History: Reports: Chicken Pox - Past Surgical History Head Surgeries/Procedures: Reports: None HEENT Surgical History: Reports: None Cardiovascular Surgical History: Reports: None Respiratory Surgical History: Reports: None GI Surgical History: Reports: Appendectomy, Cholecystectomy Female Surgical History: Reports: None Endocrine Surgical History: Reports: None Neurological Surgical History: Reports: None Musculoskeletal Surgical History: Reports: None Oncologic Surgical History: Reports: None Dermatological Surgical History: Reports: None Social & Family History - Family History Family Medical History: Noncontributory Cardiac: Reports: Heart Murmur : Reports: Other (See Below) Other Family History: kidney disease Psychiatric: Reports: Autism Immunologic: Reports: Other (See Below) Other Immunologic Family History: Hepatitis C Oncologic: Reports: Colon - Tobacco Use Smoking Status *Q: Never Smoker - Caffeine Use Caffeine Use: Reports: None - Recreational Drug Use Recreational Drug Use: Yes Recreational Drug Type: Reports: Methamphetamine ED ROS GENERAL - Review of Systems Review Of Systems: Comprehensive ROS is negative, except as noted in HPI. ED EXAM, SKIN/RASH Exam: See Below (See dictation) Course - Vital Signs Last Recorded V/S: Last Vital Signs Temp 96.2 F L 02/15/20 10:04 Pulse 84 02/15/20 10:23 Resp 17 02/15/20 10:23 BP 106/64 02/15/20 10:23 Pulse Ox 98 02/15/20 10:23 - Orders/Labs/Meds Meds: Medications Discontinued Medications Generic Name Dose Route Start Last Admin Trade Name Freq PRN Reason Stop Dose Admin Ondansetron HCl 4 mg 02/15/20 10:12 02/15/20 10:22 Zofran Odt PO 02/15/20 10:13 4 mg ONETIME ONE Administration Departure - Departure Time of Disposition: 10:15 Disposition: Home, Self-Care 01 Clinical Impression: Encounter for wound re-check - Discharge Information Prescriptions: Ondansetron [Zofran ODT] 4 mg PO Q6H PRN #8 tab.dis PRN Reason: Nausea Instructions: Wound Packing, Wound Infection, [id number] Referrals: PCP,None [Primary Care Provider] - Forms: ED Department Discharge Additional Instructions: The following information is given to patients seen in the emergency department who are being discharged to home. This information is to outline your options for follow-up care. We provide all patients seen in our emergency department with a follow-up referral. The need for follow-up, as well as the timing and circumstances, are variable depending upon the specifics of your emergency department visit. If you don't have a primary care physician on staff, we will provide you with a referral. We always advise you to contact your personal physician following an emergency department visit to inform them of the circumstance of the visit and for follow-up with them and/or the need for any referrals to a consulting specialist. The emergency department will also refer you to a specialist when appropriate. This referral assures that you have the opportunity for follow-up care with a specialist. All of these measure are taken in an effort to provide you with optimal care, which includes your follow-up. Under all circumstances we always encourage you to contact your private physician who remains a resource for coordinating your care. When calling for follow-up care, please make the office aware that this follow-up is from your recent emergency room visit. If for any reason you are refused follow-up, please contact the [facility] Emergency Department at and asked to speak to the emergency department charge nurse. [facility] [address] [place] [address] [facility] [address] [place] [address] Thank you for choosing the [facility] emergency department in [place] for your medical needs today. It was a pleasure caring for you. Today you were seen in the emergency department for wound reevaluation 1. Today your physical exam appears that the abscess/cellulitis is improving. Continue to take the Bactrim as directed and monitor the site. Return in the next 24 to 48 hours for an additional dressing change we always encourage you to follow up with your primary care provider or recommended specialist in the next few days for re-evaluation and further care/management. If your symptoms should worsen, new symptoms develop or any of the signs and symptoms we discussed should arise please return to the emergency room or call 911 (if needed). 2. Zofran as needed for nausea. Continue alternating Tylenol and ibuprofen for pain management. 3. Keep your appointment with Dr. Vallejo for next week Sepsis Event Note (ED) - Evaluation Sepsis Screening Result: No Definite Risk - Focused Exam Vital Signs: Vital Signs Temp Pulse Resp BP BP Pulse Ox 02/15/20 10:23 84 17 106/64 98 02/15/20 10:04 96.2 F L 87 18 110/51 L 98
[2020-02-15 10:25] VITALS: BP 106/64; PULSE 84
== END 2020-02-15 10:25 | disposition home or self-care (01) ==
LOC: MW.ED 09:47
DX: Z48.817 Encounter for surgical aftercare following surgery on the skin and subcutaneous tissue (principal); F32.9 Major depressive disorder, single episode, unspecified; Z79.899 Other long term (current) drug therapy
CPT/HCPCS: 99282; A9270

== ENCOUNTER 2020-02-16 16:24 | Emergency (ER) | payer MEDICAID ==
[2020-02-16] MEDS ORDERED: Ibuprofen 400 MG Tab PO ONE (16:55)
[2020-02-16] MEDS ORDERED: Acetaminophen 500 MG Tab PO ONE (16:55)
--- NOTE | 2020-02-16 16:56 | EDM.PDOC ---
ED HPI GENERAL MEDICAL PROBLEM - General Chief Complaint: Skin Complaint Stated Complaint: wound check Time Seen by Provider: 02/16/20 16:38 Source of Information: Reports: Patient, Old Records History Limitations: Reports: No Limitations - History of Present Illness INITIAL COMMENTS - FREE TEXT/NARRATIVE: 34-year-old female past medical history of methamphetamine abuse and IVDU presenting for a wound re-evaluation, status post I&D of a left antecubital fossa abscess on 02/14/2020. 01/21/2020 - Seen in ED and diagnosed with cellulitis of the right antecubital fossa, started on oral antibiotics ([id number]). 02/11 Seen in ED for same - given IV ceftriaxone and 2nd Rx for Bactrim DS. 02/13 - ED visit for persistent erythema, given IV clindamycin and CT showed abscess. Bedside I&D by Dr. Vallejo, continued on Bactrim DS. Packing left in, instructed to f/u with clinic for daily wound changes. 02/14 - ED visit for wound re-check. Looked improved per ED documentation. Today, returns to ED c/o subjective fever and ongoing drainage. Complains of fever but has not checked her temperature with a thermometer that she has at home. Complains of intermittent nausea and feeling unwell. States redness is receding. Still taking her prescribed Bactrim DS. Past medical history: Reviewed, no additional pertinent history. Surgical history: Reviewed in system, no additional pertinent history. Social history: Reviewed in system, no additional pertinent history. Family history: Reviewed in system, no additional pertinent history. PHYSICAL EXAM Vital signs reviewed. Nursing notes reviewed. Constitutional: Awake, alert, non-distressed. Head: Normocephalic, atraumatic. Eyes: EOMI, conjunctiva normal, no discharge, no scleral icterus. Cardiovascular: 2+ radial pulse, capillary refill less than 2 seconds. Pulmonary: normal work of breathing, no accessory muscle use. Musculoskeletal: No deformities. Full range of motion of the left elbow. Integumentary: Appropriate color for ethnicity, warm, dry, no pallor or jaundice, no rash. Left antecubital fossa has packing at the incision and drainage site, packing is wet with purulent drainage. There is no surrounding induration or erythema to suggest persistent cellulitis. The I&D site appears as expected. Neurologic: Alert, answering questions appropriately, normal speech, no facial droop, moving all extremities well. Psychiatric: Appropriate mood and affect, normal thought process. wound area - left arm Pain Score (Numeric/FACES): 7 - Related Data Allergies Allergy/AdvReac Type Severity Reaction Status Date / Time No Known Allergies Allergy Verified 02/16/20 16:35 Home Meds: Home Meds Sulfamethoxazole/Trimethoprim [Bactrim Ds Tablet] 1 each PO BID 10 Days #20 tablet 02/12/20 [Rx] Ondansetron [Zofran ODT] 4 mg PO Q6H PRN #8 tab.dis 02/15/20 [Rx] Past Medical History - Past Health History Medical/Surgical History: Denies Medical/Surgical History HEENT History: Reports: Impaired Vision Cardiovascular History: Reports: None Respiratory History: Reports: None Gastrointestinal History: Reports: None Genitourinary History: Reports: None 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: Musculoskeletal History: Reports: None Neurological History: Reports: None Psychiatric History: Reports: Addiction, Anxiety, Depression, Suicide Attempt, Other (See Below) Other Psychiatric History: substance abuse Endocrine/Metabolic History: Reports: Diabetes, Gestational, Diabetes, Type II, Obesity/BMI 30+ Insulin Pump Model and Foundation Director: None Hematologic History: Reports: Other (See Below) Other Hematologic History: thrombocytopenia Immunologic History: Reports: None Oncologic (Cancer) History: Reports: None Dermatologic History: Reports: None - Infectious Disease History Infectious Disease History: Reports: None - Past Surgical History Head Surgeries/Procedures: Reports: None Cardiovascular Surgical History: Reports: None Respiratory Surgical History: Reports: None GI Surgical History: Reports: Appendectomy, Cholecystectomy Musculoskeletal Surgical History: Reports: None Social & Family History - Family History Family Medical History: Noncontributory Cardiac: Reports: Heart Murmur : Reports: Other (See Below) Other Family History: kidney disease Psychiatric: Reports: Autism Immunologic: Reports: Other (See Below) Other Immunologic Family History: Hepatitis C Oncologic: Reports: Colon - Tobacco Use Smoking Status *Q: Current Status Unknown - Caffeine Use Caffeine Use: Reports: None - Recreational Drug Use Recreational Drug Use: Yes Drug Use in Last 12 Months: Yes Recreational Drug Type: Reports: Methamphetamine ED ROS GENERAL - Review of Systems Review Of Systems: See Below ED EXAM, SKIN/RASH Exam: See Below Course - Vital Signs Text/Narrative:: 34-year-old female presenting for reevaluation status post incision and drainage of left antecubital fossa IVDA related abscess on 02/14/2020. Here she is afebrile, normal heart rate. She complains of fever at home but is afebrile here. She looks nontoxic and does not show signs of systemic illness or sepsis. I did examine the I&D site. It appears as one would expect. There is no induration or spreading erythema. No evidence of persistent cellulitis and the I&D site is draining as expected so I do not think we need to repeat the I&D. I reviewed the wound culture from 02/14/2020, showing no growth. Apparently the patient was given packing materials at discharge previously but she has not been changing her packing. We changed her pecking and some purulent material was expressed. The incision site is patent and does not need to be extended. We will give her more packing materials and instruct her about how to change her packing at home The general surgeon wanted to see her in the clinic in about 1 week after the initial I&D. We will provide her contact information for the clinic and it encourage her to make a follow-up appointment. We will have her continue taking the Bactrim DS as directed and finish the bottle. She can take [id number] Tylenol and Motrin as needed for pain. We will have her take daily photos of the I&D site to evaluate for any spreading erythema or change in appearance. I do not see a need for repeat labs, IV antibiotics, or imaging at this point. Counseled the patient to take her temperature at home should she feel feverish, also provided return precautions for chills, repeated vomiting, or any other new or concerning symptoms or concern about worsening of her wound. The wound appears as expected at this point in her course of treatment. She is stable to discharge home with outpatient general surgery clinic follow- up. Strict emergency department return precautions were provided, patient indicated understanding. All questions were answered prior to departure. Discharged in good condition. Last Recorded V/S: Last Vital Signs Temp 36 C L 02/16/20 16:36 Pulse 77 02/16/20 17:47 Resp 16 02/16/20 17:47 BP 96/52 L 02/16/20 17:47 Pulse Ox 97 02/16/20 17:47 - Orders/Labs/Meds Meds: Medications Discontinued Medications Generic Name Dose Route Start Last Admin Trade Name Elisha PRN Reason Stop Dose Admin Acetaminophen 1,000 mg 02/16/20 16:55 02/16/20 17:07 Tylenol Extra Strength PO 02/16/20 16:56 1,000 mg ONETIME ONE Administration Ibuprofen 400 mg 02/16/20 16:55 02/16/20 17:07 Motrin PO 02/16/20 16:56 400 mg ONETIME ONE Administration Departure - Departure Time of Disposition: 17:26 Disposition: Home, Self-Care 01 Condition: Good Clinical Impression: Abscess re-check - Discharge Information *PRESCRIPTION DRUG MONITORING PROGRAM REVIEWED*: Not Applicable *COPY OF PRESCRIPTION DRUG MONITORING REPORT IN PATIENT FIONA: Not Applicable Instructions: Wound Packing Referrals: [facility] - General Surgery [Provider Group] - 3 Days (Follow-up on 02/21/2020 for abscess re-check.) Forms: ED Department Discharge Additional Instructions: You were seen in the emergency department for recheck of your abscess. The abscess looks as expected to me and I do not see a need to repeat the incision and drainage at this point. We repacked your abscess and we will give you instructions about how to change the packing at home. Continue taking your oral antibiotics and finish the bottle. You can take [id number] Tylenol or Motrin as directed in the package for pain. Dr. Vallejo the general surgeon did want to see you in their clinic for reevaluation of your abscess. Ideally this will be on 02/21/2020. Call the clinic scheduling number in the morning to try to set up an appointment. Warning signs to return to the ER include fever (temperature of 100.4 or higher), chills, repeated vomiting, or if you think that your wound looks worse. Come back to the ER immediately if any of these things happen. Please return the emergency department immediately if your symptoms worsen or if you feel worse. Thank you for choosing the [facility] emergency department in [place] for your medical needs today. It was a pleasure caring for you. The following information is given to patients seen in the emergency department who are being discharged. This information is to outline your options for follow-up care. We provide all patients seen in our emergency department with a follow-up referral. The need for follow-up, as well as the timing and circumstances, are variable depending upon the specifics of your emergency department visit. If you don't have a primary care physician on staff, we will provide you with a referral. We always advise you to contact your personal physician following an emergency department visit to inform them of the circumstance of the visit and for follow-up with them and/or the need for any referrals to a consulting specialist. The emergency department will also refer you to a specialist when appropriate. This referral assures that you have the opportunity for follow-up care with a s pecialist. All of these measure are taken in an effort to provide you with optimal care, which includes your follow-up. Under all circumstances we always encourage you to contact your private physici an who remains a resource for coordinating your care. When calling for follow-up care, please make the office aware that this follow-up is from your recent emergency room visit. If for any reason you are refused follow-up, please contact the [facility] Emergency Department at and asked to speak to the emergency department charge nurse. If you do not have a primary care physician that is caring for you, you can contact these clinics below to set up an appointment to establish care: [facility] - [facility] [address] [place] [id number] [facility] [address] [place] [id number] Sepsis Event Note (ED) - Evaluation Sepsis Screening Result: No Definite Risk - Focused Exam Vital Signs: Vital Signs Temp Pulse Resp BP Pulse Ox 02/16/20 17:47 77 16 96/52 L 97 02/16/20 16:36 36 C L 82 18 105/69 98
[2020-02-16 17:47] VITALS: BP 96/52; PULSE 77
== END 2020-02-16 17:47 | disposition home or self-care (01) ==
LOC: MW.ED 16:24
DX: Z48.00 Encounter for change or removal of nonsurgical wound dressing (principal); Z90.49 Acquired absence of other specified parts of digestive tract
CPT/HCPCS: 99283; A9270; 99282

== ENCOUNTER 2020-02-18 12:22 | Emergency (ER) | payer MEDICAID ==
[2020-02-18 12:32] VITALS: BP 117/68; PULSE 88
--- NOTE | 2020-02-18 12:37 | EDM.PDOC ---
ED HPI GENERAL MEDICAL PROBLEM - General Chief Complaint: Wound Recheck Stated Complaint: WOUND CARE OF LEFT ARM Time Seen by Provider: 02/18/20 12:23 Source of Information: Reports: Patient History Limitations: Reports: No Limitations - History of Present Illness INITIAL COMMENTS - FREE TEXT/NARRATIVE: HISTORY AND PHYSICAL: History of present illness: Patient is a 34-year-old female who presents to the emergency room for wound recheck and I&D repacking. She was evaluated on 02/13 for a cellulitis/abscess related to IV drug use. She did have an I&D of the abscess site in the left antecubital fossa. Area was packed with iodoform. She has been using the emergency room for wound reevaluation and packing changes. She states while applying her dressing today the packing had fallen out and she is here for repacking. She has been encouraged to follow-up with Dr. Elkins, her primary care provider for dressing changes although has not made an appointment. She is also been encouraged to follow-up with Dr. Garrido, general surgeon, but is yet to make this appointment as well. Patient denies any fever, chills, headache, change in vision, syncope or near syncope. Denies any chest pain, back pain, shortness of breath or cough. Denies any abdominal pain, nausea, vomiting, diarrhea, constipation or dysuria. Has not noted any blood in urine or stool. Patient has been eating and drinking appropriately. Review of systems: As per history of present illness and below otherwise all systems reviewed and negative. Past medical history: As per history of present illness and as reviewed below otherwise noncontributory. Surgical history: As per history of present illness and as reviewed below otherwise noncontributory. Social history: See social history for further information Family history: As per history of present illness and as reviewed below otherwise noncontributory. Physical exam: General: Well developed and well nourished. Alert and orientated x 3. Nontoxic in appearance and in no acute distress. Vital signs are stable and have been reviewed by me. Nursing notes were reviewed. HEENT: Atraumatic, normocephalic, pupils equal and reactive bilaterally, negative for conjunctival pallor or scleral icterus, mucous membranes moist, trachea midline. No drooling or trismus noted. No meningeal signs. No hot potato voice noted. Lungs: Clear to auscultation, breath sounds equal bilaterally. Normal work of breathing, no accessory muscles used. Heart: S1S2, regular rate and rhythm without overt murmur Abdomen: Soft, nondistended, nontender. Skin: Incision site noted to the left lateral antecubital fossa. There is marker in the antecubital region from previous cellulitis margins, the redness is approximately 2 fingerbreadths in from the marker and is faint in appearance. No fluctuance or induration is noted. Remaining skin is intact, warm, dry. No lesions or rashes noted. Hematologic: No petechiae or purpra. Mucosa appropriate color and normal nail bed color and refill. Extremities: Atraumatic, moves all extremities per self without difficulty or deficits, negative for cords or calf pain. Neurovascular unremarkable. Neuro: Awake, alert, oriented. Cranial nerves II through XII unremarkable. Cerebellum unremarkable. Motor and sensory unremarkable throughout. Exam nonfocal. Psychiatric: Mood and affect are appropriate. Normal thought process. Answering questions appropriately. Notes: Fourth inch iodoform packing was placed. Patient tolerated well. She is currently taking her Bactrim DS. We discussed signs and symptoms that would prompt them to return to the Emergency Department. Medication, follow up and supportive care measures were reviewed and discussed. Voices understanding and is agreeable to plan of care. Denies any further questions or concerns at this time. Diagnostics: None Therapeutics: Incision packing and wound care Prescription: None Impression: Wound reevaluation Plan: 1. Today your physical exam showed improvement of your I&D/cellulitis site. Continue taking your Bactrim DS. Your incision site still needs dressing changes, you can follow-up with Dr. Fallon or Genevieve as we discussed. 2. You can alternate Tylenol and ibuprofen as needed for pain management. 3. We always encourage you to follow up with your primary care provider or recommended specialist in the next few days for re-evaluation and further care/management. If your symptoms should worsen, new symptoms develop or any of the signs and symptoms we discussed should arise please return to the emergency room or call 911 (if needed). Definitive disposition and diagnosis as appropriate pending reevaluation and review of above. - Related Data Allergies Allergy/AdvReac Type Severity Reaction Status Date / Time No Known Allergies Allergy Verified 02/18/20 12:30 Home Meds: Home Meds Sulfamethoxazole/Trimethoprim [Bactrim Ds Tablet] 1 each PO BID 10 Days #20 tablet 02/12/20 [Rx] Ondansetron [Zofran ODT] 4 mg PO Q6H PRN #8 tab.dis 02/15/20 [Rx] Past Medical History - Past Health History Medical/Surgical History: Denies Medical/Surgical History HEENT History: Reports: Impaired Vision Cardiovascular History: Reports: None Respiratory History: Reports: None Gastrointestinal History: Reports: None Genitourinary History: Reports: None 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: Musculoskeletal History: Reports: None Neurological History: Reports: None Psychiatric History: Reports: Addiction, Anxiety, Depression, Suicide Attempt, Other (See Below) Other Psychiatric History: substance abuse Endocrine/Metabolic History: Reports: Diabetes, Gestational, Diabetes, Type II, Obesity/BMI 30+ Insulin Pump Model and Equip Maint Eng: None Hematologic History: Reports: Other (See Below) Other Hematologic History: thrombocytopenia Immunologic History: Reports: None Oncologic (Cancer) History: Reports: None Dermatologic History: Reports: None - Infectious Disease History Infectious Disease History: Reports: None - Past Surgical History Head Surgeries/Procedures: Reports: None Cardiovascular Surgical History: Reports: None Respiratory Surgical History: Reports: None GI Surgical History: Reports: Appendectomy, Cholecystectomy Musculoskeletal Surgical History: Reports: None Social & Family History - Family History Family Medical History: Noncontributory Cardiac: Reports: Heart Murmur : Reports: Other (See Below) Other Family History: kidney disease Psychiatric: Reports: Autism Immunologic: Reports: Other (See Below) Other Immunologic Family History: Hepatitis C Oncologic: Reports: Colon - Tobacco Use Smoking Status *Q: Never Smoker - Caffeine Use Caffeine Use: Reports: None - Recreational Drug Use Recreational Drug Type: Reports: Methamphetamine Recreational Drug Use Frequency: Not Used In Over 1 Month ED ROS GENERAL - Review of Systems Review Of Systems: Comprehensive ROS is negative, except as noted in HPI. ED EXAM, SKIN/RASH Exam: See Below (See dictation) Course - Vital Signs Last Recorded V/S: Last Vital Signs Temp 96.8 F L 02/18/20 12:30 Pulse 88 02/18/20 12:30 Resp 17 02/18/20 12:30 BP 117/68 02/18/20 12:30 Pulse Ox 98 02/18/20 12:30 Departure - Departure Time of Disposition: 12:36 Disposition: Home, Self-Care 01 Clinical Impression: Abscess re-check - Discharge Information Referrals: Dick Elkins MD [Primary Care Provider] - Forms: ED Department Discharge Additional Instructions: The following information is given to patients seen in the emergency department who are being discharged to home. This information is to outline your options for follow-up care. We provide all patients seen in our emergency department with a follow-up referral. The need for follow-up, as well as the timing and circumstances, are variable depending upon the specifics of your emergency department visit. If you don't have a primary care physician on staff, we will provide you with a referral. We always advise you to contact your personal physician following an emergency department visit to inform them of the circumstance of the visit and for follow-up with them and/or the need for any referrals to a consulting specialist. The emergency department will also refer you to a specialist when appropriate. This referral assures that you have the opportunity for follow-up care with a specialist. All of these measure are taken in an effort to provide you with optimal care, which includes your follow-up. Under all circumstances we always encourage you to contact your private physician who remains a resource for coordinating your care. When calling for follow-up care, please make the office aware that this follow-up is from your recent emergency room visit. If for any reason you are refused follow-up, please contact the [facility] Emergency Department at and asked to speak to the emergency department charge nurse. [facility] [address] [place] [id number] [address] Thank you for choosing the [facility] emergency department in [place] for your medical needs today. It was a pleasure caring for you. Today you were seen in the emergency department for wound recheck. 1. Today your physical exam showed improvement of your I&D/cellulitis site. Continue taking your Bactrim DS. Your incision site still needs dressing changes, you can follow-up with Dr. Fallon or Genevieve as we discussed. 2. You can alternate Tylenol and ibuprofen as needed for pain management. 3. We always encourage you to follow up with your primary care provider or recommended specialist in the next few days for re-evaluation and further care/management. If your symptoms should worsen, new symptoms develop or any of the signs and symptoms we discussed should arise please return to the emergency room or call 911 (if needed). Sepsis Event Note (ED) - Evaluation Sepsis Screening Result: No Definite Risk - Focused Exam Vital Signs: Vital Signs Temp Pulse Resp BP Pulse Ox 02/18/20 12:30 96.8 F L 88 17 117/68 98
== END 2020-02-18 12:54 | disposition home or self-care (01) ==
LOC: MW.ED 12:22
DX: Z48.817 Encounter for surgical aftercare following surgery on the skin and subcutaneous tissue (principal); E11.9 Type 2 diabetes mellitus without complications; E66.9 Obesity, unspecified; Z68.41 Body mass index [BMI] 40.0-44.9, adult; Z90.49 Acquired absence of other specified parts of digestive tract; Z90.89 Acquired absence of other organs
CPT/HCPCS: 99282

== ENCOUNTER 2020-02-21 10:13 | Emergency (ER) | payer MEDICAID ==
--- NOTE | 2020-02-21 11:06 | EDM.PDOC ---
ED [facility] GENERAL MEDICAL PROBLEM - General Chief Complaint: Wound Recheck Stated Complaint: WOUND REPAKING Time Seen by Provider: 02/21/20 10:39 Source of Information: Reports: Patient History Limitations: Reports: No Limitations - History of Present Illness INITIAL COMMENTS - FREE TEXT/NARRATIVE: HISTORY AND PHYSICAL: History of present illness: Patient is a 34-year-old female who presents to the ED today with concern of dressing change of an abscess of her left AC that she had drained this past week. Patient states that she has an appointment with Dr. Garrido, [facility], on Friday for follow-up of her abscess drainage. Patient denies any symptoms or concerns at this time. Patient denies fever, chills, chest pain, shortness of breath, or cough. Denies headache, neck stiff ness, change in vision, syncope, or near syncope. Denies nausea, vomiting, abdominal pain, diarrhea, constipation, or dysuria. Has not noted any blood in urine or stool. Patient has been eating and drinking appropriately. Review of systems: As per history of present illness and below otherwise all systems reviewed and negative. Past medical history: As per history of present illness and as reviewed below otherwise noncontributory. Surgical history: As per history of present illness and as reviewed below otherwise noncontributory. Social history: See social history for further information Family history: As per history of present illness and as reviewed below otherwise noncontributory. Physical exam: General: Patient is alert, oriented, and in no acute distress. Patient sitting comfortably on exam table. HEENT: Atraumatic, normocephalic, pupils equal and reactive bilaterally, negative for conjunctival pallor or scleral icterus, mucous membranes moist, TMs normal bilaterally, throat clear, neck supple, nontender, trachea midline. No drooling or trismus noted. No meningeal signs. No hot potato voice noted. Lungs: Clear to auscultation, breath sounds equal bilaterally, chest nontender. Heart: S1S2, regular rate and rhythm without overt murmur Abdomen: Soft, nondistended, nontender. Negative for masses or hepatosplenomegaly. Negative for costovertebral tenderness. Pelvis: Stable nontender. Genitourinary: Deferred. Rectal: Deferred. Skin: Intact, warm, dry. No lesions or rashes noted. Extremities: There is a drained abscess of the left AC with 1/4 inch iodoform packing in place. This area appears to be healing well without erythema and no drainage noted at this time. Otherwise, atraumatic, negative for cords or calf pain. Neurovascular unremarkable. Neuro: Awake, alert, oriented. Cranial nerves II through XII unremarkable. Cerebellum unremarkable. Motor and sensory unremarkable throughout. Exam nonfocal. Notes: There was 1/4 inch iodoform that was removed from the abscess drained area of the left AC. This area was repacked using 1/4 inch iodoform. The area was then dressed with sterile gauze dressing. Patient tolerated procedure well. D iscussed importance for follow-up with a general surgeon as well as her primary care provider. Voices understanding and is agreeable to plan of care. Denies any further questions or concerns at this time. Diagnostics: None Therapeutics: 1/4 in iodoform, sterile dressing Prescription: None Impression: Encounter for wound care Plan: 1. You can alternate ibuprofen and Tylenol as directed for pain and discomfort. 2. Follow-up with the general surgeon and primary care provider as scheduled and as discussed. Return to the ED as needed and as discussed. Definitive disposition and diagnosis as appropriate pending reevaluation and review of above. left arm Pain Score (Numeric/FACES): 6 - Related Data Allergies Allergy/AdvReac Type Severity Reaction Status Date / Time No Known Allergies Allergy Verified 02/21/20 10:23 Home Meds: Home Meds Sulfamethoxazole/Trimethoprim [Bactrim Ds Tablet] 1 each PO BID 10 Days #20 tablet 02/12/20 [Rx] Ondansetron [Zofran ODT] 4 mg PO Q6H PRN #8 tab.dis 02/15/20 [Rx] Past Medical History - Past Health History Medical/Surgical History: Denies Medical/Surgical History HEENT History: Reports: Impaired Vision Cardiovascular History: Reports: None Respiratory History: Reports: None Gastrointestinal History: Reports: None Genitourinary History: Reports: None 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: Musculoskeletal History: Reports: None Neurological History: Reports: None Psychiatric History: Reports: Addiction, Anxiety, Depression, Suicide Attempt, Other (See Below) Other Psychiatric History: substance abuse Endocrine/Metabolic History: Reports: Diabetes, Gestational, Diabetes, Type II, Obesity/BMI 30+ Insulin Pump Model and Certified Fraud Examiner: None Hematologic History: Reports: Other (See Below) Other Hematologic History: thrombocytopenia Immunologic History: Reports: None Oncologic (Cancer) History: Reports: None Dermatologic History: Reports: None - Infectious Disease History Infectious Disease History: Reports: None - Past Surgical History Head Surgeries/Procedures: Reports: None HEENT Surgical History: Reports: None Cardiovascular Surgical History: Reports: None Respiratory Surgical History: Reports: None GI Surgical History: Reports: Appendectomy, Cholecystectomy Musculoskeletal Surgical History: Reports: None Social & Family History - Family History Family Medical History: Noncontributory Cardiac: Reports: Heart Murmur : Reports: Other (See Below) Other Family History: kidney disease Psychiatric: Reports: Autism Immunologic: Reports: Other (See Below) Other Immunologic Family History: Hepatitis C Oncologic: Reports: Colon - Tobacco Use Smoking Status *Q: Never Smoker Second Hand Smoke Exposure: No - Caffeine Use Caffeine Use: Reports: None - Recreational Drug Use Recreational Drug Use: No ED ROS GENERAL - Review of Systems Review Of Systems: Comprehensive ROS is negative, except as noted in HPI. ED EXAM, GENERAL - Physical Exam Exam: See Below (see dictation) Course - Vital Signs Last Recorded V/S: Last Vital Signs Temp 95.4 F L 02/21/20 10:20 Pulse 92 02/21/20 10:20 Resp 18 02/21/20 10:20 BP 121/63 02/21/20 10:20 Pulse Ox 97 02/21/20 10:20 Departure - Departure Time of Disposition: 11:02 Disposition: Home, Self-Care 01 Clinical Impression: Encounter for wound care - Discharge Information Referrals: Dick Elkins MD [Primary Care Provider] - Additional Instructions: The following information is given to patients seen in the emergency department who are being discharged to home. This information is to outline your options for follow-up care. We provide all patients seen in our emergency department with a follow-up referral. The need for follow-up, as well as the timing and circumstances, are variable depending upon the specifics of your emergency department visit. If you don't have a primary care physician on staff, we will provide you with a referral. We always advise you to contact your personal physician following an emergency department visit to inform them of the circumstance of the visit and for follow-up with them and/or the need for any referrals to a consulting specialist. The emergency department will also refer you to a specialist when appropriate. This referral assures that you have the opportunity for follow-up care with a specialist. All of these measure are taken in an effort to provide you with optimal care, which includes your follow-up. Under all circumstances we always encourage you to contact your private physician who remains a resource for coordinating your care. When calling for follow-up care, please make the office aware that this follow-up is from your recent emergency room visit. If for any reason you are refused follow-up, please contact the Emergency Department at and asked to speak to the emergency department charge nurse. Primary Care [address] [place] [address] [id number] [facility] [address] [place] [id number] 1. You can alternate ibuprofen and Tylenol as directed for pain and discomfort. 2. Follow-up with the general surgeon and primary care provider as scheduled and as discussed. Return to the ED as needed and as discussed. Sepsis Event Note (ED) - Evaluation Sepsis Screening Result: No Definite Risk - Focused Exam Vital Signs: Vital Signs Temp Pulse Resp BP Pulse Ox 02/21/20 10:20 95.4 F L 92 18 121/63 97
[2020-02-21 11:08] VITALS: BP 103/59; PULSE 79
== END 2020-02-21 11:09 | disposition home or self-care (01) ==
LOC: MW.ED 10:13
DX: Z48.817 Encounter for surgical aftercare following surgery on the skin and subcutaneous tissue (principal); E66.9 Obesity, unspecified; Z68.42 Body mass index [BMI] 45.0-49.9, adult
CPT/HCPCS: 99282

== ENCOUNTER 2023-04-12 14:23 | Emergency (ER) | payer MEDICAID ==
[2023-04-12] MEDS ORDERED: Lidocaine 4% 1 each Patch TOP STA (15:17)
[2023-04-12 16:46] VITALS: BP 133/81; PULSE 72
== END 2023-04-12 16:45 | disposition home or self-care (01) ==
LOC: MW.ED 14:23
DX: M54.10 Radiculopathy, site unspecified (principal); E11.9 Type 2 diabetes mellitus without complications; E66.9 Obesity, unspecified; Z68.42 Body mass index [BMI] 45.0-49.9, adult
CPT/HCPCS: 73030; 99284; A9270; 99283

== ENCOUNTER 2023-04-19 23:55 | Emergency (ER) | payer MEDICAID ==
[2023-04-20] MEDS ORDERED: Sodium Chloride 0.9% 1,000 ML IV ONE (00:37)
[2023-04-20] MEDS ORDERED: Ondansetron 4 MG/2 ML SDV IVPUSH ONE (00:37)
[2023-04-20 01:02] LABS: BASOPHILS ABSOLUTE AUTO 0.04 K/uL (0.00-0.20); BASOPHILS PERCENT AUTO 0.4 % (0.0-1.0); EOSINOPHILS ABSOLUTE AUTO 0.01 K/uL (0.00-0.45); EOSINOPHILS PERCENT AUTO 0.1 % (0.0-6.0); HEMATOCRIT 38.3 % (37.0-47.0); HEMOGLOBIN 13.7 g/dL (12.0-16.0); IMMATURE GRAN ABSOLUTE AUTO 0.03 K/uL (0.00-0.05); IMMATURE GRAN PERCENT AUTO 0.3 % (0.0-0.4); LYMPHOCYTES ABSOLUTE AUTO 1.17 K/uL (1.00-4.80); LYMPHOCYTES PERCENT AUTO 13.1 % (24.0-44.0); MEAN CORPUSCULAR HEMOGLOBIN 31.6 pg (28.0-32.0); MEAN CORPUSCULAR HGB CONC 35.8 g/dL (32.0-36.0); MEAN CORPUSCULAR VOLUME 88.5 fL (83.0-99.0); MEAN PLATELET VOLUME 8.7 fL (9.4-12.3); MONOCYTES ABSOLUTE AUTO 0.32 K/uL (0.00-0.80); MONOCYTES PERCENT AUTO 3.6 % (0.0-8.0); NEUTROPHILS ABSOLUTE AUTO 7.35 K/uL (1.80-7.70); NEUTROPHILS PERCENT AUTO 82.5 % (41.0-71.0); PLATELET COUNT,PLT 144 K/uL (150-400); RED BLOOD CELL COUNT 4.33 M/uL (4.10-5.30); WHITE BLOOD CELL COUNT,WBC 8.92 K/uL (3.9-11.3)
[2023-04-20 01:26] LABS: A/G RATIO 0.9 (0.9-1.6); ALBUMIN 3.8 g/dL (3.4-5.0); BILIRUBIN TOTAL 0.6 mg/dL (0.2-1.0); CALCIUM 8.3 mg/dL (8.5-10.1); CARBON DIOXIDE,CO2 25.3 mmol/L (21.0-32.0); CREATININE 0.8 mg/dL (0.6-1.0); EST CRCL DRUG DOSING (CG) 76.15 mL/min; MAGNESIUM 1.6 mg/dL (1.8-2.4); POTASSIUM,K 3.8 mmol/L (3.5-5.1)
[2023-04-20 03:53] VITALS: BP 152/85; PULSE 80
== END 2023-04-20 01:36 | disposition home or self-care (01) ==
LOC: MW.ED 23:55
DX: T38.3X1A Poisoning by insulin and oral hypoglycemic [antidiabetic] drugs, accidental (unintentional), initial encounter (principal); E11.9 Type 2 diabetes mellitus without complications; E66.9 Obesity, unspecified; Z79.84 Long term (current) use of oral hypoglycemic drugs; Z79.4 Long term (current) use of insulin; Z68.43 Body mass index [BMI] 50.0-59.9, adult
CPT/HCPCS: 36415; 80053; 82947; 83735; 85025; 96361; 96374; 99284; J2405; J7030

== ENCOUNTER 2023-05-03 04:10 | Emergency (ER) | payer MEDICAID ==
[2023-05-03 05:04] LABS: BASOPHILS ABSOLUTE AUTO 0.04 K/uL (0.00-0.20); BASOPHILS PERCENT AUTO 0.6 % (0.0-1.0); EOSINOPHILS ABSOLUTE AUTO 0.12 K/uL (0.00-0.45); EOSINOPHILS PERCENT AUTO 1.8 % (0.0-6.0); HEMATOCRIT 37.6 % (37.0-47.0); HEMOGLOBIN 13.6 g/dL (12.0-16.0); IMMATURE GRAN ABSOLUTE AUTO 0.01 K/uL (0.00-0.05); IMMATURE GRAN PERCENT AUTO 0.1 % (0.0-0.4); LYMPHOCYTES PERCENT AUTO 29.9 % (24.0-44.0); MEAN CORPUSCULAR HEMOGLOBIN 32.2 pg (28.0-32.0); MEAN CORPUSCULAR HGB CONC 36.2 g/dL (32.0-36.0); MEAN CORPUSCULAR VOLUME 88.9 fL (83.0-99.0); MEAN PLATELET VOLUME 8.8 fL (9.4-12.3); MONOCYTES ABSOLUTE AUTO 0.44 K/uL (0.00-0.80); MONOCYTES PERCENT AUTO 6.6 % (0.0-8.0); NEUTROPHILS ABSOLUTE AUTO 4.08 K/uL (1.80-7.70); PLATELET COUNT,PLT 147 K/uL (150-400); RED BLOOD CELL COUNT 4.23 M/uL (4.10-5.30); WHITE BLOOD CELL COUNT,WBC 6.69 K/uL (3.9-11.3)
[2023-05-03 05:32] LABS: A/G RATIO 0.9 (0.9-1.6); ALBUMIN 3.6 g/dL (3.4-5.0); BILIRUBIN TOTAL 0.4 mg/dL (0.2-1.0); CALCIUM 8.6 mg/dL (8.5-10.1); CARBON DIOXIDE,CO2 29.2 mmol/L (21.0-32.0); CREATININE 0.9 mg/dL (0.6-1.0); EST CRCL DRUG DOSING (CG) 83.23 mL/min; POTASSIUM,K 3.6 mmol/L (3.5-5.1); PROTEIN TOTAL,TP 7.6 g/dL (6.4-8.2)
[2023-05-03] MEDS ORDERED: Iopamidol 755 MG/ML 500 ML Multipack Bottle IVPUSH STA (05:55)
[2023-05-03 07:48] VITALS: BP 141/77; PULSE 73
== END 2023-05-03 07:51 | disposition home or self-care (01) ==
LOC: MW.ED 04:10
DX: M25.511 Pain in right shoulder (principal); R06.02 Shortness of breath; E11.9 Type 2 diabetes mellitus without complications; E66.9 Obesity, unspecified; Z68.41 Body mass index [BMI] 40.0-44.9, adult
CPT/HCPCS: 36415; 71046; 71275; 73030; 80053; 84484; 84703; 85025; 85379; 99285; Q9967; 93010; 99284

== ENCOUNTER 2023-06-26 01:40 | Emergency (ER) | payer MEDICAID ==
[2023-06-26] MEDS ORDERED: Ondansetron 4 MG/2 ML SDV IVPUSH STA (01:43)
[2023-06-26] MEDS ORDERED: Sodium Chloride 0.9% 10 ML Syringe FLUSH PRN (01:44)
[2023-06-26] MEDS ORDERED: Sodium Chloride 0.9% 2.5 ML Syringe FLUSH PRN (01:44)
[2023-06-26] MEDS ORDERED: Sodium Chloride 0.9% 1,000 ML IV ONE ×2 (01:45→04:44)
[2023-06-26 01:50] LABS: BASE EXCESS VENOUS -5.2 (-2.0-3.0); PH,VENOUS 7.32 (7.31-7.41)
[2023-06-26 01:54] LABS: BASOPHILS ABSOLUTE AUTO 0.04 K/uL (0.00-0.20); BASOPHILS PERCENT AUTO 0.5 % (0.0-1.0); EOSINOPHILS PERCENT AUTO 1.3 % (0.0-6.0); HEMATOCRIT 40.6 % (37.0-47.0); HEMOGLOBIN 14.4 g/dL (12.0-16.0); IMMATURE GRAN ABSOLUTE AUTO 0.03 K/uL (0.00-0.05); IMMATURE GRAN PERCENT AUTO 0.4 % (0.0-0.4); LYMPHOCYTES ABSOLUTE AUTO 3.17 K/uL (1.00-4.80); LYMPHOCYTES PERCENT AUTO 42.4 % (24.0-44.0); MEAN CORPUSCULAR HEMOGLOBIN 31.2 pg (28.0-32.0); MEAN CORPUSCULAR HGB CONC 35.5 g/dL (32.0-36.0); MEAN CORPUSCULAR VOLUME 88.1 fL (83.0-99.0); MEAN PLATELET VOLUME 8.6 fL (9.4-12.3); MONOCYTES PERCENT AUTO 5.4 % (0.0-8.0); NEUTROPHILS ABSOLUTE AUTO 3.73 K/uL (1.80-7.70); PLATELET COUNT,PLT 145 K/uL (150-400); RED BLOOD CELL COUNT 4.61 M/uL (4.10-5.30); WHITE BLOOD CELL COUNT,WBC 7.47 K/uL (3.9-11.3)
[2023-06-26 02:14] LABS: ALANINE AMINOTRANSFERASE,ALT 78 IU/L (14-63); ALBUMIN 3.9 g/dL (3.4-5.0); ALKALINE PHOSPHATASE 152 U/L (46-116); ASPARTATE AMNIOTRANSFERASE,AST 36 IU/L (15-37); BILIRUBIN TOTAL 0.3 mg/dL (0.2-1.0); BLOOD UREA NITROGEN,BUN 9 mg/dL (7.0-18.0); CALCIUM 8.5 mg/dL (8.5-10.1); CARBON DIOXIDE,CO2 22.2 mmol/L (21.0-32.0); CHLORIDE,CL 101 mmol/L (98-107); CREATININE 0.9 mg/dL (0.6-1.0); GLUCOSE RANDOM 446 mg/dL (74-106); LIPASE 39 U/L (16-77); POTASSIUM,K 3.4 mmol/L (3.5-5.1); SODIUM,NA 138 mmol/L (136-145)
[2023-06-26 02:15] LABS: ESTIMATED GFR 84 mL/min (>60)
[2023-06-26] MEDS ORDERED: 50% Dextrose in Water 50 ML Syringe IVPUSH PRN ×2 (03:34→05:28)
[2023-06-26] MEDS ORDERED: Insulin Regular, Human 100 Units/ML 10 ML Vial IVPUSH STA (03:34)
[2023-06-26] MEDS ORDERED: Glucagon,Human Recombinant 1 MG Vial IM PRN ×2 (03:34→05:28)
[2023-06-26 04:18] LABS: CARBON DIOXIDE,CO2 22.2 mmol/L (21.0-32.0); CREATININE 0.8 mg/dL (0.6-1.0); EST CRCL DRUG DOSING (CG) 76.15 mL/min; POTASSIUM,K 4.2 mmol/L (3.5-5.1)
[2023-06-26] MEDS ORDERED: Insulin Regular, Human 100 Units/ML 10 ML Vial IVPUSH ONE (05:28)
[2023-06-26 06:27] VITALS: BP 148/81; PULSE 91
== END 2023-06-26 06:33 | disposition home or self-care (01) ==
LOC: MW.ED 01:40
DX: R11.10 Vomiting, unspecified (principal); E87.5 Hyperkalemia; E11.9 Type 2 diabetes mellitus without complications; E66.9 Obesity, unspecified; Z79.899 Other long term (current) drug therapy; Z68.53 Body mass index [BMI] pediatric, 85th percentile to less than 95th percentile for age
CPT/HCPCS: 36415; 80048; 80053; 82803; 82947; 83690; 85025; 96361; 96374; 99284; J2405; J3490; J7030; J1815-GY

== ENCOUNTER 2023-12-05 21:31 | Emergency (ER) | payer MEDICAID ==
[2023-12-05 21:50] VITALS: BP 175/86
[2023-12-05] MEDS: Ibuprofen 600 MG Tab PO ONE (22:05)
[2023-12-05] MEDS: Cephalexin 500 MG Cap PO ONE (22:06)
[2023-12-05 22:13] VITALS: PULSE 85
== END 2023-12-05 22:12 | disposition home or self-care (01) ==
LOC: MW.ED 21:31
DX: K04.7 Periapical abscess without sinus (principal); E66.9 Obesity, unspecified; E11.9 Type 2 diabetes mellitus without complications; Z75.8 Other problems related to medical facilities and other health care; Z79.4 Long term (current) use of insulin; Z79.899 Other long term (current) drug therapy; Z90.49 Acquired absence of other specified parts of digestive tract; Z68.43 Body mass index [BMI] 50.0-59.9, adult
CPT/HCPCS: 99282; A9270; 99283

== ENCOUNTER 2024-09-30 19:35 | Emergency (ER) | payer MEDICAID ==
[2024-09-30 21:05] VITALS: BP 140/70; PULSE 78
== END 2024-09-30 21:03 | disposition home or self-care (01) ==
LOC: MW.ED 19:35
DX: R53.83 Other fatigue (principal); E11.9 Type 2 diabetes mellitus without complications; E66.9 Obesity, unspecified; Z90.49 Acquired absence of other specified parts of digestive tract; Z79.4 Long term (current) use of insulin; Z79.899 Other long term (current) drug therapy; Z75.8 Other problems related to medical facilities and other health care
CPT/HCPCS: 82947; 99282; 99284

== ENCOUNTER 2025-02-24 22:26 | Emergency (ER) | payer MEDICAID ==
[2025-02-25] MEDS: Acetaminophen/HYDROcodone 325-5 MG Tab PO ONE (00:36)
[2025-02-25 01:27] VITALS: BP 124/72; PULSE 84
== END 2025-02-25 01:27 | disposition home or self-care (01) ==
LOC: MW.ED 22:26
DX: S62.336A Displaced fracture of neck of fifth metacarpal bone, right hand, initial encounter for closed fracture (principal); Z79.4 Long term (current) use of insulin; Z79.899 Other long term (current) drug therapy; E11.9 Type 2 diabetes mellitus without complications; Z90.49 Acquired absence of other specified parts of digestive tract; W18.39XA Other fall on same level, initial encounter; Y93.89 Activity, other specified
CPT/HCPCS: 29125; 73110; 73130; 99283; A9270

== ENCOUNTER 2025-04-09 14:20 | Emergency (ER) | payer MEDICAID ==
[2025-04-09 14:37] VITALS: BP 135/66; PULSE 88
== END 2025-04-09 16:30 | disposition home or self-care (01) ==
LOC: MW.ED 14:20
DX: J06.9 Acute upper respiratory infection, unspecified (principal); E66.9 Obesity, unspecified; E11.9 Type 2 diabetes mellitus without complications; Z79.4 Long term (current) use of insulin; Z79.899 Other long term (current) drug therapy; Z86.16 Personal history of COVID-19; Z90.49 Acquired absence of other specified parts of digestive tract; Z68.41 Body mass index [BMI] 40.0-44.9, adult
CPT/HCPCS: 87428-QW; 99283

== ENCOUNTER 2025-04-16 02:14 | Emergency (ER) | payer MEDICAID ==
[2025-04-16 02:18] VITALS: BP 157/104; PULSE 106
== END 2025-04-16 02:33 ==
LOC: MW.ED 02:14
DX: Z02.89 Encounter for other administrative examinations (principal); I10 Essential (primary) hypertension; E66.9 Obesity, unspecified; E11.9 Type 2 diabetes mellitus without complications; Z75.3 Unavailability and inaccessibility of health-care facilities; Z79.4 Long term (current) use of insulin; Z79.899 Other long term (current) drug therapy; Z90.49 Acquired absence of other specified parts of digestive tract; Z68.38 Body mass index [BMI] 38.0-38.9, adult
CPT/HCPCS: 99283

== ENCOUNTER 2025-06-01 19:40 | Emergency (ER) | payer MEDICAID ==
[2025-06-01] MEDS ORDERED: Sodium Chloride 0.9% 2.5 ML Syringe FLUSH PRN (19:44)
[2025-06-01] MEDS ORDERED: Sodium Chloride 0.9% 10 ML Syringe FLUSH PRN (19:44)
[2025-06-01 20:09] LABS: BASOPHILS ABSOLUTE AUTO 0.03 K/uL (0.00-0.20); BASOPHILS PERCENT AUTO 0.4 % (0.0-1.0); EOSINOPHILS ABSOLUTE AUTO 0.09 K/uL (0.00-0.45); EOSINOPHILS PERCENT AUTO 1.2 % (0.0-6.0); IMMATURE GRAN ABSOLUTE AUTO 0.02 K/uL (0.00-0.05); IMMATURE GRAN PERCENT AUTO 0.3 % (0.0-0.4); LYMPHOCYTES ABSOLUTE AUTO 3.18 K/uL (1.00-4.80); LYMPHOCYTES PERCENT AUTO 42.6 % (24.0-44.0); MEAN PLATELET VOLUME 8.9 fL (9.4-12.3); MONOCYTES ABSOLUTE AUTO 0.41 K/uL (0.00-0.80); MONOCYTES PERCENT AUTO 5.5 % (0.0-8.0); NEUTROPHILS ABSOLUTE AUTO 3.74 K/uL (1.80-7.70); NEUTROPHILS PERCENT AUTO 50.0 % (41.0-71.0); NRBC ABSOLUTE 0.00 K/uL (0.00-0.02); NRBC PERCENT 0.0 /100WBC (0.0-0.2); PLATELET COUNT,PLT 138 K/uL (150-400); RED BLOOD CELL COUNT 4.25 M/uL (4.10-5.30); WHITE BLOOD CELL COUNT,WBC 7.47 K/uL (3.9-11.3)
[2025-06-01 20:12] LABS: BASE EXCESS VENOUS 5.4 (-2.0-3.0); BICARBONATE,VENOUS 30.0 mEq/L (22-29); PCO2 VENOUS 42.0 mmHG (41-51); PH,VENOUS 7.46 (7.32-7.43); PO2 VENOUS 51.0 mmHG (35-45)
[2025-06-01 20:18] LABS: INR 1.01 (0.86-1.11)
[2025-06-01] MEDS: Alum Hydrox/Mag Hydrox/Simeth 15 ML, Lidocaine 2% 5 ML PO ONE (20:24)
[2025-06-01 21:10] LABS: A/G RATIO 1.1 (0.9-1.6); ALANINE AMINOTRANSFERASE,ALT 20 IU/L (14-63); ASPARTATE AMNIOTRANSFERASE,AST 10 IU/L (15-37); BILIRUBIN TOTAL 0.6 mg/dL (0.2-1.0); BLOOD UREA NITROGEN,BUN 12 mg/dL (7.0-18.0); CARBON DIOXIDE,CO2 29.1 mmol/L (21.0-32.0); CHLORIDE,CL 105 mmol/L (98-107); CREATININE 0.8 mg/dL (0.6-1.0); EST CRCL DRUG DOSING (CG) 91.81 mL/min; ETHANOL BLOOD MEDICAL <3 mg/dL; GLUCOSE RANDOM 142 mg/dL (74-106); POTASSIUM,K 4.0 mmol/L (3.5-5.1); PROTEIN TOTAL,TP 7.3 g/dL (6.4-8.2); SODIUM,NA 140 mmol/L (136-145)
[2025-06-01 21:16] LABS: ESTIMATED GFR 96 mL/min (>60)
[2025-06-01 21:49] VITALS: BP 158/71; PULSE 71
== END 2025-06-01 21:48 | disposition home or self-care (01) ==
LOC: MW.ED 19:40
DX: K29.70 Gastritis, unspecified, without bleeding (principal); R11.2 Nausea with vomiting, unspecified; E66.9 Obesity, unspecified; E11.9 Type 2 diabetes mellitus without complications; Z79.899 Other long term (current) drug therapy; Z90.49 Acquired absence of other specified parts of digestive tract; Z68.38 Body mass index [BMI] 38.0-38.9, adult
CPT/HCPCS: 36415; 80053; 80143; 80179; 80307; 82803; 82947; 83036; 83690; 83735; 84703; 85025; 85610; 93005; 96360; 99284; J3490; J7030; 99283; A9270-GY